=== PATIENT | female | born 1965 | race Caucasian/White ===

== ENCOUNTER 2023-09-26 10:46 | Inpatient (IN) | payer MEDICARE ==
[2023-09-26] MEDS ORDERED: DUONEB 0.5-3 MG/3 ml Neb IH ONE (11:37)
[2023-09-26] MEDS: DUONEB 0.5-3 MG/3 ml Neb IH ONE (11:40)
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
[2023-09-26 11:43] LABS: A-aADO2 70; ABG HEMOGLOBIN 10.5; ABG POTASSIUM 3.5 (3.5-5.1); ARTERIAL BLD GAS O2 SATURATION 97.4 % (95-100); ARTERIAL BLOOD GAS BASE EXCESS 9.1 (-2.0-2.0); ARTERIAL BLOOD GAS FIO2 32 %; ARTERIAL BLOOD GAS PCO2 59 mmHg (35-45); ARTERIAL BLOOD GAS PO2 84 mmHg (75-100); ARTERIAL BLOOD GAS pH 7.39 (7.35-7.45); CARBOXYHEMOGLOBIN 1.5 % THgb (0.0-6.9); HCO3- 35.7 (22-28); HGB O2 SAT 94.7 g/dF (94-100); Lactic Acid 0.9 (0.4-2.0); Methhemoglobin 1.3 % (1.4-1.5); paO2 pAO1 0.55
[2023-09-26 11:44] LABS: Absolute Neutrophil Ct (ANC) 11.72 x10^3/uL (1.4-6.9); BASOPHIL % 0.6 % (0.0-0.4); Basophil (Absolute #) 0.08 x10^3/uL (0-0.4); Eosinophil % 0.9 % (0.00-5.0); Eosinophil (Absolute #) 0.12 x10^3/uL (0-0.5); Hematocrit 35.2 % (35-47); Hemoglobin 10.2 g/dL (12.0-16.0); IMMATURE GRAN # 0.07 x10^3u/L (0.00-0.03); IMMATURE GRAN % 0.5 % (0.00-0.4); Lymphocyte (Absolute #) 0.72 x10^3/uL (1.0-4.6); Lymphocytes % 5.3 % (24.0-44.0); Mean Cell Volume 88.4 fL (78-100); Mean Corpuscular Hemoglobin 25.6 pg (26-32); Mean Platelet Volume 9.5 fL (7.5-11.0); Monocytes % 6.6 % (0.0-12.0); Neutrophil % 86.1 % (36.0-66.0); Platelet Count 237 x10^3/uL (150-450); Red Blood Count 3.98 x10^6/uL (4.1-5.4); Red Cell Distribution Width 17.1 % (11.5-14.0); White Blood Count 13.6 x10^3/uL (4.0-10.5)
[2023-09-26 11:44] LABS: ABG SITE rt rad; ALLEN TEST OK? y
--- NOTE | 2023-09-26 11:47 | XRAY ---
Indication: Short of breath. Comparison: January 16, 2017 Portable apical lordotic chest demonstrates new cardiomegaly obscuring left mid to lower lung. Remaining visualized lungs are inflated and clear. Bony thorax intact.
[2023-09-26] MEDS ORDERED: Sterile H2O 10 ml IJ ONE (11:48)
[2023-09-26] MEDS ORDERED: solu-MEDROL ONE (11:48)
[2023-09-26] MEDS: solu-MEDROL 125 MG, Sterile H2O 10 ml 2 ML IV ONE (11:51)
[2023-09-26 12:15] LABS: ALBUMIN 3.4 g/dL (3.5-5.0); ANION GAP 9.3 MEQ/L (5-15); BILIRUBIN,TOTAL 1.2 mg/dL (0.2-1.3); Calcium 8.3 mg/dL (8.4-10.2); Creatinine 1 0.97 mg/dL (0.52-1.04); EST GLOMERULAR FILTRATION RATE 67.7 ML/MIN; MAGNESIUM 1.8 mg/dL (1.6-2.3); PROCALCITONIN 0.853 ng/mL (0.030-0.080); Potassium 3.5 mmol/L (3.5-5.1); Total Protein 7.1 g/dL (6.3-8.2)
[2023-09-26 12:36] LABS: INFLUENZA A NEGATIVE (NEGATIVE); INFLUENZA B NEGATIVE (NEGATIVE); RESPIRATORY SYNCTIAL VIRUS NEGATIVE (NEGATIVE); SARS-CoV-2 Xpert Express NEGATIVE (NEGATIVE)
[2023-09-26] MEDS ORDERED: LEVOFLOXACIN 750MG/150ML D5W 750 MG/150 ML BAG IV ONE (12:45)
[2023-09-26] MEDS: LEVOFLOXACIN 750MG/150ML D5W 750 MG/150 ML BAG IV STA (12:47)
[2023-09-26 13:23] LABS: Appearance Cloudy (Clear); Bacteria None Seen /HPF (None Seen); Bilirubin Negative (Negative); Blood Large (Negative); Epithelial Cells Rare /HPF (None Seen); Glucose, Urine Negative (Negative); Ketones Negative (Negative); Leukocyte Esterase Negative (Negative); Nitrite Negative (Negative); Ph 5.5 (4.6-8.0); Protein,Urine Dip 30 (Negative); Urobilinogen 0.2 mg/dL (0.2); WBC 0-2 /HPF (0-5)
[2023-09-26 13:47] LABS: RBC 21-50 /HPF (0-5)
[2023-09-26 13:48] LABS: ADD URINE CULTURE? NO (NO); Hyaline Casts 0-2 /LPF (0-2)
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
[2023-09-26] MEDS ORDERED: HUMALOG SQ PRN (15:06)
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
[2023-09-26] MEDS: NYSTOP POWDER 15 GM TP SCH (16:39)
[2023-09-26] MEDS: NORCO 5/325 MG PO PRN (16:40)
[2023-09-26] MEDS: DELTASONE 20 MG PO SCH (16:41)
[2023-09-26] MEDS: PROTONIX 40 MG IV IV SCH (16:41)
--- NOTE | 2023-09-26 17:35 | XRAY ---
Indication: Diabetic foot ulcer/sores. Two-dimensional sonogram and color Doppler imaging major venous vessels left lower leg performed. Comparison: November 04, 2015 Study again limited due to patient body habitus. No gross thrombus seen in the examined deep venous vessels of the left and right leg including greater saphenous vein. Veins demonstrate normal compressibility. Venous waveforms are normal with and without augmentation. Impression: Again Limited exam due to body habitus. Left and right legs again grossly negative for DVT.
[2023-09-26] MEDS: DUONEB 0.5-3 MG/3 ml Neb IH SCH (18:34)
[2023-09-26 20:52] LABS: Appearance Clear (Clear); Bacteria None Seen /HPF (None Seen); Bilirubin Negative (Negative); Blood Trace (Negative); Epithelial Cells None Seen /HPF (None Seen); Glucose, Urine Negative (Negative); Hyaline Casts NONE SEEN /LPF (0-2); Ketones Negative (Negative); Leukocyte Esterase Negative (Negative); Nitrite Negative (Negative); Ph 5.5 (4.6-8.0); Protein,Urine Dip 30 (Negative); Specific Gravity 1.025 (1.005-1.030); Urobilinogen 0.2 mg/dL (0.2); WBC 0-2 /HPF (0-5)
[2023-09-26 20:59] LABS: ADD URINE CULTURE? NO (NO)
[2023-09-26] MEDS: Seroquel 25 MG PO SCH (22:47)
[2023-09-26] MEDS: REQUIP 2MG TAB PO SCH (22:47)
[2023-09-26] MEDS: Cymbalta 30 MG Capsule PO SCH (22:47)
[2023-09-26] MEDS: IMODIUM 2 MG PO PRN (23:05)
[2023-09-27 08:52] LABS: Hematocrit 28.6 % (35-47); Hemoglobin 8.1 g/dL (12.0-16.0); Mean Cell Volume 87.5 fL (78-100); Mean Corpuscular Hemoglobin 24.8 pg (26-32); Mean Corpuscular Hgb Concent. 28.3 g/dL (32-36); Mean Platelet Volume 9.5 fL (7.5-11.0); Platelet Count 160 x10^3/uL (150-450); Red Blood Count 3.27 x10^6/uL (4.1-5.4); Red Cell Distribution Width 16.7 % (11.5-14.0); White Blood Count 4.5 x10^3/uL (4.0-10.5)
[2023-09-27 09:18] LABS: ALBUMIN 2.8 g/dL (3.5-5.0); ANION GAP 4.8 MEQ/L (5-15); BILIRUBIN,TOTAL 0.4 mg/dL (0.2-1.3); Creatinine 1 1.09 mg/dL (0.52-1.04); EST GLOMERULAR FILTRATION RATE 58.9 ML/MIN; Total Protein 5.9 g/dL (6.3-8.2)
--- NOTE | 2023-09-27 09:37 | XRAY ---
Indication: Bilateral leg ulcers. Two-dimensional sonogram and color Doppler imaging major arteries left and right leg performed. Comparison: None Study limited due to patient body habitus. Examination right leg demonstrates minimal/mild scattered arteriosclerotic disease visualized common femoral, superficial femoral, popliteal, posterior tibial, and dorsal pedal arteries without critical stenosis/obstruction. Nonvisualization deep femoral artery. Arterial waveforms are monophasic in posterior tibial artery. Remaining right leg arterial waveforms are multiphasic. Examination left leg demonstrates also demonstrates minimal/mild scattered arteriosclerotic disease visualized common femoral, superficial femoral, popliteal, and dorsal pedal arteries. No critical stenosis/obstruction. Nonvisualization deep femoral and posterior tibial arteries. Arterial waveforms are monophasic in superficial femoral artery. Remaining left leg arterial waveforms are multiphasic. Impression: Limited exam due to patient body habitus. Nonvisualization left/right deep femoral and left posterior tibial arteries. Scattered arteriosclerotic disease bilaterally without critical stenosis/obstruction.
[2023-09-27] MEDS: Levofloxacin 500MG/100ML D5W 500 MG/100 ML BAG IV SCH (09:41)
[2023-09-27] MEDS: NORVASC 5 MG PO SCH (09:42)
[2023-09-27] MEDS: MELOXICAM PO SCH (09:42)
[2023-09-27 09:45] LABS: Slide Review YES
[2023-09-27] MEDS ORDERED: NON-FORMULARY ITEM (Liraglutide [Victoza 2-Pak] 0.6 MG/0.1 ML Box) SQ SCH (10:00)
[2023-09-27] MEDS: BIOTENE MM SCH (11:01)
[2023-09-27] MEDS: Sodium Chloride 0.9% 1000 ML 1,000 ML IV SCH (11:02)
--- NOTE | 2023-09-27 15:25 | PCM.NOTE ---
Date and Time: 09/27/23 1520 Subjective Assessment: 09/26/23 is a 58 year old female with PMHX of morbid obesity, oxygen use at home, type II DM, COPD, HTN, hyperlipidemia, CHF, migraines, PE, OA, and peripheral neuropathy. She was brought in the ER from primary care office with hypoxia and increasing shortness of breath. Patient reports she has been feeling short of breath since July which gets worse with exertion and better with resting with some nonproductive cough and chest soreness at times. Patient oxygen saturation was dropping in the 80s, placed on 3 L oxygen and O2 increased to 92% in ER. Patient denies fever or chills. Patient was originally at primary care office for right heel ulcer which is nonhealing. Denies any fall or trauma. She has multiple sores on her body including, BL legs, BL feet, and buttock. She appears to have a yeast infection under BL breast and abd folds. These areas are also excoriated. Pillow cases have been placed to aide with healing. Podiatry consulted and arterial duplex ordered. She is concerned if she has medicade or not ad this is her reason for not f/u with her care sooner. Case management to discuss with pt. She states she used to go to [facility] for her depression and has not been since February. She would like to go back if possible. She denies suicidal or homicidal thoughts at this time. She is currently on 5LNC. Levaquin, steroids, and duonebs started in the ER for COPD exacerbation, will continue same plan of care. She is c/o pain of right heal 03/22. Burstly has worked well for her in the past. She denies CP, abd pain, N/V/D. 09/27/23 Pt resting in bed. She explains she has been anxious all night about the foot procedure. She is concerned as she may not be able to have anesthesia. She is worried that if she is not asleep she may have a lot of pain and cannot handle this. Advised her to discuss her concerns with podiatry today. She explains her mouth is extremely dry and Biotene addeded to med list. Labs do show some LISETTE today and IVF started, She is on 4LNC, lungs sounds are clear. She denies CP, SOB, abd. pain, N/V/D. - Review of Systems Constitutional: No Fever, No Chills Eyes: No Symptoms Ears, Nose, & Throat: No Symptoms Respiratory: No Cough, No Short Of Breath Cardiac: No Chest Pain, No Edema, No Syncope Abdominal/Gastrointestinal: No Abdominal Pain, No Nausea, No Vomiting, No Livia rrhea Genitourinary Symptoms: No Dysuria Musculoskeletal: No Back Pain, No Neck Pain Skin: Rash ((under breast and skin folds),), Skin Lesions ((multiple, see pics in chart)) Neurological: No Dizziness, No Focal Weakness, No Sensory Changes Psychological: No Symptoms, Anxiety, Depression Endocrine: No Symptoms Hematologic/Lymphatic: No Symptoms Immunological/Allergic: No Symptoms Objective Exam General Appearance: no apparent distress, alert Neurologic Exam: alert, oriented x 3, cooperative, normal mood/affect, nml cerebellar function, sensation nml, No motor deficits Skin Exam: normal color, warm, dry, rash ((Skin folds and under BL breast)), other ((open wound multiple areas see pics in chart, Right heel open lesion, Left foot lateral aspect black.)) Wound Assessment: Skin/Wound Assessment Wound/Incision Assessment Start: 09/26/23 16:14 Text: Status: Active Freq: Q6H Protocol: Document 09/27/23 14:00 MAURIZIO (Rec: 09/27/23 14:12 MAURIZIO [id number]) Wound/Incision Assessment Left Foot Wound Assessment Shift Assessment Wound Type Pressure Ulcer Wound Stage Unstageable Dressing Status Dry & Intact Drainage Amount None Comment DRESSING PER DR. QUIROZ'S NURSE IN PLACE, [place], DRY AND INTACT. Right Foot Wound Assessment Shift Assessment Wound Type DIABETIC ULCER Dressing Status Dry & Intact Drainage Amount None Comment DRESSING PER DR. QUIROZ'S NURSE IN PLACE, [place], DRY AND INTACT. DR. QUIROZ IS CALLNG WOUND A PRESSURE ULCER Left Posterior Thigh Wound Assessment Shift Assessment Wound Type Pressure Ulcer Comment MULTIPLE STAGE II'S AND III'S NOTED. BARRIER CREAM APPLIED AND WEIGHT SHIFT WITH PILOWS, ROGERS IN PLACE TO PROMOTE HEALING Right Posterior Thigh Wound Assessment Shift Assessment Wound Type Stasis Ulcer Wound Stage Stage III Comment BARRIER CREAM APPLIED, WEIGHT SHIFT WITH PILLOWS, ROGERS IN PALCE TO PROMOTE HEALING Medial Other Wound Assessment Shift Assessment Wound Type REDNESS/EXCORIATION Wound Stage Non Pressure Wound Comment REDNESS/EXCORIATION NOTED TO BILATERAL ABDOMINAL/BREAST FOLDS AND GROIN AREA, WILL APPLY POWDER ORDERED Eye Exam: PERRL, EOMI, eyes nml inspection Ears, Nose, Throat Exam: normal ENT inspection, pharynx normal, moist mucous membranes Neck Exam: normal inspection, non-tender, supple, full range of motion Respiratory Exam: normal breath sounds, lungs clear, No respiratory distress Cardiovascular Exam: regular rate/rhythm, normal heart sounds Gastrointestinal/Abdomen Exam: soft, No tenderness, No mass Extremity Exam: normal inspection, normal range of motion Back Exam: normal inspection, normal range of motion, No CVA tenderness, No vertebral tenderness Pelvic Exam: deferred Rectal Exam: deferred OBJECTIVE DATA Vital Signs: Vital Signs - 24 hr Temp Pulse Resp BP Pulse Ox 09/27/23 11:40 97.6 F 56 L 16 103/45 94 L 09/27/23 07:57 97.8 F 60 20 135/62 97 09/27/23 06:56 71 18 97 09/27/23 04:00 97.1 F 58 L 20 113/56 98 09/26/23 23:49 96.9 F 66 22 97/53 98 09/26/23 20:00 98.2 F 72 22 124/57 100 09/26/23 19:52 80 18 98 09/26/23 18:34 70 16 98 09/26/23 16:09 73 20 97 Pain Assessment - Last Documented Pain Intensity 3 Pain Scale Used 0-10 Pain Scale Intake and Output: Intake & Output 09/25/23 09/26/23 09/27/23 09/28/23 11:59 11:59 11:59 11:59 Intake Total 1826 0 Output Total 750 Balance 1076 0 Weight 215.4 kg 214.8 kg Lab Results: Lab Results-Last 24 Hours 09/26/23 09/26/23 09/26/23 Range/Units 11:51 15:32 16:39 WBC (4.0-10.5) x10^3/uL RBC (4.1-5.4) x10^6/uL Hgb (12.0-16.0) g/dL Hct (35-47) % MCV (78-100) fL MCH (26-32) pg MCHC (32-36) g/dL RDW (11.5-14.0) % Plt Count (150-450) x10^3/uL MPV (7.5-11.0) fL Sodium (137-145) mmol/L Potassium (3.5-5.1) mmol/L Chloride (98-107) mmol/L Carbon Dioxide (22-30) mmol/L Anion Gap (5-15) MEQ/L BUN (7-17) mg/dL Creatinine (0.52-1.04) mg/dL Estimated GFR ML/MIN Glucose (74-106) mg/dL POC Glucometer 130 H (74 to 106) mg/dL Hemoglobin A1c 5.23 (4.5-6.0) % Calcium (8.4-10.2) mg/dL Total Bilirubin (0.2-1.3) mg/dL AST (14-36) U/L ALT (0-35) U/L Alkaline Phosphatase (38-126) U/L Troponin I 0.016 (0.000-0.034) ng/mL Serum Total Protein (6.3-8.2) g/dL Albumin (3.5-5.0) g/dL Urine Color (Yellow) Urine Appearance (Clear) Urine pH (4.6-8.0) Ur Specific [place] (1.005-1.030) Urine Protein (Negative) Urine Glucose (UA) (Negative) mg/dL Urine Ketones (Negative) Urine Blood (Negative) Urine Nitrite (Negative) Urine Bilirubin (Negative) Urine Urobilinogen (0.2) mg/dL Ur Leukocyte Esterase (Negative) U Hyaline Cast (Auto) (0-2) /LPF Urine Microscopic RBC (0-5) /HPF Urine Microscopic WBC (0-5) /HPF Ur Epithelial Cells (None Seen) /HPF Urine Bacteria (None Seen) /HPF Urine Culture Reflexed (NO) Slides for Path Review 09/26/23 09/26/23 09/26/23 Range/Units 19:20 19:25 22:00 WBC (4.0-10.5) x10^3/uL RBC (4.1-5.4) x10^6/uL Hgb (12.0-16.0) g/dL Hct (35-47) % MCV (78-100) fL MCH (26-32) pg MCHC (32-36) g/dL RDW (11.5-14.0) % Plt Count (150-450) x10^3/uL MPV (7.5-11.0) fL Sodium (137-145) mmol/L Potassium (3.5-5.1) mmol/L Chloride (98-107) mmol/L Carbon Dioxide (22-30) mmol/L Anion Gap (5-15) MEQ/L BUN (7-17) mg/dL Creatinine (0.52-1.04) mg/dL Estimated GFR ML/MIN Glucose (74-106) mg/dL POC Glucometer 173 H (74 to 106) mg/dL Hemoglobin A1c (4.5-6.0) % Calcium (8.4-10.2) mg/dL Total Bilirubin (0.2-1.3) mg/dL AST (14-36) U/L ALT (0-35) U/L Alkaline Phosphatase (38-126) U/L Troponin I 0.015 (0.000-0.034) ng/mL Serum Total Protein (6.3-8.2) g/dL Albumin (3.5-5.0) g/dL Urine Color Yellow (Yellow) Urine Appearance Clear (Clear) Urine pH 5.5 (4.6-8.0) Ur Specific [place] 1.025 (1.005-1.030) Urine Protein 30 (Negative) Urine Glucose (UA) Negative (Negative) mg/dL Urine Ketones Negative (Negative) Urine Blood Trace (Negative) Urine Nitrite Negative (Negative) Urine Bilirubin Negative (Negative) Urine Urobilinogen 0.2 (0.2) mg/dL Ur Leukocyte Esterase Negative (Negative) U Hyaline Cast (Auto) NONE SEEN (0-2) /LPF Urine Microscopic RBC 3-5 (0-5) /HPF Urine Microscopic WBC 0-2 (0-5) /HPF Ur Epithelial Cells None Seen (None Seen) /HPF Urine Bacteria None Seen (None Seen) /HPF Urine Culture Reflexed NO (NO) Slides for Path Review 09/27/23 09/27/23 09/27/23 Range/Units 07:24 08:47 08:47 WBC 4.5 (4.0-10.5) x10^3/uL RBC 3.27 L (4.1-5.4) x10^6/uL Hgb 8.1 L D (12.0-16.0) g/dL Hct 28.6 L (35-47) % MCV 87.5 (78-100) fL MCH 24.8 L (26-32) pg MCHC 28.3 L (32-36) g/dL RDW 16.7 H (11.5-14.0) % Plt Count 160 (150-450) x10^3/uL MPV 9.5 (7.5-11.0) fL Sodium 135 L (137-145) mmol/L Potassium 4.0 (3.5-5.1) mmol/L Chloride 99 (98-107) mmol/L Carbon Dioxide 35 H (22-30) mmol/L Anion Gap 4.8 L (5-15) MEQ/L BUN 21 H (7-17) mg/dL Creatinine 1.09 H (0.52-1.04) mg/dL Estimated GFR 58.9 ML/MIN Glucose 146 H (74-106) mg/dL POC Glucometer 144 H (74 to 106) mg/dL Hemoglobin A1c (4.5-6.0) % Calcium 8.0 L (8.4-10.2) mg/dL Total Bilirubin 0.40 (0.2-1.3) mg/dL AST 17 (14-36) U/L ALT 9 (0-35) U/L Alkaline Phosphatase 61 (38-126) U/L Troponin I (0.000-0.034) ng/mL Serum Total Protein 5.9 L (6.3-8.2) g/dL Albumin 2.8 L (3.5-5.0) g/dL Urine Color (Yellow) Urine Appearance (Clear) Urine pH (4.6-8.0) Ur Specific [place] (1.005-1.030) Urine Protein (Negative) Urine Glucose (UA) (Negative) mg/dL Urine Ketones (Negative) Urine Blood (Negative) Urine Nitrite (Negative) Urine Bilirubin (Negative) Urine Urobilinogen (0.2) mg/dL Ur Leukocyte Esterase (Negative) U Hyaline Cast (Auto) (0-2) /LPF Urine Microscopic RBC (0-5) /HPF Urine Microscopic WBC (0-5) /HPF Ur Epithelial Cells (None Seen) /HPF Urine Bacteria (None Seen) /HPF Urine Culture Reflexed (NO) Slides for Path Review YES 09/27/23 Range/Units 11:15 WBC (4.0-10.5) x10^3/uL RBC (4.1-5.4) x10^6/uL Hgb (12.0-16.0) g/dL Hct (35-47) % MCV (78-100) fL MCH (26-32) pg MCHC (32-36) g/dL RDW (11.5-14.0) % Plt Count (150-450) x10^3/uL MPV (7.5-11.0) fL Sodium (137-145) mmol/L Potassium (3.5-5.1) mmol/L Chloride (98-107) mmol/L Carbon Dioxide (22-30) mmol/L Anion Gap (5-15) MEQ/L BUN (7-17) mg/dL Creatinine (0.52-1.04) mg/dL Estimated GFR ML/MIN Glucose (74-106) mg/dL POC Glucometer 146 H (74 to 106) mg/dL Hemoglobin A1c (4.5-6.0) % Calcium (8.4-10.2) mg/dL Total Bilirubin (0.2-1.3) mg/dL AST (14-36) U/L ALT (0-35) U/L Alkaline Phosphatase (38-126) U/L Troponin I (0.000-0.034) ng/mL Serum Total Protein (6.3-8.2) g/dL Albumin (3.5-5.0) g/dL Urine Color (Yellow) Urine Appearance (Clear) Urine pH (4.6-8.0) Ur Specific [place] (1.005-1.030) Urine Protein (Negative) Urine Glucose (UA) (Negative) mg/dL Urine Ketones (Negative) Urine Blood (Negative) Urine Nitrite (Negative) Urine Bilirubin (Negative) Urine Urobilinogen (0.2) mg/dL Ur Leukocyte Esterase (Negative) U Hyaline Cast (Auto) (0-2) /LPF Urine Microscopic RBC (0-5) /HPF Urine Microscopic WBC (0-5) /HPF Ur Epithelial Cells (None Seen) /HPF Urine Bacteria (None Seen) /HPF Urine Culture Reflexed (NO) Slides for Path Review Radiology Exams: Radiology Procedures Category Date Time Status ARTERIAL BILAT LOWER EXTREMITY [US] Routine Exams 09/27/23 15:06 Completed CHEST 1 VIEW (PORTABLE) Stat Exams 09/26/23 11:12 Completed ECHO W/2D AND DOPPLER [US] Routine Exams 09/27/23 08:00 Taken VENOUS BILATERAL EXTREMITY [US] Urgent Exams 09/26/23 15:45 Completed Multi-Disciplinary Progress Notes: Multi-Disciplinary Progress Notes 09/27/23 09:13 Pharmacy Note by Jigar Jarquin Please be aware of possible drug interaction with Levaquin and Celexa and Seroquel. May prolong QT interval. Addendum entered and electronically signed by Jigar Jarquin 09/27/23 09:16: Atarax and Seroquel Initialized on 09/27/23 09:13 - END OF NOTE Assessment/Plan (1) COPD exacerbation Current Visit: Yes Status: Acute Code(s): J44.1 - CHRONIC OBSTRUCTIVE PULMONARY DISEASE W (ACUTE) EXACERBATION (2) Acute hypoxic respiratory failure Current Visit: Yes Status: Acute Code(s): J96.01 - ACUTE RESPIRATORY FAILURE WITH HYPOXIA (3) Candidiasis Current Visit: Yes Status: Acute Code(s): B37.9 - CANDIDIASIS, UNSPECIFIED (4) Wounds, multiple Current Visit: Yes Status: Acute Code(s): T07.XXXA - UNSPECIFIED MULTIPLE INJURIES, INITIAL ENCOUNTER (5) Restless legs Current Visit: Yes Status: Chronic (6) DM type 2 (diabetes mellitus, type 2) Current Visit: Yes Status: Chronic (7) Morbid obesity Current Visit: No Status: Chronic Code(s): E66.01 - MORBID (SEVERE) OBESITY DUE TO EXCESS CALORIES (8) Cardiomegaly Current Visit: Yes Status: Acute Assessment & Plan: 1) COPD exacerbation Current Visit: Yes Status: Acute Assessment & Plan: - krys Alvarado steriods - 5lNC 97% - BL RA, reports she has had home O2 in the past at home 09/27 - 4LNC Code(s): J44.1 - CHRONIC OBSTRUCTIVE PULMONARY DISEASE W (ACUTE) EXACERBATION (2) Acute hypoxic respiratory failure Current Visit: Yes Status: Acute Assessment & Plan: - on 5LNC - chest XR 09/26 Portable apical lordotic chest demonstrates new cardiomegaly obscuring left mid to lower lung. Remaining visualized lungs are inflated and clear. Bony thorax intact 09/27 - 4lNC Code(s): J96.01 - ACUTE RESPIRATORY FAILURE WITH HYPOXIA (3) Candidiasis Current Visit: Yes Status: Acute Assessment & Plan: - under BL breast and abd skin folds - nystatin powder - pillow cases under affected areas Code(s): B37.9 - CANDIDIASIS, UNSPECIFIED (4) Wounds, multiple Current Visit: Yes Status: Acute Assessment & Plan: - multiple wounds in various stages of healing on body- see pics in chart - perineal and sacral wounds- rogers placed, pt incontinent - Podiatry consulted for right foot wound - plan is for I& D tomorrow of right heal wound in OR - NPO at midnight - Narcotic pain control 09/27 - I& D scheduled for today with podiatry - arterial US 09/27 Impression: Limited exam due to patient body habitus. Nonvisualization left/right deep femoral and left posterior tibial arteries. Scattered arteriosclerotic disease bilaterally without critical stenosis/obstruction. - VD BLLE 09/27 Impression: Again Limited exam due to body habitus. Left and right legs again grossly negative for DVT. Code(s): T07.XXXA - UNSPECIFIED MULTIPLE INJURIES, INITIAL ENCOUNTER (5) Restless legs Current Visit: Yes Status: Chronic Assessment & Plan: - continue ropinirole (6) DM type 2 (diabetes mellitus, type 2) Current Visit: Yes Status: Chronic Assessment & Plan: - A1C pending - accuchecks ac/hs - does not take any medication at home - Const carb diet - Humalog s/s 09/27 - A1C 5.23- controlled (7) Morbid obesity Current Visit: No Status: Chronic Assessment & Plan: - advised diet and exercise control Code(s): E66.01 - MORBID (SEVERE) OBESITY DUE TO EXCESS CALORIES (8) Cardiomegaly Current Visit: Yes Status: Acute Assessment & Plan: - seen on CXR and new - Echo- EJ per nail technician 51% - Will need Op cardiology f/u VTE: SCD's PPI: protonix Next of Kin: Ellis Shaw [phone] Code status: Full D/c plan: 2-3 days Code(s): I51.7 - CARDIOMEGALY Code(s): I51.7 - CARDIOMEGALY (9) LISETTE (acute kidney injury) Current Visit: Yes Status: Acute Assessment & Plan: - trend labs - IVF started Code(s): N17.9 - ACUTE KIDNEY FAILURE, UNSPECIFIED
[2023-09-27] MEDS: REQUIP 2MG TAB PO SCH (21:27)
[2023-09-28 08:28] LABS: Hemoglobin 8.7 g/dL (12.0-16.0); Mean Cell Volume 89.6 fL (78-100); Mean Corpuscular Hemoglobin 25.1 pg (26-32); Mean Corpuscular Hgb Concent. 28.1 g/dL (32-36); Mean Platelet Volume 9.4 fL (7.5-11.0); Platelet Count 191 x10^3/uL (150-450); Red Blood Count 3.46 x10^6/uL (4.1-5.4); Red Cell Distribution Width 16.5 % (11.5-14.0); White Blood Count 4.3 x10^3/uL (4.0-10.5)
[2023-09-28 09:05] LABS: ALBUMIN 2.7 g/dL (3.5-5.0); ANION GAP 6.2 MEQ/L (5-15); BILIRUBIN,TOTAL 0.3 mg/dL (0.2-1.3); Creatinine 1 1.14 mg/dL (0.52-1.04); EST GLOMERULAR FILTRATION RATE 55.8 ML/MIN; Potassium 4.2 mmol/L (3.5-5.1); Total Protein 5.8 g/dL (6.3-8.2)
[2023-09-28 09:09] LABS: Slide Review YES
[2023-09-28] MEDS: CLARITIN 10 MG PO PRN (09:38)
--- NOTE | 2023-09-28 11:45 | PCM.DS ---
Discharge Summary Date of Admission: 09/26/23 13:56 Date of Discharge: 09/28/23 Admitting Physician: NICK CALL MD Consults: Consults on Case 09/26/23 15:01 Consult Podiatry ROUTINE 09/26/23 16:14 Case Management SDOH DC Needs Assessment ROUTINE 09/27/23 10:40 Nutritional Consult ROUTINE Primary Care Provider: JOLEEN BECKER Allergies Allergies albuterol Allergy (Intermediate, Verified 11/04/15 09:13) Difficulty Breathing adhesive Allergy (Verified 04/28/15 22:26) codeine [Codeine] Allergy (Verified 04/28/15 22:26) Headache INCREASE HTN latex Allergy (Verified 04/28/15 22:26) Penicillins Allergy (Verified 04/28/15 22:26) Nausea and Vomiting SWELLING pineapple [Pineapple] Allergy (Verified 04/28/15 22:26) vancomycin Adverse Reaction (Mild, Verified 11/07/15 17:40) Itching Hospital Summary - Hospital Course Hospital Course: 09/26/23 is a 58 year old female with PMHX of morbid obesity, oxygen use at home, type II DM, COPD, HTN, hyperlipidemia, CHF, migraines, PE, OA, and peripheral neuropathy. She was brought in the ER from primary care office with hypoxia and increasing shortness of breath. Patient reports she has been feeling short of breath since July which gets worse with exertion and better with resting with some nonproductive cough and chest soreness at times. Patient oxygen saturation was dropping in the 80s, placed on 3 L oxygen and O2 increased to 92% in ER. Patient denies fever or chills. Patient was originally at primary care office for right heel ulcer which is nonhealing. Denies any fall or trauma. She has multiple sores on her body including, BL legs, BL feet, and buttock. She appears to have a yeast infection under BL breast and abd folds. These areas are also excoriated. Pillow cases have been placed to aide with healing. Podiatry consulted and arterial duplex ordered. She is concerned if she has medicade or not ad this is her reason for not f/u with her care sooner. Case management to discuss with pt. She states she used to go to [facility] for her depression and has not been since February. She would like to go back if possible. She denies suicidal or homicidal thoughts at this time. She is currently on 5LNC. Levaquin, steroids, and duonebs started in the ER for COPD exacerbation, will continue same plan of care. She is c/o pain of right heal 03/22. Semadic has worked well for her in the past. She denies CP, abd pain, N/V/D. 09/27/23 Pt resting in bed. She explains she has been anxious all night about the foot procedure. She is concerned as she may not be able to have anesthesia. She is worried that if she is not asleep she may have a lot of pain and cannot handle this. Advised her to discuss her concerns with podiatry today. She explains her mouth is extremely dry and Biotene addeded to med list. Labs do show some LISETTE today and IVF started, She is on 4LNC, lungs sounds are clear. She denies CP, SOB, abd. pain, N/V/D. 09/28/23 Pt resting in bed. Podiatry is ok with d/c and f/u OP. She did have an I&D procedure yesterday. BL legs and feet wrapped. She is to be weight bearing as tolerated. Keflex has been sent in by podiatry. No need for antibiotics or steroids for COPD. She is doing well and on room air. She denies CP, SOB, Abd. pain, N/V/D. - Vitals & Intake/Output Vital Signs: Vital Signs Temperature 97.2 F 09/28/23 08:00 Pulse Rate 75 09/28/23 08:00 Respiratory Rate 20 09/28/23 08:00 Blood Pressure 123/59 09/28/23 08:00 O2 Sat by Pulse Oximetry 95 09/28/23 08:00 Intake & Output: Intake & Output 09/25/23 09/26/23 09/27/23 09/28/23 11:59 11:59 11:59 11:59 Intake Total 1826 680 Output Total 750 275 Balance 1076 405 Weight 215.4 kg 214.8 kg - Lab Result Diagrams: 09/28/23 08:20 09/28/23 08:20 Lab Results-Last 24 Hrs: Lab Results-Last 24 Hours 09/27/23 09/27/23 09/28/23 Range/Units 16:19 22:19 08:09 WBC (4.0-10.5) x10^3/uL RBC (4.1-5.4) x10^6/uL Hgb (12.0-16.0) g/dL Hct (35-47) % MCV (78-100) fL MCH (26-32) pg MCHC (32-36) g/dL RDW (11.5-14.0) % Plt Count (150-450) x10^3/uL MPV (7.5-11.0) fL Sodium (137-145) mmol/L Potassium (3.5-5.1) mmol/L Chloride (98-107) mmol/L Carbon Dioxide (22-30) mmol/L Anion Gap (5-15) MEQ/L BUN (7-17) mg/dL Creatinine (0.52-1.04) mg/dL Estimated GFR ML/MIN Glucose (74-106) mg/dL POC Glucometer 119 H 173 H 126 H (74 to 106) mg/dL Calcium (8.4-10.2) mg/dL Total Bilirubin (0.2-1.3) mg/dL AST (14-36) U/L ALT (0-35) U/L Alkaline Phosphatase (38-126) U/L Serum Total Protein (6.3-8.2) g/dL Albumin (3.5-5.0) g/dL Slides for Path Review 09/28/23 09/28/23 Range/Units 08:20 08:20 WBC 4.3 (4.0-10.5) x10^3/uL RBC 3.46 L (4.1-5.4) x10^6/uL Hgb 8.7 L (12.0-16.0) g/dL Hct 31.0 L (35-47) % MCV 89.6 (78-100) fL MCH 25.1 L (26-32) pg MCHC 28.1 L (32-36) g/dL RDW 16.5 H (11.5-14.0) % Plt Count 191 (150-450) x10^3/uL MPV 9.4 (7.5-11.0) fL Sodium 136 L (137-145) mmol/L Potassium 4.2 (3.5-5.1) mmol/L Chloride 100 (98-107) mmol/L Carbon Dioxide 34 H (22-30) mmol/L Anion Gap 6.2 (5-15) MEQ/L BUN 27 H (7-17) mg/dL Creatinine 1.14 H (0.52-1.04) mg/dL Estimated GFR 55.8 ML/MIN Glucose 134 H (74-106) mg/dL POC Glucometer (74 to 106) mg/dL Calcium 8.0 L (8.4-10.2) mg/dL Total Bilirubin 0.30 (0.2-1.3) mg/dL AST 16 (14-36) U/L ALT 9 (0-35) U/L Alkaline Phosphatase 60 (38-126) U/L Serum Total Protein 5.8 L (6.3-8.2) g/dL Albumin 2.7 L (3.5-5.0) g/dL Slides for Path Review YES Micro Results-Entire Visit: Microbiology 09/26/23 19:20 Urine Culture - Final Catherized NO GROWTH 09/26/23 16:43 Wound Culture - Preliminary Heel - Right GRAM POSITIVE ID AND SENSITIVITY PENDING 09/26/23 11:38 Blood Culture - Preliminary Blood Accuchecks Date 09/28/23 Time 08:25 - Radiology Exams Ordered Rad Exams-Entire Visit: Radiology Procedures Category Date Time Status ARTERIAL BILAT LOWER EXTREMITY [US] Routine Exams 09/27/23 15:06 Completed CHEST 1 VIEW (PORTABLE) Stat Exams 09/26/23 11:12 Completed ECHO W/2D AND DOPPLER [US] Routine Exams 09/27/23 08:00 Taken VENOUS BILATERAL EXTREMITY [US] Urgent Exams 09/26/23 15:45 Completed - Procedures and Test Procedures and Tests throughout Hospitalization: Therapy Orders & Screens 09/26/23 11:58 Respiratory Therapy Assessment DAILY Comment: 09/26/23 14:14 Oxygen Nasal Cannula 3 lpm Comment: Respiratory Therapy Consult ONCE Comment: Reason For Exam: 09/26/23 16:02 Respiratory Therapy Assessment DAILY Comment: Diagnosis: copd exacerbation 09/26/23 16:14 OT Screen per Nursing Assess ONCE Comment: Protocol Order Physician Instructions: Greater than 3 points order OT Admission Screening Reason For Exam: Triggered on Admission Diagnosis: copd exacerbation Open Wound/Cellutlitis/Pressure Ulcers: Yes Acute Fx/ORIF/Change in wt bearing status: Yes Severe MUSCULOSKELETAL pain: No ADL Dysfunction: Yes Acute CVA w/Hemiparesis/Hemiplegia: No Decreased Functional Mobility/Strength: Yes Sprain/Strain: No Acute Post-op Mobility Dysfunction: No Total Points: 14 PT Screen per Nursing Assess ONCE Comment: Protocol Order Physician Instructions: Greater than 3 points order PT Admission Screenin Reason For Exam: Triggered on Admission Diagnosis: copd exacerbation Open Wound/Cellutlitis/Pressure Ulcers: Yes Acute Fx/ORIF/Change in wt bearing status: Yes Severe MUSCULOSKELETAL pain: No ADL Dysfunction: Yes Acute CVA w/Hemiparesis/Hemiplegia: No Decreased Functional Mobility/Strength: Yes Sprain/Strain: No Acute Post-op Mobility Dysfunction: No Total Points: 14 RT Screen per Nursing Assess ONCE Comment: Protocol Order Physician Instructions: Greater than 3 points order RT Admission Screen Reason For Exam: Triggered on Admission Diagnosis: copd exacerbation Diagnosis: copd exacerbation Pneumonia: No Home O2: No Asthma: No CHF: Yes Home CPAP/BIPAP: Yes Home Nebs/MDI: No Total Points: 8 09/26/23 17:04 RT Miscellaneous Order ROUTINE Comment: Physician Instructions: Reason For Exam: CPAP at [facility] Diagnosis: copd exacerbation 09/26/23 21:00 BiPap/CPAP ROUTINE Comment: CPAP 16 Diagnosis: copd exacerbation 09/28/23 10:38 Qualify for Home Oxygen TODAY Comment: Diagnosis: copd exacerbation Discharge Exam General Appearance: no apparent distress, alert, obese Neurologic Exam: alert, oriented x 3, cooperative, normal mood/affect, nml cerebellar function, sensation nml, No motor deficits Eye Exam: PERRL, EOMI, eyes nml inspection Ears, Nose, Throat Exam: normal ENT inspection, pharynx normal, moist mucous membranes Neck Exam: normal inspection, non-tender, supple, full range of motion Respiratory Exam: normal breath sounds, lungs clear, No respiratory distress Cardiovascular Exam: regular rate/rhythm, normal heart sounds Gastrointestinal/Abdomen Exam: soft, No tenderness, No mass Pelvic Exam: deferred Rectal Exam: deferred Back Exam: normal inspection, normal range of motion, No CVA tenderness, No vertebral tenderness Extremity Exam: normal inspection, normal range of motion, tenderness (BLLE), other (BLLE wrapped) Skin Exam: normal color, warm, dry Wound Assessment: Skin/Wound Assessment Wound/Incision Assessment Start: 09/26/23 16:14 Text: Status: Active Freq: Q6H Protocol: Document 09/28/23 08:00 [facility] (Rec: 09/28/23 08:42 [facility] [id number]) Wound/Incision Assessment Left Foot Wound Assessment Shift Assessment Wound Type Pressure Ulcer Dressing Status Dry & Intact Drainage Amount None Comment Dressing change done by PETR Cuevas Dr. nurse this AM, Zhane boots placed. Right Foot Wound Assessment Shift Assessment Wound Type DIABETIC ULCER Dressing Status Dry & Intact Drainage Amount None Comment Dressing change done by PETR Cuevas Dr. nurse this AM, Zhane boots placed. Left Posterior Thigh Wound Assessment Shift Assessment Wound Type SEE COMMENT BELOW Comment HEALING MULTIPLE STAGE II'S AND III'S WITH SHEARING NOTED. CONTINUE TO USE BARRIER CREAM PRN AND WEIGHT SHIFT WITH PILOWS, ROGERS IN PLACE TO PROMOTE HEALING. Right Posterior Thigh Wound Assessment Shift Assessment Wound Type SEE COMMENT BELOW Wound Stage Stage III Comment HEALING STAGE III WITH SHEARING NOTED. CONTINUE TO USE BARRIER CREAM PRN AND WEIGHT SHIFT WITH PILOWS, ROGERS IN PLACE TO PROMOTE HEALING. Medial Other Wound Assessment Shift Assessment Wound Type REDNESS/EXCORIATION Wound Stage Non Pressure Wound Comment REDNESS/EXCORIATION NOTED TO BILATERAL ABDOMINAL/BREAST FOLDS AND GROIN AREA, POWDER APPLIED ORDERED. REMAINS TRUE. Wound Photo Photo Taken No Comment: SEE CHART. Final Diagnosis/Problem List - Final Discharge Diagnosis/Problem (1) COPD exacerbation Current Visit: Yes Status: Acute Code(s): J44.1 - CHRONIC OBSTRUCTIVE PUL MONARY DISEASE W (ACUTE) EXACERBATION (2) Acute hypoxic respiratory failure Current Visit: Yes Status: Acute Code(s): J96.01 - ACUTE RESPIRATORY FAILURE WITH HYPOXIA (3) Candidiasis Current Visit: Yes Status: Acute Code(s): B37.9 - CANDIDIASIS, UNSPECIFIED (4) Wounds, multiple Current Visit: Yes Status: Acute Code(s): T07.XXXA - UNSPECIFIED MULTIPLE INJURIES, INITIAL ENCOUNTER (5) Restless legs Current Visit: Yes Status: Chronic (6) DM type 2 (diabetes mellitus, type 2) Current Visit: Yes Status: Chronic (7) Morbid obesity Current Visit: No Status: Chronic Code(s): E66.01 - MORBID (SEVERE) OBESITY DUE TO EXCESS CALORIES (8) Cardiomegaly Current Visit: Yes Status: Acute Code(s): I51.7 - CARDIOMEGALY (9) LISETTE (acute kidney injury) Current Visit: Yes Status: Acute Assessment & Plan: 1) COPD exacerbation Current Visit: Yes Status: Acute Assessment & Plan: - Levaquin, duonebs, steriods - 5lNC 97% - BL RA, reports she has had home O2 in the past at home 09/27 - 4LNC 09/28 - RT eval for home O2 needs - Stop antibiotics, steroids and duonebs Code(s): J44.1 - CHRONIC OBSTRUCTIVE PULMONARY DISEASE W (ACUTE) EXACERBATION (2) Acute hypoxic respiratory failure Current Visit: Yes Status: Acute Assessment & Plan: - on 5LNC - chest XR 09/26 Portable apical lordotic chest demonstrates new cardiomegaly obscuring left mid to lower lung. Remaining visualized lungs are inflated and clear. Bony thorax intact 09/27 - 4lNC 09/28 - RA at rest Code(s): J96.01 - ACUTE RESPIRATORY FAILURE WITH HYPOXIA (3) Candidiasis Current Visit: Yes Status: Acute Assessment & Plan: - under BL breast and abd skin folds - nystatin powder - pillow cases under affected areas Code(s): B37.9 - CANDIDIASIS, UNSPECIFIED (4) Wounds, multiple Current Visit: Yes Status: Acute Assessment & Plan: - multiple wounds in various stages of healing on body- see pics in chart - perineal and sacral wounds- rogers placed, pt incontinent - Podiatry consulted for right foot wound - plan is for I& D tomorrow of right heal wound in OR - NPO at midnight - Narcotic pain control 09/27 - I& D scheduled for today with podiatry - arterial US 09/27 Impression: Limited exam due to patient body habitus. Nonvisualization left/right deep femoral and left posterior tibial arteries. Scattered arteriosclerotic disease bilaterally without critical stenosis/obstruction. - VD BLLE 09/27 Impression: Again Limited exam due to body habitus. Left and right legs again grossly negative for DVT. 09/28 - BL legs and feet wrapped by podiatry - POD #1 I&D right foot wound - F/u with podiatry OP - weight bearing as tolerated - Keflex sent to pharmacy Code(s): T07.XXXA - UNSPECIFIED MULTIPLE INJURIES, INITIAL ENCOUNTER (5) Restless legs Current Visit: Yes Status: Chronic Assessment & Plan: - continue ropinirole (6) DM type 2 (diabetes mellitus, type 2) Current Visit: Yes Status: Chronic Assessment & Plan: - A1C pending - accuchecks ac/hs - does not take any medication at home - Const carb diet - Humalog s/s 09/27 - A1C 5.23- controlled (7) Morbid obesity Current Visit: No Status: Chronic Assessment & Plan: - advised diet and exercise control Code(s): E66.01 - MORBID (SEVERE) OBESITY DUE TO EXCESS CALORIES (8) Cardiomegaly Current Visit: Yes Status: Acute Assessment & Plan: - seen on CXR and new - Echo- EJ per technical supervisor 51% - Will need Op cardiology f/u Code(s): N17.9 - ACUTE KIDNEY FAILURE, UNSPECIFIED - Discharge Discharge Date: 09/28/23 Disposition: Home, Self-Care Condition: Fair Prescriptions: New Cephalexin Mh 500 mg [Keflex 500 mg] 500 mg PO Q6H 7 Days #42 cap Nystatin Powder 15 gm [Nystop Powder 15 gm] 1 gm TP BID 10 Days #1 applic Continue Ropinirole 2Mg [Requip 2Mg Tab] 4 mg PO HS Cetirizine HCl [Zyrtec] 10 mg PO DAILY Albuterol Sulfate Mdi [ALBUTEROL/Proair Hfa MDI] 2 puff IH Q4HPRN PRN PRN Reason: Shortness Of Breath/Wheezing Duloxetine HCl 30 mg [Cymbalta 30 MG Capsule] 30 mg PO BID hydrOXYzine pamoate [Hydroxyzine Pamoate] 25 mg PO TID PRN PRN Reason: Anxiety Liraglutide [Victoza 2-Raghav] 1.2 mg SQ DAILY Quetiapine Fumarate 50 mg PO HS ondansetron HCL [Ondansetron HCl] 4 mg PO Q8H PRN PRN Reason: Nausea Meloxicam 15 mg [Meloxicam 15 MG] 15 mg PO DAILY Amlodipine Besylate 5 mg [Norvasc 5 mg] 5 mg PO DAILY Follow up with: RICHIE PETERSON DPM [ACTIVE STAFF] - 10/04/23 9:30 am JOLEEN BECKER NP [Primary Care Provider] - 10/05/23 2:45 pm
[2023-09-28] MEDS: Flagyl 500 MG PO SCH (14:07)
--- NOTE | 2023-09-28 14:24 | PCM.NOTE ---
Date and Time: 09/28/23 141 Subjective Assessment: 09/26/23 is a 58 year old female with PMHX of morbid obesity, oxygen use at home, type II DM, COPD, HTN, hyperlipidemia, CHF, migraines, PE, OA, and peripheral neuropathy. She was brought in the ER from primary care office with hypoxia and increasing shortness of breath. Patient reports she has been feeling short of breath since July which gets worse with exertion and better with resting with some nonproductive cough and chest soreness at times. Patient oxygen saturation was dropping in the 80s, placed on 3 L oxygen and O2 increased to 92% in ER. Patient denies fever or chills. Patient was originally at primary care office for right heel ulcer which is nonhealing. Denies any fall or trauma. She has multiple sores on her body including, BL legs, BL feet, and buttock. She appears to have a yeast infection under BL breast and abd folds. These areas are also excoriated. Pillow cases have been placed to aide with healing. Podiatry consulted and arterial duplex ordered. She is concerned if she has medicade or not ad this is her reason for not f/u with her care sooner. Case management to discuss with pt. She states she used to go to [facility] for her depression and has not been since February. She would like to go back if possible. She denies suicidal or homicidal thoughts at this time. She is currently on 5LNC. Levaquin, steroids, and duonebs started in the ER for COPD exacerbation, will continue same plan of care. She is c/o pain of right heal 03/22. Creactives has worked well for her in the past. She denies CP, abd pain, N/V/D. 09/27/23 Pt resting in bed. She explains she has been anxious all night about the foot procedure. She is concerned as she may not be able to have anesthesia. She is worried that if she is not asleep she may have a lot of pain and cannot handle this. Advised her to discuss her concerns with podiatry today. She explains her mouth is extremely dry and Biotene addeded to med list. Labs do show some LISETTE today and IVF started, She is on 4LNC, lungs sounds are clear. She denies CP, SOB, abd. pain, N/V/D. 09/28/23 Pt resting in bed. Podiatry is ok with d/c and f/u OP. She did have an I&D procedure yesterday. BL legs and feet wrapped. She is to be weight bearing as tolerated. Per podiatry will need to d/c on Keflex. Rogers Urine appears dark, UC with C&S sent. Per nurse urine is foul smelling. Rogers removed and pt got up to bed side commode and was unable to get up. It took several people to get her back in bed. Case management discussed with pt and she is willing to go to rehab. She is psychologically stable but frustrated with deconditioning. She is c/o vaginal fishy odor, metronidazole started for vaginosis. Will continue IVF for LISETTE. Continue steroids and antibiotics for COPD exacerbation. She denies CP, SOB, Abd. pain, N/V/D. - Review of Systems Constitutional: Weakness, No Fever, No Chills Eyes: No Symptoms Ears, Nose, & Throat: No Symptoms Respiratory: Short Of Breath, No Cough Cardiac: No Chest Pain, No Edema, No Syncope Abdominal/Gastrointestinal: No Abdominal Pain, No Nausea, No Vomiting, No Diarrhea Genitourinary Symptoms: Vaginal Itching (with fishy odor), Other (dark urine), No Dysuria Musculoskeletal: No Back Pain, No Neck Pain Skin: No Rash Neurological: No Dizziness, No Focal Weakness, No Sensory Changes Psychological: No Symptoms Endocrine: No Symptoms Hematologic/Lymphatic: No Symptoms Immunological/Allergic: No Symptoms Objective Exam General Appearance: no apparent distress, alert, obese Neurologic Exam: alert, oriented x 3, cooperative, normal mood/affect, nml cerebellar function, sensation nml, No motor deficits Skin Exam: normal color, warm, dry Wound Assessment: Skin/Wound Assessment Wound/Incision Assessment Start: 09/26/23 16:14 Text: Status: Active Freq: Q6H Protocol: Document 09/28/23 08:00 [facility] (Rec: 09/28/23 08:42 [facility] [id number]) Wound/Incision Assessment Left Foot Wound Assessment Shift Assessment Wound Type Pressure Ulcer Dressing Status Dry & Intact Drainage Amount None Comment Dressing change done by PETR Cuevas Dr. nurse this AM, Zhane boots placed. Right Foot Wound Assessment Shift Assessment Wound Type DIABETIC ULCER Dressing Status Dry & Intact Drainage Amount None Comment Dressing change done by PETR Cuevas Dr. nurse this AM, Zhane boots placed. Left Posterior Thigh Wound Assessment Shift Assessment Wound Type SEE COMMENT BELOW Comment HEALING MULTIPLE STAGE II'S AND III'S WITH SHEARING NOTED. CONTINUE TO USE BARRIER CREAM PRN AND WEIGHT SHIFT WITH PILOWS, ROGERS IN PLACE TO PROMOTE HEALING. Right Posterior Thigh Wound Assessment Shift Assessment Wound Type SEE COMMENT BELOW Wound Stage Stage III Comment HEALING STAGE III WITH SHEARING NOTED. CONTINUE TO USE BARRIER CREAM PRN AND WEIGHT SHIFT WITH PILOWS, ROGERS IN PLACE TO PROMOTE HEALING. Medial Other Wound Assessment Shift Assessment Wound Type REDNESS/EXCORIATION Wound Stage Non Pressure Wound Comment REDNESS/EXCORIATION NOTED TO BILATERAL ABDOMINAL/BREAST FOLDS AND GROIN AREA, POWDER APPLIED ORDERED. REMAINS TRUE. Wound Photo Photo Taken No Comment: SEE CHART. Eye Exam: PERRL, EOMI, eyes nml inspection Ears, Nose, Throat Exam: normal ENT inspection, pharynx normal, moist mucous membranes Neck Exam: normal inspection, non-tender, supple, full range of motion Respiratory Exam: normal breath sounds, lungs clear, No respiratory distress Cardiovascular Exam: regular rate/rhythm, normal heart sounds Gastrointestinal/Abdomen Exam: soft, No tenderness, No mass Extremity Exam: normal inspection, normal range of motion Back Exam: normal inspection, normal range of motion, No CVA tenderness, No vertebral tenderness Pelvic Exam: deferred Rectal Exam: deferred OBJECTIVE DATA Vital Signs: Vital Signs - 24 hr Temp Pulse Resp BP Pulse Ox 09/28/23 12:20 93 L 09/28/23 12:00 96.3 F 56 L 18 133/67 98 09/28/23 08:00 97.2 F 75 20 123/59 95 09/28/23 05:12 55 L 16 94 L 09/28/23 04:00 96.9 F 54 L 20 117/53 98 09/27/23 23:52 97.8 F 52 L 18 119/63 98 09/27/23 20:00 98.0 F 60 20 112/62 98 09/27/23 17:00 50 L 16 99 09/27/23 16:00 98.4 F 45 L 14 99 Pain Assessment - Last Documented Pain Intensity 6 Pain Scale Used 0-10 Pain Scale Intake and Output: Intake & Output 02/14/09/27/23 09/28/23 09/29/23 11:59 11:59 11:59 11:59 Intake Total 1826 680 Output Total 750 275 300 Balance 1076 405 -300 Weight 215.4 kg 214.8 kg Lab Results: Lab Results-Last 24 Hours 09/27/23 09/27/23 09/28/23 Range/Units 16:19 22:19 08:09 WBC (4.0-10.5) x10^3/uL RBC (4.1-5.4) x10^6/uL Hgb (12.0-16.0) g/dL Hct (35-47) % MCV (78-100) fL MCH (26-32) pg MCHC (32-36) g/dL RDW (11.5-14.0) % Plt Count (150-450) x10^3/uL MPV (7.5-11.0) fL Sodium (137-145) mmol/L Potassium (3.5-5.1) mmol/L Chloride (98-107) mmol/L Carbon Dioxide (22-30) mmol/L Anion Gap (5-15) MEQ/L BUN (7-17) mg/dL Creatinine (0.52-1.04) mg/dL Estimated GFR ML/MIN Glucose (74-106) mg/dL POC Glucometer 119 H 173 H 126 H (74 to 106) mg/dL Calcium (8.4-10.2) mg/dL Total Bilirubin (0.2-1.3) mg/dL AST (14-36) U/L ALT (0-35) U/L Alkaline Phosphatase (38-126) U/L Serum Total Protein (6.3-8.2) g/dL Albumin (3.5-5.0) g/dL Slides for Path Review 09/28/23 09/28/23 09/28/23 Range/Units 08:20 08:20 11:57 WBC 4.3 (4.0-10.5) x10^3/uL RBC 3.46 L (4.1-5.4) x10^6/uL Hgb 8.7 L (12.0-16.0) g/dL Hct 31.0 L (35-47) % MCV 89.6 (78-100) fL MCH 25.1 L (26-32) pg MCHC 28.1 L (32-36) g/dL RDW 16.5 H (11.5-14.0) % Plt Count 191 (150-450) x10^3/uL MPV 9.4 (7.5-11.0) fL Sodium 136 L (137-145) mmol/L Potassium 4.2 (3.5-5.1) mmol/L Chloride 100 (98-107) mmol/L Carbon Dioxide 34 H (22-30) mmol/L Anion Gap 6.2 (5-15) MEQ/L BUN 27 H (7-17) mg/dL Creatinine 1.14 H (0.52-1.04) mg/dL Estimated GFR 55.8 ML/MIN Glucose 134 H (74-106) mg/dL POC Glucometer 127 H (74 to 106) mg/dL Calcium 8.0 L (8.4-10.2) mg/dL Total Bilirubin 0.30 (0.2-1.3) mg/dL AST 16 (14-36) U/L ALT 9 (0-35) U/L Alkaline Phosphatase 60 (38-126) U/L Serum Total Protein 5.8 L (6.3-8.2) g/dL Albumin 2.7 L (3.5-5.0) g/dL Slides for Path Review YES Radiology Exams: Radiology Procedures Category Date Time Status ARTERIAL BILAT LOWER EXTREMITY [US] Routine Exams 09/27/23 15:06 Completed ECHO W/2D AND DOPPLER [US] Routine Exams 09/27/23 08:00 Taken VENOUS BILATERAL EXTREMITY [US] Urgent Exams 09/26/23 15:45 Completed Multi-Disciplinary Progress Notes: Multi-Disciplinary Progress Notes 09/28/23 13:05 Respiratory Note by Kaylyn Ventura PT'S O2 SAT ON ROOM AIR WHILE AT REST WAS 93%. PT'S O2 SAT ON ROOM AIR WHILE WALKING WAS 82%. PT PLACED BACK ON 2LPM VIA NASAL CANNULA AND O2 SAT QUICKLY INCREASED TO 92%. Addendum entered by Kaylyn Ventura 09/28/23 13:51: CLARIFICATION: PT ONLY PIVOTED TO THE COMMODE. Initialized on 09/28/23 13:05 - END OF NOTE Assessment/Plan (1) COPD exacerbation Current Visit: Yes Status: Acute Assessment & Plan: - krys Alvarado, steriods - 5lNC 97% - BL RA, reports she has had home O2 in the past at home 09/27 - 4LNC 09/28 - RT eval for home O2 needs- she did qualify for home O2 - rehab placement- case management - azithromycin, steroids - 3LNC- 93% Code(s): J44.1 - CHRONIC OBSTRUCTIVE PULMONARY DISEASE W (ACUTE) EXACERBATION (2) Acute hypoxic respiratory failure Current Visit: Yes Status: Acute Assessment & Plan: - on 5LNC - chest XR 09/26 Portable apical lordotic chest demonstrates new cardiomegaly obscuring left mid to lower lung. Remaining visualized lungs are inflated and clear. Bony thorax intact 09/27 - 4lNC 09/28 - 3lNC - CPAP at night Code(s): J96.01 - ACUTE RESPIRATORY FAILURE WITH HYPOXIA (3) Candidiasis Current Visit: Yes Status: Acute Assessment & Plan: - under BL breast and abd skin folds - nystatin powder - pillow cases under affected areas Code(s): B37.9 - CANDIDIASIS, UNSPECIFIED (4) Wounds, multiple Current Visit: Yes Status: Acute Assessment & Plan: - multiple wounds in various stages of healing on body- see pics in chart - perineal and sacral wounds- rogers placed, pt incontinent - Podiatry consulted for right foot wound - plan is for I& D tomorrow of right heal wound in OR - NPO at midnight - Narcotic pain control 09/27 - I& D scheduled for today with podiatry - arterial US 09/27 Impression: Limited exam due to patient body habitus. Nonvisualization left/right deep femoral and left posterior tibial arteries. Scattered arteriosclerotic disease bilaterally without critical stenosis/obstruction. - VD BLLE 09/27 Impression: Again Limited exam due to body habitus. Left and right legs again grossly negative for DVT. 09/28 - BL legs and feet wrapped by podiatry - POD #1 I&D right foot wound - F/u with podiatry OP - weight bearing as tolerated - Keflex sent to pharmacy - wounds improving - rogers removed Code(s): T07.XXXA - UNSPECIFIED MULTIPLE INJURIES, INITIAL ENCOUNTER (5) Restless legs Current Visit: Yes Status: Chronic Assessment & Plan: - continue ropinirole (6) DM type 2 (diabetes mellitus, type 2) Current Visit: Yes Status: Chronic Assessment & Plan: - A1C pending - accuchecks ac/hs - does not take any medication at home - Const carb diet - Humalog s/s 09/27 - A1C 5.23- controlled (7) Morbid obesity Current Visit: No Status: Chronic Assessment & Plan: - advised diet and exercise control Code(s): E66.01 - MORBID (SEVERE) OBESITY DUE TO EXCESS CALORIES (8) Cardiomegaly Current Visit: Yes Status: Acute Assessment & Plan: - seen on CXR and new - Echo- EJ per microbiology technologist 51% - Will need Op cardiology f/u Code(s): I51.7 - CARDIOMEGALY (9) LISETTE (acute kidney injury) Current Visit: Yes Status: Acute Assessment & Plan: - Creat 1.14, baseline 0.97 - IVF - Levaquin stopped Code(s): N17.9 - ACUTE KIDNEY FAILURE, UNSPECIFIED (10) Foul smelling urine Current Visit: Yes Status: Acute Assessment & Plan: - UA with C&S - D/C rogers Code(s): R82.90 - UNSPECIFIED ABNORMAL FINDINGS IN URINE (11) Bacterial vaginosis Current Visit: Yes Status: Acute Assessment & Plan: - metronidazole started Code(s): N76.0 - ACUTE VAGINITIS; B96.89 - OTH BACTERIAL AGENTS THE CAUSE OF DISEASES CLASSD [id number] (12) Physical deconditioning Current Visit: Yes Status: Acute Assessment & Plan: - pt was sitting on the bedside commode and unable to get up, several people had to assist to get her back in bed. - PT/OT - Rehab placement VTE: SCD's PPI: protonix Next of Kin: Ellis Shaw [phone] Code status: Full D/c plan: tomorrow Code(s): R53.81 - OTHER MALAISE
[2023-09-28] MEDS: VENTOLIN COMMON CANISTER IH PRN (19:25)
[2023-09-28] MEDS: DELTASONE 20 MG PO SCH (22:10)
[2023-09-29 08:07] LABS: Hematocrit 32.2 % (35-47); Mean Corpuscular Hemoglobin 25.4 pg (26-32); Mean Platelet Volume 9.7 fL (7.5-11.0); Platelet Count 193 x10^3/uL (150-450); Red Blood Count 3.54 x10^6/uL (4.1-5.4); Red Cell Distribution Width 16.3 % (11.5-14.0); White Blood Count 4.5 x10^3/uL (4.0-10.5)
[2023-09-29] MEDS: ATARAX 25 MG PO PRN (08:08)
[2023-09-29 08:26] LABS: ANION GAP 8.4 MEQ/L (5-15); BILIRUBIN,TOTAL 0.3 mg/dL (0.2-1.3); Calcium 7.9 mg/dL (8.4-10.2); Creatinine 1 1.3 mg/dL (0.52-1.04); EST GLOMERULAR FILTRATION RATE 47.7 ML/MIN; Potassium 4.1 mmol/L (3.5-5.1); Total Protein 6.1 g/dL (6.3-8.2)
[2023-09-29] MEDS: Zithromax 250 MG TABLET PO SCH (09:25)
--- NOTE | 2023-09-29 13:41 | PCM.NOTE ---
Date and Time: 09/29/23 1335 Subjective Assessment: 09/26/23 is a 58 year old female with PMHX of morbid obesity, oxygen use at home, type II DM, COPD, HTN, hyperlipidemia, CHF, migraines, PE, OA, and peripheral neuropathy. She was brought in the ER from primary care office with hypoxia and increasing shortness of breath. Patient reports she has been feeling short of breath since July which gets worse with exertion and better with resting with some nonproductive cough and chest soreness at times. Patient oxygen saturation was dropping in the 80s, placed on 3 L oxygen and O2 increased to 92% in ER. Patient denies fever or chills. Patient was originally at primary care office for right heel ulcer which is nonhealing. Denies any fall or trauma. She has multiple sores on her body including, BL legs, BL feet, and buttock. She appears to have a yeast infection under BL breast and abd folds. These areas are also excoriated. Pillow cases have been placed to aide with healing. Podiatry consulted and arterial duplex ordered. She is concerned if she has medicade or not ad this is her reason for not f/u with her care sooner. Case management to discuss with pt. She states she used to go to [facility] for her depression and has not been since February. She would like to go back if possible. She denies suicidal or homicidal thoughts at this time. She is currently on 5LNC. Levaquin, steroids, and duonebs started in the ER for COPD exacerbation, will continue same plan of care. She is c/o pain of right heal 03/22. Patterns has worked well for her in the past. She denies CP, abd pain, N/V/D. 09/27/23 Pt resting in bed. She explains she has been anxious all night about the foot procedure. She is concerned as she may not be able to have anesthesia. She is worried that if she is not asleep she may have a lot of pain and cannot handle this. Advised her to discuss her concerns with podiatry today. She explains her mouth is extremely dry and Biotene addeded to med list. Labs do show some LISETTE today and IVF started, She is on 4LNC, lungs sounds are clear. She denies CP, SOB, abd. pain, N/V/D. 09/28/23 Pt resting in bed. Podiatry is ok with d/c and f/u OP. She did have an I&D procedure yesterday. BL legs and feet wrapped. She is to be weight bearing as tolerated. Per podiatry will need to d/c on Keflex. Ramachandran Urine appears dark, UC with C&S sent. Per nurse urine is foul smelling. Ramachandran removed and pt got up to bed side commode and was unable to get up. It took several people to get her back in bed. Case management discussed with pt and she is willing to go to rehab. She is psychologically stable but frustrated with deconditioning. She is c/o vaginal fishy odor, metronidazole started for vaginosis. Will continue IVF for LISETTE. Continue steroids and antibiotics for COPD exacerbation. She denies CP, SOB, Abd. pain, N/V/D. 09/29/23 Pt resting in bed. She is awaiting rehab placement. She is feeling and breathing has improved. UC pending. Wound culture came back gram positive, sensitivity pending. She denies any further concerns at this time. - Review of Systems Constitutional: No Fever, No Chills Eyes: No Symptoms Ears, Nose, & Throat: No Symptoms Respiratory: No Cough, No Short Of Breath Cardiac: No Chest Pain, No Edema, No Syncope Abdominal/Gastrointestinal: No Abdominal Pain, No Nausea, No Vomiting, No Diarrhea Genitourinary Symptoms: No Dysuria Musculoskeletal: No Back Pain, No Neck Pain Skin: No Rash Neurological: No Dizziness, No Focal Weakness, No Sensory Changes Psychological: No Symptoms Endocrine: No Symptoms Hematologic/Lymphatic: No Symptoms Immunological/Allergic: No Symptoms Objective Exam General Appearance: no apparent distress, alert, obese Neurologic Exam: alert, oriented x 3, cooperative, normal mood/affect, nml cerebellar function, sensation nml, No motor deficits Skin Exam: normal color, warm, dry Wound Assessment: Skin/Wound Assessment Wound/Incision Assessment Start: 09/26/23 16:14 Text: Status: Active Freq: Q6H Protocol: Document 09/29/23 08:00 TC (Rec: 09/29/23 10:16 TC [id number]) Wound/Incision Assessment Right Coccyx Wound Assessment Shift Assessment Wound Type Pressure Ulcer Wound Stage Stage II Drainage Amount None Drainage Odor None/Absent Comment apply barrier cream, pillows for repositioning Left Coccyx Wound Assessment Shift Assessment Wound Type Pressure Ulcer Wound Stage Stage II Drainage Amount None Drainage Odor None/Absent General Appearance Open to air Comment apply barrier cream, pillows for repositioning Left Foot Wound Assessment Shift Assessment Wound Type Pressure Ulcer Dressing Status Dry & Intact Comment dressing cdi Right Foot Wound Assessment Shift Assessment Wound Type DIABETIC ULCER Dressing Status Dry & Intact Comment dressing cdi Left Posterior Thigh Wound Assessment Shift Assessment Wound Type SEE COMMENT BELOW Comment apply barrier cream, pillows for repositioning Right Posterior Thigh Wound Assessment Shift Assessment Wound Type Pressure Ulcer Wound Stage Stage III Comment apply barrier cream, pillows for repositioning Medial Other Wound Assessment Shift Assessment Wound Type REDNESS/EXCORIATION Wound Stage Non Pressure Wound Comment redness and excoriation to folds Wound Photo Photo Taken No Comment: Photos taken on admission, and on previous shift. Eye Exam: PERRL, EOMI, eyes nml inspection Ears, Nose, Throat Exam: normal ENT inspection, pharynx normal, moist mucous membranes Neck Exam: normal inspection, non-tender, supple, full range of motion Respiratory Exam: normal breath sounds, lungs clear, No respiratory distress Cardiovascular Exam: regular rate/rhythm, normal heart sounds Gastrointestinal/Abdomen Exam: soft, No tenderness, No mass Extremity Exam: normal inspection, normal range of motion Back Exam: normal inspection, normal range of motion, No CVA tenderness, No vertebral tenderness Pelvic Exam: deferred Rectal Exam: deferred OBJECTIVE DATA Vital Signs: Vital Signs - 24 hr Temp Pulse Resp BP Pulse Ox 09/29/23 09:23 113/61 09/29/23 07:49 98.0 F 53 L 16 102/50 99 09/29/23 04:00 97.6 F 57 L 20 128/60 96 09/28/23 23:54 97.8 F 62 20 121/59 99 09/28/23 19:43 97.0 F 60 19 113/56 99 09/28/23 19:28 69 20 99 09/28/23 16:00 97.1 F 60 18 102/51 99 Pain Assessment - Last Documented Pain Intensity 0 Pain Scale Used 0-10 Pain Scale Intake and Output: Intake & Output 09/27/23 09/28/23 09/29/23 09/30/23 11:59 11:59 11:59 11:59 Intake Total 5990 041 6947 Output Total 750 275 500 Balance 4276 341 0084 Weight 214.8 kg Lab Results: Lab Results-Last 24 Hours 09/28/23 09/28/23 09/29/23 Range/Units 16:26 20:41 07:10 WBC 4.5 (4.0-10.5) x10^3/uL RBC 3.54 L (4.1-5.4) x10^6/uL Hgb 9.0 L (12.0-16.0) g/dL Hct 32.2 L (35-47) % MCV 91.0 (78-100) fL MCH 25.4 L (26-32) pg MCHC 28.0 L (32-36) g/dL RDW 16.3 H (11.5-14.0) % Plt Count 193 (150-450) x10^3/uL MPV 9.7 (7.5-11.0) fL Sodium (137-145) mmol/L Potassium (3.5-5.1) mmol/L Chloride (98-107) mmol/L Carbon Dioxide (22-30) mmol/L Anion Gap (5-15) MEQ/L BUN (7-17) mg/dL Creatinine (0.52-1.04) mg/dL Estimated GFR ML/MIN Glucose (74-106) mg/dL POC Glucometer 133 H 129 H (74 to 106) mg/dL Calcium (8.4-10.2) mg/dL Total Bilirubin (0.2-1.3) mg/dL AST (14-36) U/L ALT (0-35) U/L Alkaline Phosphatase (38-126) U/L Serum Total Protein (6.3-8.2) g/dL Albumin (3.5-5.0) g/dL 09/29/23 09/29/23 09/29/23 Range/Units 07:10 07:25 11:54 WBC (4.0-10.5) x10^3/uL RBC (4.1-5.4) x10^6/uL Hgb (12.0-16.0) g/dL Hct (35-47) % MCV (78-100) fL MCH (26-32) pg MCHC (32-36) g/dL RDW (11.5-14.0) % Plt Count (150-450) x10^3/uL MPV (7.5-11.0) fL Sodium 137 (137-145) mmol/L Potassium 4.1 (3.5-5.1) mmol/L Chloride 102 (98-107) mmol/L Carbon Dioxide 31 H (22-30) mmol/L Anion Gap 8.4 (5-15) MEQ/L BUN 32 H (7-17) mg/dL Creatinine 1.30 H (0.52-1.04) mg/dL Estimated GFR 47.7 ML/MIN Glucose 122 H (74-106) mg/dL POC Glucometer 95 168 H (74 to 106) mg/dL Calcium 7.9 L (8.4-10.2) mg/dL Total Bilirubin 0.30 (0.2-1.3) mg/dL AST 17 (14-36) U/L ALT 10 (0-35) U/L Alkaline Phosphatase 58 (38-126) U/L Serum Total Protein 6.1 L (6.3-8.2) g/dL Albumin 3.0 L (3.5-5.0) g/dL Radiology Exams: Radiology Procedures Category Date Time Status ARTERIAL BILAT LOWER EXTREMITY [US] Routine Exams 09/27/23 15:06 Completed Multi-Disciplinary Progress Notes: Multi-Disciplinary Progress Notes 09/28/23 15:00 (created 09/28/23 21:08) Case Management Note by Jewels Pate PATIENT UNABLE TO CARE FOR HERSELF AT HOME AT THIS TIME. REQUIRED SEVERAL STAFF MEMBERS AND HARVINDER LIFT [place] [facility] [place]. PATIENT AGREEABLE FOR REHAB STAY FOR STRENGTHENING PRIOR TO RETURNING HOME. CALLED SEVERAL FACILITIES. [facility] AND [facility]ONE[facility] UNABLE TO ACCOMMODATE PATIENT'S WEIGHT. REFERRAL FAXED TO [facility]. PATIENT AGREEABLE TO THIS FACILITY AND THEY CAN ACCOMMODATE HER WEIGHT. THEY WILL HAVE TO ORDER A BARIATRIC BED AND IT MAY BE SUNDAY BEFORE THEY GET EQUIPMENT. PATIENT NOTIFIED AND AGREEABLE TO PLAN. Initialized on 09/28/23 21:08 - END OF NOTE 09/28/23 14:48 Case Management Note by Jewels Pate PAPERWORK INITIATED- QUEUED FOR REVIEW Initialized on 09/28/23 14:48 - END OF NOTE Assessment/Plan (1) COPD exacerbation Current Visit: Yes Status: Acute Code(s): J44.1 - CHRONIC OBSTRUCTIVE PULMONARY DISEASE W (ACUTE) EXACERBATION (2) Acute hypoxic respiratory failure Current Visit: Yes Status: Acute Code(s): J96.01 - ACUTE RESPIRATORY FAILURE WITH HYPOXIA (3) Candidiasis Current Visit: Yes Status: Acute Code(s): B37.9 - CANDIDIASIS, UNSPECIFIED (4) Wounds, multiple Current Visit: Yes Status: Acute Code(s): T07.XXXA - UNSPECIFIED MULTIPLE INJURIES, INITIAL ENCOUNTER (5) Restless legs Current Visit: Yes Status: Chronic (6) DM type 2 (diabetes mellitus, type 2) Current Visit: Yes Status: Chronic (7) Morbid obesity Current Visit: No Status: Chronic Code(s): E66.01 - MORBID (SEVERE) OBESITY DUE TO EXCESS CALORIES (8) Cardiomegaly Current Visit: Yes Status: Acute Code(s): I51.7 - CARDIOMEGALY (9) LISETTE (acute kidney injury) Current Visit: Yes Status: Acute Code(s): N17.9 - ACUTE KIDNEY FAILURE, UNSPECIFIED (10) Foul smelling urine Current Visit: Yes Status: Acute Code(s): R82.90 - UNSPECIFIED ABNORMAL FINDINGS IN URINE (11) Bacterial vaginosis Current Visit: Yes Status: Acute Code(s): N76.0 - ACUTE VAGINITIS; B96.89 - OTH BACTERIAL AGENTS THE CAUSE OF DISEASES CLASSD ELSWHR (12) Physical deconditioning Current Visit: Yes Status: Acute Assessment & Plan: (1) COPD exacerbation Current Visit: Yes Status: Acute Assessment & Plan: - krys Alvarado, melva - 5lNC 97% - BL RA, reports she has had home O2 in the past at home 09/27 - 4LNC 09/28 - RT eval for home O2 needs- she did qualify for home O2 - rehab placement- case management - azithromycin, steroids - 3LNC- 93% 09/29 - 2lNC 99% - awaiting rehab Code(s): J44.1 - CHRONIC OBSTRUCTIVE PULMONARY DISEASE W (ACUTE) EXACERBATION (2) Acute hypoxic respiratory failure Current Visit: Yes Status: Acute Assessment & Plan: - on 5LNC - chest XR 09/26 Portable apical lordotic chest demonstrates new cardiomegaly obscuring left mid to lower lung. Remaining visualized lungs are inflated and clear. Bony thorax intact 09/27 - 4lNC 09/28 - 3lNC - CPAP at night Code(s): J96.01 - ACUTE RESPIRATORY FAILURE WITH HYPOXIA (3) Candidiasis Current Visit: Yes Status: Acute Assessment & Plan: - under BL breast and abd skin folds - nystatin powder - pillow cases under affected areas Code(s): B37.9 - CANDIDIASIS, UNSPECIFIED (4) Wounds, multiple Current Visit: Yes Status: Acute Assessment & Plan: - multiple wounds in various stages of healing on body- see pics in chart - perineal and sacral wounds- ramachandran placed, pt incontinent - Podiatry consulted for right foot wound - plan is for I& D tomorrow of right heal wound in OR - NPO at midnight - Narcotic pain control 09/27 - I& D scheduled for today with podiatry - arterial US 09/27 Impression: Limited exam due to patient body habitus. Nonvisualization left/right deep femoral and left posterior tibial arteries. Scattered arteriosclerotic disease bilaterally without critical stenosis/obstruction. - VD BLLE 09/27 Impression: Again Limited exam due to body habitus. Left and right legs again grossly negative for DVT. 09/28 - BL legs and feet wrapped by podiatry - POD #1 I&D right foot wound - F/u with podiatry OP - weight bearing as tolerated - Keflex sent to pharmacy - wounds improving - ramachandran removed 09/29 - Wound culture right foot gram +, continue keflex Code(s): T07.XXXA - UNSPECIFIED MULTIPLE INJURIES, INITIAL ENCOUNTER (5) Restless legs Current Visit: Yes Status: Chronic Assessment & Plan: - continue ropinirole (6) DM type 2 (diabetes mellitus, type 2) Current Visit: Yes Status: Chronic Assessment & Plan: - A1C pending - accuchecks ac/hs - does not take any medication at home - Const carb diet - Humalog s/s 09/27 - A1C 5.23- controlled (7) Morbid obesity Current Visit: No Status: Chronic Assessment & Plan: - advised diet and exercise control Code(s): E66.01 - MORBID (SEVERE) OBESITY DUE TO EXCESS CALORIES (8) Cardiomegaly Current Visit: Yes Status: Acute Assessment & Plan: - seen on CXR and new - Echo- EJ per lawn technician 51% - Will need Op cardiology f/u Code(s): I51.7 - CARDIOMEGALY (9) LISETTE (acute kidney injury) Current Visit: Yes Status: Acute Assessment & Plan: - Creat 1.14, baseline 0.97 - IVF - Levaquin stopped Code(s): N17.9 - ACUTE KIDNEY FAILURE, UNSPECIFIED (10) Foul smelling urine Current Visit: Yes Status: Acute Assessment & Plan: - UA with C&S - pending repeat UA - D/C ramachandran Code(s): R82.90 - UNSPECIFIED ABNORMAL FINDINGS IN URINE (11) Bacterial vaginosis Current Visit: Yes Status: Acute Assessment & Plan: - metronidazole started Code(s): N76.0 - ACUTE VAGINITIS; B96.89 - OTH BACTERIAL AGENTS THE CAUSE OF DISEASES CLASSD ELSWHR (12) Physical deconditioning Current Visit: Yes Status: Acute Assessment & Plan: - pt was sitting on the bedside commode and unable to get up, several people had to assist to get her back in bed. - PT/OT - Rehab placement VTE: SCD's PPI: protonix Next of Kin: Ellis Shaw [phone] Code status: Full D/c plan: tomorrow Code(s): R53.81 - OTHER MALAISE
[2023-09-30 06:27] LABS: Hematocrit 32.1 % (35-47); Mean Cell Volume 90.2 fL (78-100); Mean Corpuscular Hemoglobin 25.3 pg (26-32); Mean Platelet Volume 10.3 fL (7.5-11.0); Platelet Count 199 x10^3/uL (150-450); Red Blood Count 3.56 x10^6/uL (4.1-5.4); Red Cell Distribution Width 16.2 % (11.5-14.0); White Blood Count 4.7 x10^3/uL (4.0-10.5)
[2023-09-30 06:48] LABS: ALBUMIN 3.2 g/dL (3.5-5.0); ANION GAP 8.7 MEQ/L (5-15); BILIRUBIN,TOTAL 0.4 mg/dL (0.2-1.3); Calcium 8.1 mg/dL (8.4-10.2); Creatinine 1 1.34 mg/dL (0.52-1.04); Potassium 4.5 mmol/L (3.5-5.1); Total Protein 6.4 g/dL (6.3-8.2)
[2023-09-30 08:08] LABS: Slide Review YES
--- NOTE | 2023-09-30 10:50 | PCM.NOTE ---
Date and Time: 09/30/23 1039 Subjective Assessment: 09/26/23 is a 58 year old female with PMHX of morbid obesity, oxygen use at home, type II DM, COPD, HTN, hyperlipidemia, CHF, migraines, PE, OA, and peripheral neuropathy. She was brought in the ER from primary care office with hypoxia and increasing shortness of breath. Patient reports she has been feeling short of breath since July which gets worse with exertion and better with resting with some nonproductive cough and chest soreness at times. Patient oxygen saturation was dropping in the 80s, placed on 3 L oxygen and O2 increased to 92% in ER. Patient denies fever or chills. Patient was originally at primary care office for right heel ulcer which is nonhealing. Denies any fall or trauma. She has multiple sores on her body including, BL legs, BL feet, and buttock. She appears to have a yeast infection under BL breast and abd folds. These areas are also excoriated. Pillow cases have been placed to aide with healing. Podiatry consulted and arterial duplex ordered. She is concerned if she has medicade or not ad this is her reason for not f/u with her care sooner. Case management to discuss with pt. She states she used to go to [facility] for her depression and has not been since February. She would like to go back if possible. She denies suicidal or homicidal thoughts at this time. She is currently on 5LNC. Levaquin, steroids, and duonebs started in the ER for COPD exacerbation, will continue same plan of care. She is c/o pain of right heal 03/22. AppGrat[employer] has worked well for her in the past. She denies CP, abd pain, N/V/D. 09/27/23 Pt resting in bed. She explains she has been anxious all night about the foot procedure. She is concerned as she may not be able to have anesthesia. She is worried that if she is not asleep she may have a lot of pain and cannot handle this. Advised her to discuss her concerns with podiatry today. She explains her mouth is extremely dry and Biotene addeded to med list. Labs do show some LISETTE today and IVF started, She is on 4LNC, lungs sounds are clear. She denies CP, SOB, abd. pain, N/V/D. 09/28/23 Pt resting in bed. Podiatry is ok with d/c and f/u OP. She did have an I&D procedure yesterday. BL legs and feet wrapped. She is to be weight bearing as tolerated. Per podiatry will need to d/c on Keflex. Ramachandran Urine appears dark, UC with C&S sent. Per nurse urine is foul smelling. Ramachandran removed and pt got up to bed side commode and was unable to get up. It took several people to get her back in bed. Case management discussed with pt and she is willing to go to rehab. She is psychologically stable but frustrated with deconditioning. She is c/o vaginal fishy odor, metronidazole started for vaginosis. Will continue IVF for LISETTE. Continue steroids and antibiotics for COPD exacerbation. She denies CP, SOB, Abd. pain, N/V/D. 09/29/23 Pt resting in bed. She is awaiting rehab placement. She is feeling and breathing has improved. UC pending. Wound culture came back gram positive, sensitivity pending. She denies any further concerns at this time. 09/30/23 Pt resting in bed on continued 4lNC. SOB has improved. LISETTE is a bit worse today. Stopped Meloxicam. Unable to check a post void bladder scan due to body habitus. Antibiotics changed to Zyvox per wound culture results. Can be on Bactrim at d/c per sensitivity. Will discuss with podiatry tomorrow. Pt awaiting rehab placement and most likely to d/c tomorrow. . She continue to have some right foot pain but pain medication helps to keep pain controlled. She denies any further concerns at this time. - Review of Systems Constitutional: Weakness, No Fever, No Chills Eyes: No Symptoms Ears, Nose, & Throat: No Symptoms Respiratory: No Cough, No Short Of Breath Cardiac: No Chest Pain, No Edema, No Syncope Abdominal/Gastrointestinal: No Abdominal Pain, No Nausea, No Vomiting, No Diarrhea Genitourinary Symptoms: No Dysuria Musculoskeletal: No Back Pain, No Neck Pain Skin: Other (right foot ulcer, bl legs wrapped), No Rash Neurological: No Dizziness, No Focal Weakness, No Sensory Changes Psychological: No Symptoms Endocrine: No Symptoms Hematologic/Lymphatic: No Symptoms Immunological/Allergic: No Symptoms Objective Exam General Appearance: no apparent distress, alert, obese Neurologic Exam: alert, oriented x 3, cooperative, normal mood/affect, nml cerebellar function, sensation nml, No motor deficits Skin Exam: normal color, warm, dry Wound Assessment: Skin/Wound Assessment Wound/Incision Assessment Start: 09/26/23 16:14 Text: Status: Active Freq: Q6H Protocol: Document 09/30/23 02:00 MP (Rec: 09/30/23 02:12 MP [id number]) Wound/Incision Assessment Right Coccyx Wound Assessment Shift Assessment Wound Type Pressure Ulcer Wound Stage Stage II Drainage Amount None Drainage Odor None/Absent Comment apply barrier cream, pillows for repositioning Left Coccyx Wound Assessment Shift Assessment Wound Type Pressure Ulcer Wound Stage Stage II Drainage Amount None Drainage Odor None/Absent General Appearance Open to air Comment apply barrier cream, pillows for repositioning Left Foot Wound Assessment Shift Assessment Wound Type Pressure Ulcer Dressing Status Dry & Intact Comment dressing cdi Right Foot Wound Assessment Shift Assessment Wound Type DIABETIC ULCER Dressing Status Dry & Intact Comment dressing cdi Left Posterior Thigh Wound Assessment Shift Assessment Wound Type SEE COMMENT BELOW Comment apply barrier cream, pillows for repositioning Right Posterior Thigh Wound Assessment Shift Assessment Wound Type Pressure Ulcer Wound Stage Stage III Comment apply barrier cream, pillows for repositioning Medial Other Wound Assessment Shift Assessment Wound Type REDNESS/EXCORIATION Wound Stage Non Pressure Wound Comment redness and excoriation to folds, apply nystatin powder as orderered Wound Photo Photo Taken No Eye Exam: PERRL, EOMI, eyes nml inspection Ears, Nose, Throat Exam: normal ENT inspection, pharynx normal, moist mucous membranes Neck Exam: normal inspection, non-tender, supple, full range of motion Respiratory Exam: normal breath sounds, lungs clear, No respiratory distress Cardiovascular Exam: regular rate/rhythm, normal heart sounds Gastrointestinal/Abdomen Exam: soft, No tenderness, No mass Extremity Exam: normal inspection, normal range of motion, tenderness (right foot ulcer, bl legs wrapped) Back Exam: normal inspection, normal range of motion, No CVA tenderness, No vertebral tenderness Pelvic Exam: deferred Rectal Exam: deferred OBJECTIVE DATA Vital Signs: Vital Signs - 24 hr Temp Pulse Resp BP Pulse Ox 09/30/23 07:34 60 16 93 L 09/30/23 07:30 97.8 F 60 16 142/72 97 09/30/23 04:29 97.4 F 60 20 105/73 93 L 09/29/23 23:00 98.1 F 80 16 116/60 99 09/29/23 19:46 97.1 F 59 L 20 122/74 99 09/29/23 19:36 62 16 100 09/29/23 16:44 97.9 F 61 16 129/71 96 09/29/23 13:00 98.1 F 67 16 123/57 99 Pain Assessment - Last Documented Pain Intensity 4 Pain Scale Used 0-10 Pain Scale Intake and Output: Intake & Output 09/27/23 09/28/23 09/29/23 09/30/23 11:59 11:59 11:59 11:59 Intake Total 5601 626 4301 1580 Output Total 750 275 500 Balance 5657 577 8412 1580 Weight 214.8 kg Lab Results: Lab Results-Last 24 Hours 09/29/23 09/29/23 09/29/23 Range/Units 11:54 16:16 20:36 WBC (4.0-10.5) x10^3/uL RBC (4.1-5.4) x10^6/uL Hgb (12.0-16.0) g/dL Hct (35-47) % MCV (78-100) fL MCH (26-32) pg MCHC (32-36) g/dL RDW (11.5-14.0) % Plt Count (150-450) x10^3/uL MPV (7.5-11.0) fL Sodium (137-145) mmol/L Potassium (3.5-5.1) mmol/L Chloride (98-107) mmol/L Carbon Dioxide (22-30) mmol/L Anion Gap (5-15) MEQ/L BUN (7-17) mg/dL Creatinine (0.52-1.04) mg/dL Estimated GFR ML/MIN Glucose (74-106) mg/dL POC Glucometer 168 H 156 H 155 H (74 to 106) mg/dL Calcium (8.4-10.2) mg/dL Total Bilirubin (0.2-1.3) mg/dL AST (14-36) U/L ALT (0-35) U/L Alkaline Phosphatase (38-126) U/L Serum Total Protein (6.3-8.2) g/dL Albumin (3.5-5.0) g/dL Slides for Path Review 09/30/23 09/30/23 09/30/23 Range/Units 06:25 06:25 07:24 WBC 4.7 (4.0-10.5) x10^3/uL RBC 3.56 L (4.1-5.4) x10^6/uL Hgb 9.0 L (12.0-16.0) g/dL Hct 32.1 L (35-47) % MCV 90.2 (78-100) fL MCH 25.3 L (26-32) pg MCHC 28.0 L (32-36) g/dL RDW 16.2 H (11.5-14.0) % Plt Count 199 (150-450) x10^3/uL MPV 10.3 (7.5-11.0) fL Sodium 139 (137-145) mmol/L Potassium 4.5 (3.5-5.1) mmol/L Chloride 102 (98-107) mmol/L Carbon Dioxide 33 H (22-30) mmol/L Anion Gap 8.7 (5-15) MEQ/L BUN 35 H (7-17) mg/dL Creatinine 1.34 H (0.52-1.04) mg/dL Estimated GFR 46.0 ML/MIN Glucose 130 H (74-106) mg/dL POC Glucometer 127 H (74 to 106) mg/dL Calcium 8.1 L (8.4-10.2) mg/dL Total Bilirubin 0.40 (0.2-1.3) mg/dL AST 25 (14-36) U/L ALT 16 (0-35) U/L Alkaline Phosphatase 65 (38-126) U/L Serum Total Protein 6.4 (6.3-8.2) g/dL Albumin 3.2 L (3.5-5.0) g/dL Slides for Path Review YES Assessment/Plan (1) COPD exacerbation Current Visit: Yes Status: Acute Code(s): J44.1 - CHRONIC OBSTRUCTIVE PULMONARY DISEASE W (ACUTE) EXACERBATION (2) Acute hypoxic respiratory failure Current Visit: Yes Status: Acute Code(s): J96.01 - ACUTE RESPIRATORY FAILURE WITH HYPOXIA (3) Candidiasis Current Visit: Yes Status: Acute Code(s): B37.9 - CANDIDIASIS, UNSPECIFIED (4) Wounds, multiple Current Visit: Yes Status: Acute Code(s): T07.XXXA - UNSPECIFIED MULTIPLE INJURIES, INITIAL ENCOUNTER (5) Restless legs Current Visit: Yes Status: Chronic (6) DM type 2 (diabetes mellitus, type 2) Current Visit: Yes Status: Chronic (7) Morbid obesity Current Visit: No Status: Chronic Code(s): E66.01 - MORBID (SEVERE) OBESITY DUE TO EXCESS CALORIES (8) Cardiomegaly Current Visit: Yes Status: Acute Code(s): I51.7 - CARDIOMEGALY (9) LISETTE (acute kidney injury) Current Visit: Yes Status: Acute Code(s): N17.9 - ACUTE KIDNEY FAILURE, UNSPECIFIED (10) Foul smelling urine Current Visit: Yes Status: Acute Code(s): R82.90 - UNSPECIFIED ABNORMAL FINDINGS IN URINE (11) Bacterial vaginosis Current Visit: Yes Status: Acute Code(s): N76.0 - ACUTE VAGINITIS; B96.89 - OTH BACTERIAL AGENTS THE CAUSE OF DISEASES CLASSD ELSWHR (12) Physical deconditioning Current Visit: Yes Status: Acute Assessment & Plan: (1) COPD exacerbation - Levaqdion, krys, steriods - 5lNC 97% - BL RA, reports she has had home O2 in the past at home 09/27 - 4LNC 09/28 - RT eval for home O2 needs- she did qualify for home O2 - rehab placement- case management - azithromycin, steroids - 3LNC- 93% 09/29 - 2lNC 99% - awaiting rehab 09/30 - Stop azithromycin - 3LNC- 93% Code(s): J44.1 - CHRONIC OBSTRUCTIVE PULMONARY DISEASE W (ACUTE) EXACERBATION (2) Acute hypoxic respiratory failure Current Visit: Yes Status: Acute Assessment & Plan: - on 5LNC - chest XR 09/26 Portable apical lordotic chest demonstrates new cardiomegaly obscuring left mid to lower lung. Remaining visualized lungs are inflated and clear. Bony thorax intact 09/27 - 4lNC 09/28 - 3lNC - CPAP at night Code(s): J96.01 - ACUTE RESPIRATORY FAILURE WITH HYPOXIA (3) Candidiasis Current Visit: Yes Status: Acute Assessment & Plan: - under BL breast and abd skin folds - nystatin powder - pillow cases under affected areas Code(s): B37.9 - CANDIDIASIS, UNSPECIFIED (4) Wounds, multiple Current Visit: Yes Status: Acute Assessment & Plan: - multiple wounds in various stages of healing on body- see pics in chart - perineal and sacral wounds- ramachandran placed, pt incontinent - Podiatry consulted for right foot wound - plan is for I& D tomorrow of right heal wound in OR - NPO at midnight - Narcotic pain control 09/27 - I& D scheduled for today with podiatry - arterial US 09/27 Impression: Limited exam due to patient body habitus. Nonvisualization left/right deep femoral and left posterior tibial arteries. Scattered arteriosclerotic disease bilaterally without critical stenosis/obstruction. - VD BLLE 09/27 Impression: Again Limited exam due to body habitus. Left and right legs again grossly negative for DVT. 09/28 - BL legs and feet wrapped by podiatry - POD #1 I&D right foot wound - F/u with podiatry OP - weight bearing as tolerated - Keflex sent to pharmacy - wounds improving - ramachandran removed 09/29 - POD #3 - Wound culture right foot gram +, Staphyloccous simulans - Zyvox started - possibly d/c on bactrim per culture results- will discuss with podiatry tomorrow. Code(s): T07.XXXA - UNSPECIFIED MULTIPLE INJURIES, INITIAL ENCOUNTER (5) Restless legs Current Visit: Yes Status: Chronic Assessment & Plan: - continue ropinirole (6) DM type 2 (diabetes mellitus, type 2) Current Visit: Yes Status: Chronic Assessment & Plan: - A1C pending - accuchecks ac/hs - does not take any medication at home - Const carb diet - Humalog s/s 09/27 - A1C 5.23- controlled (7) Morbid obesity Current Visit: No Status: Chronic Assessment & Plan: - advised diet and exercise control Code(s): E66.01 - MORBID (SEVERE) OBESITY DUE TO EXCESS CALORIES (8) Cardiomegaly Current Visit: Yes Status: Acute Assessment & Plan: - seen on CXR and new - Echo- EJ per lead radiologic technologist 51% - Will need Op cardiology f/u Code(s): I51.7 - CARDIOMEGALY (9) LISETTE (acute kidney injury) Current Visit: Yes Status: Acute Assessment & Plan: - Creat 1.14, baseline 0.97 - IVF - Levaquin stopped 09/30 - LISETTE worse Creat 1.34, baseline normal -stopped meloxicam, stopped antibiotics and changed to zyvox - unable to obtain post void bladder scan Code(s): N17.9 - ACUTE KIDNEY FAILURE, UNSPECIFIED (10) Foul smelling urine Current Visit: Yes Status: Acute Assessment & Plan: - UA with C&S -negative - D/C ramachandran 09/30 - repeat UA pending Code(s): R82.90 - UNSPECIFIED ABNORMAL FINDINGS IN URINE (11) Bacterial vaginosis Current Visit: Yes Status: Acute Assessment & Plan: - metronidazole started Code(s): N76.0 - ACUTE VAGINITIS; B96.89 - OTH BACTERIAL AGENTS THE CAUSE OF DISEASES CLASSD ELSWHR (12) Physical deconditioning Current Visit: Yes Status: Acute Assessment & Plan: - pt was sitting on the bedside commode and unable to get up, several people had to assist to get her back in bed. - PT/OT - Rehab placement VTE: [facility]CD's PPI: protonix Next of Kin: Ellis Shaw [phone] Code status: Full D/c plan: tomorrow Code(s): R53.81 - OTHER MALAISE
[2023-09-30] MEDS: Zyvox 600 MG IV PREMIX*** 300 ML IV SCH (11:06)
[2023-10-01 10:24] LABS: ALBUMIN 3.2 g/dL (3.5-5.0); ANION GAP 6.2 MEQ/L (5-15); BILIRUBIN,TOTAL 0.5 mg/dL (0.2-1.3); Calcium 8.1 mg/dL (8.4-10.2); Creatinine 1 1.07 mg/dL (0.52-1.04); EST GLOMERULAR FILTRATION RATE 60.2 ML/MIN; Potassium 4.7 mmol/L (3.5-5.1); Total Protein 6.4 g/dL (6.3-8.2)
[2023-10-01 12:25] LABS: Hematocrit 35.3 % (35-47); Hemoglobin 9.7 g/dL (12.0-16.0); Mean Cell Volume 90.7 fL (78-100); Mean Corpuscular Hemoglobin 24.9 pg (26-32); Mean Corpuscular Hgb Concent. 27.5 g/dL (32-36); Mean Platelet Volume 9.7 fL (7.5-11.0); Platelet Count 170 x10^3/uL (150-450); Red Blood Count 3.89 x10^6/uL (4.1-5.4); Red Cell Distribution Width 16.1 % (11.5-14.0); White Blood Count 8.5 x10^3/uL (4.0-10.5)
--- NOTE | 2023-10-01 12:55 | PCM.DS ---
Discharge Summary Date of Admission: 09/27/23 10:00 Date of Discharge: 10/01/23 Admitting Physician: NICK CALL MD Consults: Consults on Case 09/26/23 15:01 Consult Podiatry ROUTINE 09/26/23 16:14 Case Management SDOH DC Needs Assessment ROUTINE 09/27/23 10:40 Nutritional Consult ROUTINE Primary Care Provider: JOLEEN BECKER Allergies Allergies albuterol Allergy (Intermediate, Verified 11/04/15 09:13) Difficulty Breathing adhesive Allergy (Verified 04/28/15 22:26) codeine [Codeine] Allergy (Verified 04/28/15 22:26) Headache INCREASE HTN latex Allergy (Verified 04/28/15 22:26) Penicillins Allergy (Verified 04/28/15 22:26) Nausea and Vomiting SWELLING pineapple [Pineapple] Allergy (Verified 04/28/15 22:26) vancomycin Adverse Reaction (Mild, Verified 11/07/15 17:40) Itching Hospital Summary - Hospital Course Hospital Course: 09/26/23 is a 58 year old female with PMHX of morbid obesity, oxygen use at home, type II DM, COPD, HTN, hyperlipidemia, CHF, migraines, PE, OA, and peripheral neuropathy. She was brought in the ER from primary care office with h ypoxia and increasing shortness of breath. Patient reports she has been feeling short of breath since July which gets worse with exertion and better with resting with some nonproductive cough and chest soreness at times. Patient oxygen saturation was dropping in the 80s, placed on 3 L oxygen and O2 increased to 92% in ER. Patient denies fever or chills. Patient was originally at primary care office for right heel ulcer which is nonhealing. Denies any fall or trauma. She has multiple sores on her body including, BL legs, BL feet, and buttock. She appears to have a yeast infection under BL breast and abd folds. These areas are also excoriated. Pillow cases have been placed to aide with healing. Podiatry consulted and arterial duplex ordered. She is concerned if she has medicade or not ad this is her reason for not f/u with her care sooner. Case management to discuss with pt. She states she used to go to [facility] for her depression and has not been since February. She would like to go back if possible. She denies suicidal or homicidal thoughts at this time. She is currently on 5LNC. Levaquin, steroids, and duonebs started in the ER for COPD exacerbation, will continue same plan of care. She is c/o pain of right heal 03/22. [employer] has worked well for her in the past. She denies CP, abd pain, N/V/D. 09/27/23 Pt resting in bed. She explains she has been anxious all night about the foot procedure. She is concerned as she may not be able to have anesthesia. She is worried that if she is not asleep she may have a lot of pain and cannot handle this. Advised her to discuss her concerns with podiatry today. She explains her mouth is extremely dry and Biotene addeded to med list. Labs do show some LISETTE today and IVF started, She is on 4LNC, lungs sounds are clear. She denies CP, SOB, abd. pain, N/V/D. 09/28/23 Pt resting in bed. Podiatry is ok with d/c and f/u OP. She did have an I&D procedure yesterday. BL legs and feet wrapped. She is to be weight bearing as tolerated. Per podiatry will need to d/c on Keflex. Ramachandran Urine appears dark, UC with C&S sent. Per nurse urine is foul smelling. Ramachandran removed and pt got up to bed side commode and was unable to get up. It took several people to get her back in bed. Case management discussed with pt and she is willing to go to rehab. She is psychologically stable but frustrated with deconditioning. She is c/o vaginal fishy odor, metronidazole started for vaginosis. Will continue IVF for LISETTE. Continue steroids and antibiotics for COPD exacerbation. She denies CP, SOB, Abd. pain, N/V/D. 09/29/23 Pt resting in bed. She is awaiting rehab placement. She is feeling and breathing has improved. UC pending. Wound culture came back gram positive, sensitivity pending. She denies any further concerns at this time. 09/30/23 Pt resting in bed on continued 4lNC. SOB has improved. LISETTE is a bit worse today. Stopped Meloxicam. Unable to check a post void bladder scan due to body habitus. Antibiotics changed to Zyvox per wound culture results. Can be on Bactrim at d/c per sensitivity. Will discuss with podiatry tomorrow. Pt awaiting rehab placement and most likely to d/c tomorrow. . She continue to have some right foot pain but pain medication helps to keep pain controlled. She denies any further concerns at this time. 10/01 Pt is resting in bed. She explains she feels rather out of it today. Her labs have improved overall, LISETTE - improved. Rehab is ready and she will d/c today. Podiatry aware of blood cultures and changed medications to d/c with. Rehab to [facility] for home O2 needs 2:2 chronic COPD. Pt denies any further concerns at this time. - Vitals & Intake/Output Vital Signs: Vital Signs Temperature 97.6 F 10/01/23 12:00 Pulse Rate 64 10/01/23 12:00 Respiratory Rate 18 10/01/23 12:00 Blood Pressure 154/86 10/01/23 12:00 O2 Sat by Pulse Oximetry 97 10/01/23 12:00 Intake & Output: Intake & Output 09/29/23 09/30/23 10/01/23 10/02/23 11:59 11:59 11:59 11:59 Intake Total 3329 1580 5723 Output Total 500 Balance 2829 1580 5723 - Lab Result Diagrams: 10/01/23 09:48 10/01/23 09:48 Lab Results-Last 24 Hrs: Lab Results-Last 24 Hours 09/30/23 09/30/23 10/01/23 Range/Units 16:18 20:45 07:56 WBC (4.0-10.5) x10^3/uL RBC (4.1-5.4) x10^6/uL Hgb (12.0-16.0) g/dL Hct (35-47) % MCV (78-100) fL MCH (26-32) pg MCHC (32-36) g/dL RDW (11.5-14.0) % Plt Count (150-450) x10^3/uL MPV (7.5-11.0) fL Sodium (137-145) mmol/L Potassium (3.5-5.1) mmol/L Chloride (98-107) mmol/L Carbon Dioxide (22-30) mmol/L Anion Gap (5-15) MEQ/L BUN (7-17) mg/dL Creatinine (0.52-1.04) mg/dL Estimated GFR ML/MIN Glucose (74-106) mg/dL POC Glucometer 180 H 273 H 122 H (74 to 106) mg/dL Calcium (8.4-10.2) mg/dL Total Bilirubin (0.2-1.3) mg/dL AST (14-36) U/L ALT (0-35) U/L Alkaline Phosphatase (38-126) U/L Serum Total Protein (6.3-8.2) g/dL Albumin (3.5-5.0) g/dL 10/01/23 10/01/23 10/01/23 Range/Units 09:48 09:48 11:44 WBC 8.5 (4.0-10.5) x10^3/uL RBC 3.89 L (4.1-5.4) x10^6/uL Hgb 9.7 L (12.0-16.0) g/dL Hct 35.3 (35-47) % MCV 90.7 (78-100) fL MCH 24.9 L (26-32) pg MCHC 27.5 L (32-36) g/dL RDW 16.1 H (11.5-14.0) % Plt Count 170 (150-450) x10^3/uL MPV 9.7 (7.5-11.0) fL Sodium 138 (137-145) mmol/L Potassium 4.7 (3.5-5.1) mmol/L Chloride 104 (98-107) mmol/L Carbon Dioxide 32 H (22-30) mmol/L Anion Gap 6.2 (5-15) MEQ/L BUN 34 H (7-17) mg/dL Creatinine 1.07 H (0.52-1.04) mg/dL Estimated GFR 60.2 ML/MIN Glucose 123 H (74-106) mg/dL POC Glucometer 143 H (74 to 106) mg/dL Calcium 8.1 L (8.4-10.2) mg/dL Total Bilirubin 0.50 (0.2-1.3) mg/dL AST 30 (14-36) U/L ALT 30 (0-35) U/L Alkaline Phosphatase 65 (38-126) U/L Serum Total Protein 6.4 (6.3-8.2) g/dL Albumin 3.2 L (3.5-5.0) g/dL Micro Results-Entire Visit: Microbiology 09/26/23 11:38 Blood Culture - Final Blood 09/26/23 16:43 Wound Culture - Final Heel - Right Staphylococcus Simulans 09/26/23 19:20 Urine Culture - Final Catherized NO GROWTH Accuchecks Date 10/01/23 Date 10/01/23 Date 09/30/23 Date 09/30/23 Time 12:13 Time 08:22 Time 21:00 Time 16:25 - Procedures and Test Procedures and Tests throughout Hospitalization: Therapy Orders & Screens 09/26/23 11:58 Respiratory Therapy Assessment DAILY Comment: 09/26/23 14:14 Oxygen Nasal Cannula 3 lpm Comment: Respiratory Therapy Consult ONCE Comment: Reason For Exam: 09/26/23 16:02 Respiratory Therapy Assessment DAILY Comment: Diagnosis: copd exacerbation 09/26/23 16:14 OT Screen per Nursing Assess ONCE Comment: Protocol Order Physician Instructions: Greater than 3 points order OT Admission Screening Reason For Exam: Triggered on Admission Diagnosis: copd exacerbation Open Wound/Cellutlitis/Pressure Ulcers: Yes Acute Fx/ORIF/Change in wt bearing status: Yes Severe MUSCULOSKELETAL pain: No ADL Dysfunction: Yes Acute CVA w/Hemiparesis/Hemiplegia: No Decreased Functional Mobility/Strength: Yes Sprain/Strain: No Acute Post-op Mobility Dysfunction: No Total Points: 14 PT Screen per Nursing Assess ONCE Comment: Protocol Order Physician Instructions: Greater than 3 points order PT Admission Screenin Reason For Exam: Triggered on Admission Diagnosis: copd exacerbation Open Wound/Cellutlitis/Pressure Ulcers: Yes Acute Fx/ORIF/Change in wt bearing status: Yes Severe MUSCULOSKELETAL pain: No ADL Dysfunction: Yes Acute CVA w/Hemiparesis/Hemiplegia: No Decreased Functional Mobility/Strength: Yes Sprain/Strain: No Acute Post-op Mobility Dysfunction: No Total Points: 14 RT Screen per Nursing Assess ONCE Comment: Protocol Order Physician Instructions: Greater than 3 points order RT Admission Screen Reason For Exam: Triggered on Admission Diagnosis: copd exacerbation Diagnosis: copd exacerbation Pneumonia: No Home O2: No Asthma: No CHF: Yes Home CPAP/BIPAP: Yes Home Nebs/MDI: No Total Points: 8 09/26/23 17:04 RT Miscellaneous Order ROUTINE Comment: Physician Instructions: Reason For Exam: CPAP at [facility] Diagnosis: copd exacerbation 09/26/23 21:00 BiPap/CPAP ROUTINE Comment: CPAP 16 Diagnosis: copd exacerbation 09/28/23 10:38 Qualify for Home Oxygen TODAY Comment: Diagnosis: copd exacerbation Discharge Exam General Appearance: no apparent distress, alert, obese Neurologic Exam: alert, oriented x 3, cooperative, normal mood/affect, nml cerebellar function, sensation nml, No motor deficits Eye Exam: PERRL, EOMI, eyes nml inspection Ears, Nose, Throat Exam: normal ENT inspection, pharynx normal, moist mucous membranes Neck Exam: normal inspection, non-tender, supple, full range of motion Respiratory Exam: normal breath sounds, lungs clear, No respiratory distress Cardiovascular Exam: regular rate/rhythm, normal heart sounds Gastrointestinal/Abdomen Exam: soft, No tenderness, No mass Pelvic Exam: deferred Rectal Exam: deferred Back Exam: normal inspection, normal range of motion, No CVA tenderness, No vertebral tenderness Extremity Exam: normal inspection, normal range of motion Skin Exam: normal color, warm, dry Wound Assessment: Skin/Wound Assessment Wound/Incision Assessment Start: 09/26/23 16:14 Text: Status: Active Freq: Q6H Protocol: Document 10/01/23 02:00 LB (Rec: 10/01/23 06:53 LB [id number]) Wound/Incision Assessment Right Coccyx Wound Assessment Shift Assessment Wound Type Pressure Ulcer Wound Stage Stage II Drainage Amount None Drainage Odor None/Absent Comment barrier cream, repositioning Left Coccyx Wound Assessment Shift Assessment Wound Type Pressure Ulcer Wound Stage Stage II Drainage Amount None Drainage Odor None/Absent General Appearance Open to air Comment barrier cream, repositioning Left Foot Wound Assessment Shift Assessment Wound Type Pressure Ulcer Dressing Status Dry & Intact Comment dressing cdi Right Foot Wound Assessment Shift Assessment Wound Type DIABETIC ULCER Dressing Status Dry & Intact Comment dressing cdi Left Posterior Thigh Wound Assessment Shift Assessment Wound Type redness/excoriation Comment weight shift, barrier cream Right Posterior Thigh Wound Assessment Shift Assessment Wound Type Pressure Ulcer Wound Stage Stage III Comment weight shift, barrier cream Medial Other Wound Assessment Shift Assessment Wound Type REDNESS/EXCORIATION Wound Stage Non Pressure Wound Comment nystatin powder applied to abd folds, and under Ganga breasts Wound Photo Photo Taken Yes Comment: in chart Final Diagnosis/Problem List - Final Discharge Diagnosis/Problem (1) COPD exacerbation Current Visit: Yes Status: Acute Code(s): J44.1 - CHRONIC OBSTRUCTIVE PULMONARY DISEASE W (ACUTE) EXACERBATION (2) Acute hypoxic respiratory failure Current Visit: Yes Status: Acute Code(s): J96.01 - ACUTE RESPIRATORY FAILURE WITH HYPOXIA (3) Candidiasis Current Visit: Yes Status: Acute Code(s): B37.9 - CANDIDIASIS, UNSPECIFIED (4) Wounds, multiple Current Visit: Yes Status: Acute Code(s): T07.XXXA - UNSPECIFIED MULTIPLE INJURIES, INITIAL ENCOUNTER (5) Restless legs Current Visit: Yes Status: Chronic (6) DM type 2 (diabetes mellitus, type 2) Current Visit: Yes Status: Chronic (7) Morbid obesity Current Visit: No Status: Chronic Code(s): E66.01 - MORBID (SEVERE) OBESITY DUE TO EXCESS CALORIES (8) Cardiomegaly Current Visit: Yes Status: Acute Code(s): I51.7 - CARDIOMEGALY (9) LISETTE (acute kidney injury) Current Visit: Yes Status: Acute Code(s): N17.9 - ACUTE KIDNEY FAILURE, UNSPECIFIED (10) Foul smelling urine Current Visit: Yes Status: Acute Code(s): R82.90 - UNSPECIFIED ABNORMAL FINDINGS IN URINE (11) Bacterial vaginosis Current Visit: Yes Status: Acute Code(s): N76.0 - ACUTE VAGINITIS; B96.89 - OTH BACTERIAL AGENTS THE CAUSE OF DISEASES CLASSD ELSWHR (12) Physical deconditioning Current Visit: Yes Status: Acute Assessment & Plan: (1) COPD exacerbation - krys Alvarado steriods - 5lNC 97% - BL RA, reports she has had home O2 in the past at home 09/27 - 4LNC 09/28 - RT eval for home O2 needs- she did qualify for home O2 - rehab placement- case management - azithromycin, steroids - 3LNC- 93% 09/29 - 2lNC 99% - awaiting rehab 09/30 - Stop azithromycin - 3LNC- 93% 10/01 - 1lNC 93% Code(s): J44.1 - CHRONIC OBSTRUCTIVE PULMONARY DISEASE W (ACUTE) EXACERBATION (2) Acute hypoxic respiratory failure Current Visit: Yes Status: Acute Assessment & Plan: - on 5LNC - chest XR 09/26 Portable apical lordotic chest demonstrates new cardiomegaly obscuring left mid to lower lung. Remaining visualized lungs are inflated and clear. Bony thorax intact 09/27 - 4lNC 09/28 - 3lNC - CPAP at night Code(s): J96.01 - ACUTE RESPIRATORY FAILURE WITH HYPOXIA (3) Candidiasis Current Visit: Yes Status: Acute Assessment & Plan: - under BL breast and abd skin folds - nystatin powder - pillow cases under affected areas Code(s): B37.9 - CANDIDIASIS, UNSPECIFIED (4) Wounds, multiple Current Visit: Yes Status: Acute Assessment & Plan: - multiple wounds in various stages of healing on body- see pics in chart - perineal and sacral wounds- ramachandran placed, pt incontinent - Podiatry consulted for right foot wound - plan is for I& D tomorrow of right heal wound in OR - NPO at midnight - Narcotic pain control 09/27 - I& D scheduled for today with podiatry - arterial US 09/27 Impression: Limited exam due to patient body habitus. Nonvisualization left/right deep femoral and left posterior tibial arteries. Scattered arteriosclerotic disease bilaterally without critical stenosis/obstruction. - VD BLLE 09/27 Impression: Again Limited exam due to body habitus. Left and right legs again grossly negative for DVT. 09/28 - BL legs and feet wrapped by podiatry - POD #1 I&D right foot wound - F/u with podiatry OP - weight bearing as tolerated - Keflex sent to pharmacy - wounds improving - ramachandran removed 09/29 - POD #3 - Wound culture right foot gram +, Staphyloccous simulans - Zyvox started - possibly d/c on bactrim per culture results- will discuss with podiatry tomorrow. 10/01 - Podiatry set in OP antibiotics and blood culture reviewed Code(s): T07.XXXA - UNSPECIFIED MULTIPLE INJURIES, INITIAL ENCOUNTER (5) Restless legs Current Visit: Yes Status: Chronic Assessment & Plan: - continue ropinirole (6) DM type 2 (diabetes mellitus, type 2) Current Visit: Yes Status: Chronic Assessment & Plan: - A1C pending - accuchecks ac/hs - does not take any medication at home - Const carb diet - Humalog s/s 09/27 - A1C 5.23- controlled (7) Morbid obesity Current Visit: No Status: Chronic Assessment & Plan: - advised diet and exercise control Code(s): E66.01 - MORBID (SEVERE) OBESITY DUE TO EXCESS CALORIES (8) Cardiomegaly Current Visit: Yes Status: Acute Assessment & Plan: - seen on CXR and new - Echo- EJ per vocational rehabilitation technician 51% - Will need Op cardiology f/u Code(s): I51.7 - CARDIOMEGALY (9) LISETTE (acute kidney injury) Current Visit: Yes Status: Acute Assessment & Plan: - Creat 1.14, baseline 0.97 - IVF - Levaquin stopped 09/30 - LISETTE worse Creat 1.34, baseline normal -stopped meloxicam, stopped antibiotics and changed to zyvox - unable to obtain post void bladder scan 10/01 - LISETTE improved and almost back to baseline Code(s): N17.9 - ACUTE KIDNEY FAILURE, UNSPECIFIED (10) Foul smelling urine Current Visit: Yes Status: Acute Assessment & Plan: - UA with C&S -negative - D/C ramachandran 09/30 - repeat UA negative Code(s): R82.90 - UNSPECIFIED ABNORMAL FINDINGS IN URINE (11) Bacterial vaginosis Current Visit: Yes Status: Acute Assessment & Plan: - metronidazole started Code(s): N76.0 - ACUTE VAGINITIS; B96.89 - OTH BACTERIAL AGENTS THE CAUSE OF DISEASES CLASSD ELSWHR (12) Physical deconditioning Current Visit: Yes Status: Acute Assessment & Plan: - pt was sitting on the bedside commode and unable to get up, several people had to assist to get her back in bed. - PT/OT - Rehab placement Code(s): R53.81 - OTHER MALAISE - Discharge Discharge Date: 10/01/23 (rehab [facility]) Disposition: XFER OTHER Condition: Fair Prescriptions: New Nystatin Powder 15 gm [Nystop Powder 15 gm] 1 gm TP BID 10 Days #1 applic Linezolid 600 mg PO BID 13 Days #25 tablet Metronidazole 500 mg [Flagyl 500 MG] 500 mg PO BID 5 Days #9 tablet Continue Ropinirole 2Mg [Requip 2Mg Tab] 4 mg PO HS Cetirizine HCl [Zyrtec] 10 mg PO DAILY Albuterol Sulfate Mdi [ALBUTEROL/Proair Hfa MDI] 2 puff IH Q4HPRN PRN PRN Reason: Shortness Of Breath/Wheezing Duloxetine HCl 30 mg [Cymbalta 30 MG Capsule] 30 mg PO BID hydrOXYzine pamoate [Hydroxyzine Pamoate] 25 mg PO TID PRN PRN Reason: Anxiety Liraglutide [Victoza 2-Raghav] 1.2 mg SQ DAILY Quetiapine Fumarate 50 mg PO HS ondansetron HCL [Ondansetron HCl] 4 mg PO Q8H PRN PRN Reason: Nausea Meloxicam 15 mg [Meloxicam 15 MG] 15 mg PO DAILY Amlodipine Besylate 5 mg [Norvasc 5 mg] 5 mg PO DAILY Instructions: Nystatin (Topical), Exacerbation of COPD (DC), Cephalexin Additional Instructions: [facility] ORDERS: 1800 LINDA DIET ACHS ACCU CHECKS OXYGEN AT 3L/NC CPAP @ HS (WEARS AT HOME) PT/OT EVAL AND TREAT PATIENT CAN BEAR WEIGHT ON RIGHT FOOT TOLERATED WITH SURGICAL SHOE IN PLACE. DR[facility] OFFICE [facility] WILL SEND IN PAIN MED RX TO [facility] SEE ATTACHED MED LIST Follow up with: RICHIE PETERSON DPM [ACTIVE STAFF] - 10/01/23 8:30 am RYDER MENDOSA NP [NON-STAFF PHY W/O PRIVILEGES] - 10/09/23 2:30 pm (Follow up with SLOT OPERATIONS DIRECTOR for Dr. Krueger, [facility] Cardiology) JOLEEN BECKER NP [Primary Care Provider] - 10/05/23 2:45 pm
--- NOTE | 2023-10-01 14:42 | OP ---
SURGERY DATE/TIME: 09/27/20231821 PREOPERATIVE DIAGNOSES: 1) Bilateral diabetic foot ulcers. 2) Controlled diabetes mellitus. 3) Venous insufficiency. 4) Lymphedema. 5) Leukocytosis. POSTOPERATIVE DIAGNOSES: 1) Bilateral diabetic foot ulcers. 2) Controlled diabetes mellitus. 3) Venous insufficiency. 4) Lymphedema. 5) Leukocytosis. PROCEDURES: Debridement of ulcer to the right foot measurements 2.7 x 3.0 and application of multilayer compression dressing to bilateral lower extremity/Unna Boot. SURGEON: Pedro Howard DPM. ACADEMIC SERVICES PROFESSIONAL: None. ANESTHESIA: Local. HEMOSTASIS: Pressure dressing. ESTIMATED BLOOD LOSS: Approximately 2 cc. MATERIALS: None. INDICATION FOR SURGERY: Alice is a very pleasant 58-year-old female who was seen on Sunday evening due to bilateral wounds to the bilateral lower extremity. The patient does have a long-standing history of wounds to the right lower extremity however, they have resolved and on previous history the patient also does have significant lymphedema to the bilateral lower extremities which is largely unmanaged. At this time the patient is ambulatory. However, she has developed some new ulcerations to the bilateral feet. The patient indicates the way she has been walking has gotten worse and she does have some level of neuropathy to the bilateral lower extremity, which has been progressing as time has gone on. The patient understands the purpose of the procedure today. The patient understands all risks, complications and benefits of surgical intervention at this time including but not limited to infection, hematoma, seroma, possibility of delayed wound healing or nonwound healing and possible failure of intervention. The patient did have a discussion with the POLICE [employer]IST[employer] team prior to the procedure for which given her medical picture, she was not a good candidate to proceed into an OR setting under any safe level of sedation. Decision was made to proceed with a local block at bedside. The patient understands this and wishes to proceed at this time. Prior to the procedure, iodine prep was prepared on the right lower extremity under aseptic technique. DESCRIPTION OF PROCEDURE AND FINDINGS: Injection of a 1:1 mixture of 1% lidocaine plain and 0.5% bupivacaine plain was injected into the sural nerve distribution as well as the posterior tibial nerve distribution to the right foot. Following this, copious amounts of sterile saline were utilized to cleanse the area. Following this, 15 blade and loop curette were utilized to debride the wound which demonstrated significant amount of necrotic slough however significantly healthy granulation tissue beneath. Measurements as indicated above. Following this, the wounds were cleansed and multilayer compression dressings in the form of Unna boots were applied to the bilateral lower extremity. The patient handled the procedure without significant complication. Postoperative orders as indicated in the patient's inpatient chart.
[2023-10-01 16:08] LABS: Slide Review YES
[2023-10-01] MEDS: ZOFRAN ODT 4 MG PO PRN (17:47)
[2023-10-02] MEDS: Sodium Chloride 0.9% 1000 ML 1,000 ML IV SCH (04:59)
[2023-10-02 05:27] LABS: ALBUMIN 3.3 g/dL (3.5-5.0); ANION GAP 5.9 MEQ/L (5-15); BILIRUBIN,TOTAL 0.7 mg/dL (0.2-1.3); Calcium 8.4 mg/dL (8.4-10.2); Creatinine 1 1.06 mg/dL (0.52-1.04); EST GLOMERULAR FILTRATION RATE 60.9 ML/MIN; Potassium 4.9 mmol/L (3.5-5.1); Total Protein 6.4 g/dL (6.3-8.2)
--- NOTE | 2023-10-02 07:30 | PCM.DS ---
Discharge Summary Date of Admission: 09/27/23 10:00 Date of Discharge: 10/02/23 Admitting Physician: NICK CALL MD Consults: Consults on Case 09/26/23 15:01 Consult Podiatry ROUTINE 09/26/23 16:14 Case Management SDOH DC Needs Assessment ROUTINE 09/27/23 10:40 Nutritional Consult ROUTINE Primary Care Provider: JOLEEN BECKER Allergies Allergies albuterol Allergy (Intermediate, Verified 11/04/15 09:13) Difficulty Breathing adhesive Allergy (Verified 04/28/15 22:26) codeine [Codeine] Allergy (Verified 04/28/15 22:26) Headache INCREASE HTN latex Allergy (Verified 04/28/15 22:26) Penicillins Allergy (Verified 04/28/15 22:26) Nausea and Vomiting SWELLING pineapple [Pineapple] Allergy (Verified 04/28/15 22:26) vancomycin Adverse Reaction (Mild, Verified 11/07/15 17:40) Itching Hospital Summary - Hospital Course Hospital Course: 09/26/23 is a 58 year old female with PMHX of morbid obesity, oxygen use at home, type II DM, COPD, HTN, hyperlipidemia, CHF, migraines, PE, OA, and peripheral neuropathy. She was brought in the ER from primary care office with h ypoxia and increasing shortness of breath. Patient reports she has been feeling short of breath since July which gets worse with exertion and better with resting with some nonproductive cough and chest soreness at times. Patient oxygen saturation was dropping in the 80s, placed on 3 L oxygen and O2 increased to 92% in ER. Patient denies fever or chills. Patient was originally at primary care office for right heel ulcer which is nonhealing. Denies any fall or trauma. She has multiple sores on her body including, BL legs, BL feet, and buttock. She appears to have a yeast infection under BL breast and abd folds. These areas are also excoriated. Pillow cases have been placed to aide with healing. Podiatry consulted and arterial duplex ordered. She is concerned if she has medicade or not ad this is her reason for not f/u with her care sooner. Case management to discuss with pt. She states she used to go to [place] [facility] for her depression and has not been since February. She would like to go back if possible. She denies suicidal or homicidal thoughts at this time. She is currently on 5LNC. Levaquin, steroids, and duonebs started in the ER for COPD exacerbation, will continue same plan of care. She is c/o pain of right heal 03/22. Insight Plus has worked well for her in the past. She denies CP, abd pain, N/V/D. 09/27/23 Pt resting in bed. She explains she has been anxious all night about the foot procedure. She is concerned as she may not be able to have anesthesia. She is worried that if she is not asleep she may have a lot of pain and cannot handle this. Advised her to discuss her concerns with podiatry today. She explains her mouth is extremely dry and Biotene addeded to med list. Labs do show some LISETTE today and IVF started, She is on 4LNC, lungs sounds are clear. She denies CP, SOB, abd. pain, N/V/D. 09/28/23 Pt resting in bed. Podiatry is ok with d/c and f/u OP. She did have an I&D procedure yesterday. BL legs and feet wrapped. She is to be weight bearing as tolerated. Per podiatry will need to d/c on Keflex. Ramachandran Urine appears dark, UC with C&S sent. Per nurse urine is foul smelling. Ramachandran removed and pt got up to bed side commode and was unable to get up. It took several people to get her back in bed. Case management discussed with pt and she is willing to go to rehab. She is psychologically stable but frustrated with deconditioning. She is c/o vaginal fishy odor, metronidazole started for vaginosis. Will continue IVF for LISETTE. Continue steroids and antibiotics for COPD exacerbation. She denies CP, SOB, Abd. pain, N/V/D. 09/29/23 Pt resting in bed. She is awaiting rehab placement. She is feeling and breathing has improved. UC pending. Wound culture came back gram positive, sensitivity pending. She denies any further concerns at this time. 09/30/23 Pt resting in bed on continued 4lNC. SOB has improved. LISETTE is a bit worse today. Stopped Meloxicam. Unable to check a post void bladder scan due to body habitus. Antibiotics changed to Zyvox per wound culture results. Can be on Bactrim at d/c per sensitivity. Will discuss with podiatry tomorrow. Pt awaiting rehab placement and most likely to d/c tomorrow. . She continue to have some right foot pain but pain medication helps to keep pain controlled. She denies any further concerns at this time. 10/01 Pt is resting in bed. She explains she feels rather out of it today. Her labs have improved overall, LISETTE - improved. Rehab is ready and she will d/c today. Podiatry aware of blood cultures and changed medications to d/c with. Rehab to [facility] for home O2 needs 2:2 chronic COPD. Pt denies any further concerns at this time. 10/02 Pt was unable to be discharged yesterday as pt required bariatric equipment and there was not a transportation service available to provide this. Pt Had some intermittent confusion last night. Will hold Cymbalta for now as combined with zyvox can cause this. LISETTE almost resolved. Plan is for pt to tx to [facility] rehab today. - Vitals & Intake/Output Vital Signs: Vital Signs Temperature 97.6 F 10/02/23 04:00 Pulse Rate 74 10/02/23 07:20 Respiratory Rate 18 10/02/23 07:20 Blood Pressure 154/82 10/02/23 04:00 O2 Sat by Pulse Oximetry 97 10/02/23 07:20 Intake & Output: Intake & Output 09/29/23 09/30/23 10/01/23 10/02/23 11:59 11:59 11:59 11:59 Intake Total 3329 1580 5723 60 Output Total 500 Balance 2829 1580 5723 60 - Lab Result Diagrams: 10/01/23 09:48 10/02/23 04:40 Lab Results-Last 24 Hrs: Lab Results-Last 24 Hours 10/01/23 10/01/23 10/01/23 Range/Units 07:56 09:48 09:48 WBC 8.5 (4.0-10.5) x10^3/uL RBC 3.89 L (4.1-5.4) x10^6/uL Hgb 9.7 L (12.0-16.0) g/dL Hct 35.3 (35-47) % MCV 90.7 (78-100) fL MCH 24.9 L (26-32) pg MCHC 27.5 L (32-36) g/dL RDW 16.1 H (11.5-14.0) % Plt Count 170 (150-450) x10^3/uL MPV 9.7 (7.5-11.0) fL Sodium 138 (137-145) mmol/L Potassium 4.7 (3.5-5.1) mmol/L Chloride 104 (98-107) mmol/L Carbon Dioxide 32 H (22-30) mmol/L Anion Gap 6.2 (5-15) MEQ/L BUN 34 H (7-17) mg/dL Creatinine 1.07 H (0.52-1.04) mg/dL Estimated GFR 60.2 ML/MIN Glucose 123 H (74-106) mg/dL POC Glucometer 122 H (74 to 106) mg/dL Calcium 8.1 L (8.4-10.2) mg/dL Total Bilirubin 0.50 (0.2-1.3) mg/dL AST 30 (14-36) U/L ALT 30 (0-35) U/L Alkaline Phosphatase 65 (38-126) U/L Serum Total Protein 6.4 (6.3-8.2) g/dL Albumin 3.2 L (3.5-5.0) g/dL Slides for Path Review YES 10/01/23 10/01/23 10/01/23 Range/Units 11:44 16:44 21:31 WBC (4.0-10.5) x10^3/uL RBC (4.1-5.4) x10^6/uL Hgb (12.0-16.0) g/dL Hct (35-47) % MCV (78-100) fL MCH (26-32) pg MCHC (32-36) g/dL RDW (11.5-14.0) % Plt Count (150-450) x10^3/uL MPV (7.5-11.0) fL Sodium (137-145) mmol/L Potassium (3.5-5.1) mmol/L Chloride (98-107) mmol/L Carbon Dioxide (22-30) mmol/L Anion Gap (5-15) MEQ/L BUN (7-17) mg/dL Creatinine (0.52-1.04) mg/dL Estimated GFR ML/MIN Glucose (74-106) mg/dL POC Glucometer 143 H 156 H 116 H (74 to 106) mg/dL Calcium (8.4-10.2) mg/dL Total Bilirubin (0.2-1.3) mg/dL AST (14-36) U/L ALT (0-35) U/L Alkaline Phosphatase (38-126) U/L Serum Total Protein (6.3-8.2) g/dL Albumin (3.5-5.0) g/dL Slides for Path Review 10/02/23 10/02/23 Range/Units 04:40 06:54 WBC (4.0-10.5) x10^3/uL RBC (4.1-5.4) x10^6/uL Hgb (12.0-16.0) g/dL Hct (35-47) % MCV (78-100) fL MCH (26-32) pg MCHC (32-36) g/dL RDW (11.5-14.0) % Plt Count (150-450) x10^3/uL MPV (7.5-11.0) fL Sodium 138 (137-145) mmol/L Potassium 4.9 (3.5-5.1) mmol/L Chloride 101 (98-107) mmol/L Carbon Dioxide 36 H (22-30) mmol/L Anion Gap 5.9 (5-15) MEQ/L BUN 33 H (7-17) mg/dL Creatinine 1.06 H (0.52-1.04) mg/dL Estimated GFR 60.9 ML/MIN Glucose 145 H (74-106) mg/dL POC Glucometer 132 H (74 to 106) mg/dL Calcium 8.4 (8.4-10.2) mg/dL Total Bilirubin 0.70 (0.2-1.3) mg/dL AST 24 (14-36) U/L ALT 27 (0-35) U/L Alkaline Phosphatase 71 (38-126) U/L Serum Total Protein 6.4 (6.3-8.2) g/dL Albumin 3.3 L (3.5-5.0) g/dL Slides for Path Review Micro Results-Entire Visit: Microbiology 09/26/23 11:38 Blood Culture - Final Blood 09/26/23 16:43 Wound Culture - Final Heel - Right Staphylococcus Simulans 09/26/23 19:20 Urine Culture - Final Catherized NO GROWTH Accuchecks Date 10/02/23 Date 10/01/23 Date 10/01/23 Date 10/01/23 Date 10/01/23 Time 07:11 Time 16:59 Time 12:13 Time 08:22 - Procedures and Test Procedures and Tests throughout Hospitalization: Therapy Orders & Screens 09/26/23 11:58 Respiratory Therapy Assessment DAILY Comment: 09/26/23 14:14 Oxygen Nasal Cannula 3 lpm Comment: Respiratory Therapy Consult ONCE Comment: Reason For Exam: 09/26/23 16:02 Respiratory Therapy Assessment DAILY Comment: Diagnosis: copd exacerbation 09/26/23 16:14 OT Screen per Nursing Assess ONCE Comment: Protocol Order Physician Instructions: Greater than 3 points order OT Admission Screening Reason For Exam: Triggered on Admission Diagnosis: copd exacerbation Open Wound/Cellutlitis/Pressure Ulcers: Yes Acute Fx/ORIF/Change in wt bearing status: Yes Severe MUSCULOSKELETAL pain: No ADL Dysfunction: Yes Acute CVA w/Hemiparesis/Hemiplegia: No Decreased Functional Mobility/Strength: Yes Sprain/Strain: No Acute Post-op Mobility Dysfunction: No Total Points: 14 PT Screen per Nursing Assess ONCE Comment: Protocol Order Physician Instructions: Greater than 3 points order PT Admission Screenin Reason For Exam: Triggered on Admission Diagnosis: copd exacerbation Open Wound/Cellutlitis/Pressure Ulcers: Yes Acute Fx/ORIF/Change in wt bearing status: Yes Severe MUSCULOSKELETAL pain: No ADL Dysfunction: Yes Acute CVA w/Hemiparesis/Hemiplegia: No Decreased Functional Mobility/Strength: Yes Sprain/Strain: No Acute Post-op Mobility Dysfunction: No Total Points: 14 RT Screen per Nursing Assess ONCE Comment: Protocol Order Physician Instructions: Greater than 3 points order RT Admission Screen Reason For Exam: Triggered on Admission Diagnosis: copd exacerbation Diagnosis: copd exacerbation Pneumonia: No Home O2: No Asthma: No CHF: Yes Home CPAP/BIPAP: Yes Home Nebs/MDI: No Total Points: 8 09/26/23 17:04 RT Miscellaneous Order ROUTINE Comment: Physician Instructions: Reason For Exam: CPAP at [facility] Diagnosis: copd exacerbation 09/26/23 21:00 BiPap/CPAP ROUTINE Comment: CPAP 16 Diagnosis: copd exacerbation 09/28/23 10:38 Qualify for Home Oxygen TODAY Comment: Diagnosis: copd exacerbation Discharge Exam General Appearance: no apparent distress, alert Neurologic Exam: alert, oriented x 3, cooperative, normal mood/affect, nml cerebellar function, sensation nml, No motor deficits Eye Exam: PERRL, EOMI, eyes nml inspection Ears, Nose, Throat Exam: normal ENT inspection, pharynx normal, moist mucous membranes Neck Exam: normal inspection, non-tender, supple, full range of motion Respiratory Exam: normal breath sounds, lungs clear, No respiratory distress Cardiovascular Exam: regular rate/rhythm, normal heart sounds Gastrointestinal/Abdomen Exam: soft, No tenderness, No mass Pelvic Exam: deferred Rectal Exam: deferred Back Exam: normal inspection, normal range of motion, No CVA tenderness, No vertebral tenderness Extremity Exam: normal inspection, normal range of motion Skin Exam: normal color, warm, dry Wound Assessment: Skin/Wound Assessment Wound/Incision Assessment Start: 09/26/23 16:14 Text: Status: Active Freq: Q6H Protocol: Document 10/02/23 02:00 MP (Rec: 10/02/23 02:26 MP [id number]) Wound/Incision Assessment Right Coccyx Wound Assessment Shift Assessment Wound Type Pressure Ulcer Wound Stage Stage II Drainage Amount None Drainage Odor None/Absent Comment barrier cream, repositioning Left Coccyx Wound Assessment Shift Assessment Wound Type Pressure Ulcer Wound Stage Stage II Drainage Amount None Drainage Odor None/Absent General Appearance Open to air Comment barrier cream, repositioning Left Foot Wound Assessment Shift Assessment Wound Type Pressure Ulcer Dressing Status Dry & Intact Comment changed by podiatry today Right Foot Wound Assessment Shift Assessment Wound Type DIABETIC ULCER Dressing Status Dry & Intact Comment changed by podiatry today Left Posterior Thigh Wound Assessment Shift Assessment Wound Type redness/excoriation Comment weight shift, barrier cream Right Posterior Thigh Wound Assessment Shift Assessment Wound Type Pressure Ulcer Wound Stage Stage III Comment weight shift, barrier cream Medial Other Wound Assessment Shift Assessment Wound Type REDNESS/EXCORIATION Wound Stage Non Pressure Wound Comment nystatin powder applied to abdominal folds, and under Bilateral breasts Wound Photo Photo Taken Yes Comment: previously Final Diagnosis/Problem List - Final Discharge Diagnosis/Problem (1) COPD exacerbation Current Visit: Yes Status: Acute Code(s): J44.1 - CHRONIC OBSTRUCTIVE PULMONARY DISEASE W (ACUTE) EXACERBATION (2) Acute hypoxic respiratory failure Current Visit: Yes Status: Acute Code(s): J96.01 - ACUTE RESPIRATORY FAILURE WITH HYPOXIA (3) Candidiasis Current Visit: Yes Status: Acute Code(s): B37.9 - CANDIDIASIS, UNSPECIFIED (4) Wounds, multiple Current Visit: Yes Status: Acute Code(s): T07.XXXA - UNSPECIFIED MULTIPLE INJURIES, INITIAL ENCOUNTER (5) Restless legs Current Visit: Yes Status: Chronic (6) DM type 2 (diabetes mellitus, type 2) Current Visit: Yes Status: Chronic (7) Morbid obesity Current Visit: No Status: Chronic Code(s): E66.01 - MORBID (SEVERE) OBESITY DUE TO EXCESS CALORIES (8) Cardiomegaly Current Visit: Yes Status: Acute Code(s): I51.7 - CARDIOMEGALY (9) LISETTE (acute kidney injury) Current Visit: Yes Status: Acute Code(s): N17.9 - ACUTE KIDNEY FAILURE, UNSPECIFIED (10) Foul smelling urine Current Visit: Yes Status: Acute Code(s): R82.90 - UNSPECIFIED ABNORMAL FINDINGS IN URINE (11) Bacterial vaginosis Current Visit: Yes Status: Acute Code(s): N76.0 - ACUTE VAGINITIS; B96.89 - OTH BACTERIAL AGENTS THE CAUSE OF DISEASES CLASSD ELSWHR (12) Physical deconditioning Current Visit: Yes Status: Acute Assessment & Plan: (1) COPD exacerbation - krys Alvarado steriods - 5lNC 97% - BL RA, reports she has had home O2 in the past at home 09/27 - 4LNC 09/28 - RT eval for home O2 needs- she did qualify for home O2 - rehab placement- case management - azithromycin, steroids - 3LNC- 93% 09/29 - 2lNC 99% - awaiting rehab 09/30 - Stop azithromycin - 3LNC- 93% 10/01 - 1lNC 93% Code(s): J44.1 - CHRONIC OBSTRUCTIVE PULMONARY DISEASE W (ACUTE) EXACERBATION (2) Acute hypoxic respiratory failure Current Visit: Yes Status: Acute Assessment & Plan: - on 5LNC - chest XR 09/26 Portable apical lordotic chest demonstrates new cardiomegaly obscuring left mid to lower lung. Remaining visualized lungs are inflated and clear. Bony thorax intact 09/27 - 4lNC 09/28 - 3lNC - CPAP at night Code(s): J96.01 - ACUTE RESPIRATORY FAILURE WITH HYPOXIA (3) Candidiasis Current Visit: Yes Status: Acute Assessment & Plan: - under BL breast and abd skin folds - nystatin powder - pillow cases under affected areas Code(s): B37.9 - CANDIDIASIS, UNSPECIFIED (4) Wounds, multiple Current Visit: Yes Status: Acute Assessment & Plan: - multiple wounds in various stages of healing on body- see pics in chart - perineal and sacral wounds- ramachandran placed, pt incontinent - Podiatry consulted for right foot wound - plan is for I& D tomorrow of right heal wound in OR - NPO at midnight - Narcotic pain control 09/27 - I& D scheduled for today with podiatry - arterial US 09/27 Impression: Limited exam due to patient body habitus. Nonvisualization left/right deep femoral and left posterior tibial arteries. Scattered arteriosclerotic disease bilaterally without critical stenosis/obstruction. - VD BLLE 09/27 Impression: Again Limited exam due to body habitus. Left and right legs again grossly negative for DVT. 09/28 - BL legs and feet wrapped by podiatry - POD #1 I&D right foot wound - F/u with podiatry OP - weight bearing as tolerated - Keflex sent to pharmacy - wounds improving - ramachandran removed 09/29 - POD #3 - Wound culture right foot gram +, Staphyloccous simulans - Zyvox started - possibly d/c on Bactrim per culture results- will discuss with podiatry tomorrow. 10/01 - Podiatry set in OP antibiotics and blood culture reviewed 10/02 - Hold Cymbalta while taking Zyvox as it can cause increased confusion Code(s): T07.XXXA - UNSPECIFIED MULTIPLE INJURIES, INITIAL ENCOUNTER (5) Restless legs Current Visit: Yes Status: Chronic Assessment & Plan: - continue ropinirole (6) DM type 2 (diabetes mellitus, type 2) Current Visit: Yes Status: Chronic Assessment & Plan: - A1C pending - accuchecks ac/hs - does not take any medication at home - Const carb diet - Humalog s/s 09/27 - A1C 5.23- controlled (7) Morbid obesity Current Visit: No Status: Chronic Assessment & Plan: - advised diet and exercise control Code(s): E66.01 - MORBID (SEVERE) OBESITY DUE TO EXCESS CALORIES (8) Cardiomegaly Current Visit: Yes Status: Acute Assessment & Plan: - seen on CXR and new - Echo- EJ per consulting technical manager 51% - Will need Op cardiology f/u Code(s): I51.7 - CARDIOMEGALY (9) LISETTE (acute kidney injury) Current Visit: Yes Status: Acute Assessment & Plan: - Creat 1.14, baseline 0.97 - IVF - Levaquin stopped 09/30 - LISETTE worse Creat 1.34, baseline normal -stopped meloxicam, stopped antibiotics and changed to zyvox - unable to obtain post void bladder scan 10/01 - LISETTE improved and almost back to baseline Code(s): N17.9 - ACUTE KIDNEY FAILURE, UNSPECIFIED (10) Foul smelling urine Current Visit: Yes Status: Acute Assessment & Plan: - UA with C&S -negative - D/C ramachandran 09/30 - repeat UA negative Code(s): R82.90 - UNSPECIFIED ABNORMAL FINDINGS IN URINE (11) Bacterial vaginosis Current Visit: Yes Status: Acute Assessment & Plan: - metronidazole started Code(s): N76.0 - ACUTE VAGINITIS; B96.89 - OTH BACTERIAL AGENTS THE CAUSE OF DISEASES CLASSD ELSWHR (12) Physical deconditioning Current Visit: Yes Status: Acute Assessment & Plan: - pt was sitting on the bedside commode and unable to get up, several people had to assist to get her back in bed. - PT/OT - Rehab placement Code(s): R53.81 - OTHER MALAISE - Discharge Discharge Date: 10/02/23 (rehab) Disposition: XFER OTHER Condition: Fair Prescriptions: New Nystatin Powder 15 gm [Nystop Powder 15 gm] 1 gm TP BID 10 Days #1 applic Linezolid 600 mg PO BID 13 Days #25 tablet Metronidazole 500 mg [Flagyl 500 MG] 500 mg PO BID 5 Days #9 tablet Continue Ropinirole 2Mg [Requip 2Mg Tab] 4 mg PO HS Cetirizine HCl [Zyrtec] 10 mg PO DAILY Albuterol Sulfate Mdi [ALBUTEROL/Proair Hfa MDI] 2 puff IH Q4HPRN PRN PRN Reason: Shortness Of Breath/Wheezing Duloxetine HCl 30 mg [Cymbalta 30 MG Capsule] 30 mg PO BID hydrOXYzine pamoate [Hydroxyzine Pamoate] 25 mg PO TID PRN PRN Reason: Anxiety Liraglutide [Victoza 2-Raghav] 1.2 mg SQ DAILY Quetiapine Fumarate 50 mg PO HS ondansetron HCL [Ondansetron HCl] 4 mg PO Q8H PRN PRN Reason: Nausea Meloxicam 15 mg [Meloxicam 15 MG] 15 mg PO DAILY Amlodipine Besylate 5 mg [Norvasc 5 mg] 5 mg PO DAILY Instructions: Nystatin (Topical), Exacerbation of COPD (DC), Cephalexin Additional Instructions: PRISON ORDERS: 1800 LINDA DIET ACHS ACCU CHECKS OXYGEN AT 3L/NC CPAP @ HS (WEARS AT HOME) PT/OT EVAL AND TREAT PATIENT CAN BEAR WEIGHT ON RIGHT FOOT TOLERATED WITH SURGICAL SHOE IN PLACE. DR. QUIROZ'S OFFICE WILL SEND IN DRESSING CHANGE ORDERS DIRECTLY TO [facility] DR. QUIROZ'S OFFICE WILL SEND IN PAIN MED RX TO [facility] SEE ATTACHED MED LIST Hold Cymbalta while getting Zyvox. Restart when Zyvox completed. Follow up with: RICHIE PETERSON DPM [ACTIVE STAFF] - 10/08/23 9:30 am RYDER MENDOSA NP [NON-STAFF PHY W/O PRIVILEGES] - 10/09/23 2:30 pm (Follow up with SENIOR SOFTWARE QUALITY ANALYST for Dr. Krueger, [facility]) JOLEEN BECKER NP [Primary Care Provider] - 10/05/23 2:45 pm Forms: Ambulance Transport Record
[2023-10-02 07:33] LABS: Hematocrit 36.6 % (35-47); Hemoglobin 10.2 g/dL (12.0-16.0); Mean Cell Volume 91.3 fL (78-100); Mean Corpuscular Hemoglobin 25.4 pg (26-32); Mean Corpuscular Hgb Concent. 27.9 g/dL (32-36); Platelet Count 163 x10^3/uL (150-450); Red Blood Count 4.01 x10^6/uL (4.1-5.4); Red Cell Distribution Width 16.4 % (11.5-14.0); White Blood Count 10.8 x10^3/uL (4.0-10.5)
[2023-10-02 08:05] LABS: Slide Review YES
--- NOTE | 2023-10-02 08:32 | PCM.NOTE ---
Date and Time: 10/02/23827 Subjective Assessment: Seen at bedside this AM. Doing significantly better clinically. Has decided on stay at rehab facility. Physical Exam - General General Appearance: no apparent distress, obese - Neuro Neurologic: Epicritic and protopathic - Vascular Peripheral Pulses: Posterior tibialis: 2+, Dorsalis-Pedis: 2+ Capillary Refill Time: < 3 seconds Hair Growth: Symmetrical and Bilateral Varicosities: Negtive Edema: Pitting Edema Degree: 4+ Skin Temperature: Warm to touch - Narrative Narrative Physical Exam: Podiatry Physical Exam OBJECTIVE DATA Vital Signs: Vital Signs - 24 hr Temp Pulse Resp BP Pulse Ox 10/02/23 07:47 96.9 F 64 19 151/83 97 10/02/23 07:20 74 18 97 10/02/23 04:00 97.6 F 71 18 154/82 92 L 10/01/23 23:54 65 20 163/83 99 10/01/23 19:01 96.8 F 58 L 20 139/71 99 10/01/23 18:45 67 18 98 10/01/23 16:00 97.8 F 63 16 153/85 98 10/01/23 12:00 97.6 F 64 18 154/86 97 Pain Assessment - Last Documented Pain Intensity 5 Pain Scale Used [facility] Intake and Output: Intake & Output 09/29/23 09/30/23 10/01/23 10/02/23 11:59 11:59 11:59 11:59 Intake Total 3329 1580 5723 60 Output Total 500 Balance 2829 1580 5723 60 Lab Results: Lab Results-Last 24 Hours 10/01/23 10/01/23 10/01/23 Range/Units 09:48 09:48 11:44 WBC 8.5 (4.0-10.5) x10^3/uL RBC 3.89 L (4.1-5.4) x10^6/uL Hgb 9.7 L (12.0-16.0) g/dL Hct 35.3 (35-47) % MCV 90.7 (78-100) fL MCH 24.9 L (26-32) pg MCHC 27.5 L (32-36) g/dL RDW 16.1 H (11.5-14.0) % Plt Count 170 (150-450) x10^3/uL MPV 9.7 (7.5-11.0) fL Sodium 138 (137-145) mmol/L Potassium 4.7 (3.5-5.1) mmol/L Chloride 104 (98-107) mmol/L Carbon Dioxide 32 H (22-30) mmol/L Anion Gap 6.2 (5-15) MEQ/L BUN 34 H (7-17) mg/dL Creatinine 1.07 H (0.52-1.04) mg/dL Estimated GFR 60.2 ML/MIN Glucose 123 H (74-106) mg/dL POC Glucometer 143 H (74 to 106) mg/dL Calcium 8.1 L (8.4-10.2) mg/dL Total Bilirubin 0.50 (0.2-1.3) mg/dL AST 30 (14-36) U/L ALT 30 (0-35) U/L Alkaline Phosphatase 65 (38-126) U/L Serum Total Protein 6.4 (6.3-8.2) g/dL Albumin 3.2 L (3.5-5.0) g/dL Slides for Path Review YES 10/01/23 10/01/23 10/02/23 Range/Units 16:44 21:31 04:40 WBC (4.0-10.5) x10^3/uL RBC (4.1-5.4) x10^6/uL Hgb (12.0-16.0) g/dL Hct (35-47) % MCV (78-100) fL MCH (26-32) pg MCHC (32-36) g/dL RDW (11.5-14.0) % Plt Count (150-450) x10^3/uL MPV (7.5-11.0) fL Sodium 138 (137-145) mmol/L Potassium 4.9 (3.5-5.1) mmol/L Chloride 101 (98-107) mmol/L Carbon Dioxide 36 H (22-30) mmol/L Anion Gap 5.9 (5-15) MEQ/L BUN 33 H (7-17) mg/dL Creatinine 1.06 H (0.52-1.04) mg/dL Estimated GFR 60.9 ML/MIN Glucose 145 H (74-106) mg/dL POC Glucometer 156 H 116 H (74 to 106) mg/dL Calcium 8.4 (8.4-10.2) mg/dL Total Bilirubin 0.70 (0.2-1.3) mg/dL AST 24 (14-36) U/L ALT 27 (0-35) U/L Alkaline Phosphatase 71 (38-126) U/L Serum Total Protein 6.4 (6.3-8.2) g/dL Albumin 3.3 L (3.5-5.0) g/dL Slides for Path Review 10/02/23 10/02/23 Range/Units 04:40 06:54 WBC 10.8 H (4.0-10.5) x10^3/uL RBC 4.01 L (4.1-5.4) x10^6/uL Hgb 10.2 L (12.0-16.0) g/dL Hct 36.6 (35-47) % MCV 91.3 (78-100) fL MCH 25.4 L (26-32) pg MCHC 27.9 L (32-36) g/dL RDW 16.4 H (11.5-14.0) % Plt Count 163 (150-450) x10^3/uL MPV 10.0 (7.5-11.0) fL Sodium (137-145) mmol/L Potassium (3.5-5.1) mmol/L Chloride (98-107) mmol/L Carbon Dioxide (22-30) mmol/L Anion Gap (5-15) MEQ/L BUN (7-17) mg/dL Creatinine (0.52-1.04) mg/dL Estimated GFR ML/MIN Glucose (74-106) mg/dL POC Glucometer 132 H (74 to 106) mg/dL Calcium (8.4-10.2) mg/dL Total Bilirubin (0.2-1.3) mg/dL AST (14-36) U/L ALT (0-35) U/L Alkaline Phosphatase (38-126) U/L Serum Total Protein (6.3-8.2) g/dL Albumin (3.5-5.0) g/dL Slides for Path Review YES Multi-Disciplinary Progress Notes: Multi-Disciplinary Progress Notes 10/01/23 15:01 Case Management Note by Jewels Pate S/[employer] [facility] ABOUT TRANSPORT TO FACILITY D/T [facility]. THEY REPORT THEY CAN COME GET PATIENT TOMORROW (TODAY THEY HAVE NO TRANSPORTATION AVAILABLE). THEY WILL BRING A SLING FROM THEIR FACILITY SO [facility] CAN BE USED TO HELP TO GET PATIENT TO AND FROM CHAIR Initialized on 10/01/23 15:01 - END OF NOTE 10/01/23 12:57 Case Management Note by Jewels Pate/Law QUIROZ- OKAY TO OVERRIDE LINZOLID INTERACTION WITH TOM Initialized on 10/01/23 12:57 - END OF NOTE 10/01/23 12:47 Case Management Note by Jewels Pate [facility] IS READY FOR PATIENT TODAY- PATIENT WILL NEED TO GO BY AMBULANCE THEIR WHEELCHAIR VAN IS NOT RATED FOR PATIENT'S WEIGHT. S/W PATIENT- SHE CONTINUES TO BE AGREEABLE TO PLAN TO TRANSITION TO [facility] FOR SHORT TERM REHAB Initialized on 10/01/23 12:47 - END OF NOTE 10/01/23 12:00 (created 10/01/23 13:40) Case Management Note by Jewels Pate S/Law QUIROZ ABOUT DC PLANS- HE WAS SHOWN CULTURE. STATED TO DC KEFLEX AT ID AND SEND ON PHARMACY RECOMMENDATIONS FOR PO ANTIBIOTIC. S/W VINICIO- RECOMMENDS CONTINUE LINEZOLID FOR A TOTAL OF 14 DAY COURSE. (600 MG PO BID) Initialized on 10/01/23 13:40 - END OF NOTE 10/01/23 08:38 Case Management Note by Jewels Pate CLINICAL UPDATE, CULTURE AND SENS REPORT, PASRR PAPERWORK FAXED TO [facility] Initialized on 10/01/23 08:38 - END OF NOTE 10/01/23 08:37 Case Management Note by Jewels Pate LATE ENTRY FOR 09/29/23@1100: S/W EM AT [facility]- THEY HAVE ACCEPTED PATIENT BUT NEEDED TO ORDER BARIATRIC EQUIPMENT FOR PATIENT. THIS WILL LIKELY NOT BE IN UNTIL SUNDAY. Initialized on 10/01/23 08:37 - END OF NOTE Assessment/Plan (1) Morbid obesity Current Visit: No Status: Chronic Code(s): E66.01 - MORBID (SEVERE) OBESITY DUE TO EXCESS CALORIES (2) Cellulitis, leg Current Visit: No Status: Acute (3) Lymphedema Current Visit: No Status: Acute Assessment & Plan: Patient examination and evalutation Wound appear to be doing well without any signficant complication. Clean wound base without any residual signs of infection Cultures demonstrating fairly resistant staph simulans. Continue linezolid outpatient for now Dressings changed today Unna boots reapplied with signficant improvement to bilateral lower leg edema and pain Winton 5/325 for pain control. Will follow out patient. Code(s): I89.0 - LYMPHEDEMA, NOT ELSEWHERE CLASSIFIED (4) COPD exacerbation Current Visit: Yes Status: Acute Code(s): J44.1 - CHRONIC OBSTRUCTIVE PULMONARY DISEASE W (ACUTE) EXACERBATION (5) Acute hypoxic respiratory failure Current Visit: Yes Status: Acute Code(s): J96.01 - ACUTE RESPIRATORY FAILURE WITH HYPOXIA (6) Wounds, multiple Current Visit: Yes Status: Acute Code(s): T07.XXXA - UNSPECIFIED MULTIPLE INJURIES, INITIAL ENCOUNTER (7) Restless legs Current Visit: Yes Status: Chronic (8) DM type 2 (diabetes mellitus, type 2) Current Visit: Yes Status: Chronic
[2023-10-02 10:18] LABS: A-aADO2 38; ABG HEMOGLOBIN 10.5; ABG POTASSIUM 5.2 (3.5-5.1); ARTERIAL BLD GAS O2 SATURATION 96.9 % (95-100); ARTERIAL BLOOD GAS BASE EXCESS 8.9 (-2.0-2.0); ARTERIAL BLOOD GAS FIO2 32 %; ARTERIAL BLOOD GAS PO2 80 mmHg (75-100); CARBOXYHEMOGLOBIN 1.3 % THgb (0.0-6.9); HCO3- 38.6 (22-28); HGB O2 SAT 94.8 g/dF (94-100); Methhemoglobin 0.8 % (1.4-1.5); paO2 pAO1 0.68
[2023-10-02 10:19] LABS: ABG SITE rt rad; ARTERIAL BLOOD GAS PCO2 88 mmHg (35-45); ARTERIAL BLOOD GAS pH 7.25 (7.35-7.45)
[2023-10-02 10:20] LABS: ALLEN TEST OK? y
[2023-10-02] MEDS: Protonix 40MG Tablet PO SCH (10:52)
--- NOTE | 2023-10-02 10:56 | ECHO ---
DATE OF PROCEDURE: 09/27/2023 CLINICAL INFORMATION: Cardiomegaly seen on chest x-ray, which is new. The M-mode 2D, and Doppler echocardiogram including color flow Doppler shows the left ventricle is normal in size. There is severe asymmetric left ventricular hypertrophy involving the septum. The left ventricular systolic function is at the lower limits of normal. The ejection fraction is calculated to be 51%. This is a very limited study due to body habitus. There is mild tricuspid regurgitation. The right ventricular systolic pressure calculated to be 34 mm of Mercury. The aortic valve is not well visualized. The mitral valve is not well visualized. The pulmonic valve is not well visualized. There is no pericardial effusion present. IMPRESSION: 1) LOW NORMAL CONTRACTILITY OF THE LEFT VENTRICLE. 2) SEVERE ASYMMETRIC LEFT VENTRICULAR HYPERTROPHY INVOLVING THE INTERVENTRICULAR SEPTUM. 3) MILD TRICUSPID REGURGITATION. 4) MILD PULMONARY HYPERTENSION.
--- NOTE | 2023-10-02 13:41 | PCM.NOTE ---
Date and Time: 10/02/23 1336 Subjective Assessment: 09/26/23 is a 58 year old female with PMHX of morbid obesity, oxygen use at home, type II DM, COPD, HTN, hyperlipidemia, CHF, migraines, PE, OA, and peripheral neuropathy. She was brought in the ER from primary care office with hypoxia and increasing shortness of breath. Patient reports she has been feeling short of breath since July which gets worse with exertion and better with resting with some nonproductive cough and chest soreness at times. Patient oxygen saturation was dropping in the 80s, placed on 3 L oxygen and O2 increased to 92% in ER. Patient denies fever or chills. Patient was originally at primary care office for right heel ulcer which is nonhealing. Denies any fall or trauma. She has multiple sores on her body including, BL legs, BL feet, and buttock. She appears to have a yeast infection under BL breast and abd folds. These areas are also excoriated. Pillow cases have been placed to aide with healing. Podiatry consulted and arterial duplex ordered. She is concerned if she has medicade or not ad this is her reason for not f/u with her care sooner. Case management to discuss with pt. She states she used to go to [facility] for her depression and has not been since February. She would like to go back if possible. She denies suicidal or homicidal thoughts at this time. She is currently on 5LNC. Levaquin, steroids, and duonebs started in the ER for COPD exacerbation, will continue same plan of care. She is c/o pain of right heal 03/22. [employer] has worked well for her in the past. She denies CP, abd pain, N/V/D. 09/27/23 Pt resting in bed. She explains she has been anxious all night about the foot procedure. She is concerned as she may not be able to have anesthesia. She is worried that if she is not asleep she may have a lot of pain and cannot handle this. Advised her to discuss her concerns with podiatry today. She explains her mouth is extremely dry and Biotene addeded to med list. Labs do show some LISETTE today and IVF started, She is on 4LNC, lungs sounds are clear. She denies CP, SOB, abd. pain, N/V/D. 09/28/23 Pt resting in bed. Podiatry is ok with d/c and f/u OP. She did have an I&D procedure yesterday. BL legs and feet wrapped. She is to be weight bearing as tolerated. Per podiatry will need to d/c on Keflex. Ramachandran Urine appears dark, UC with C&S sent. Per nurse urine is foul smelling. Ramachandran removed and pt got up to bed side commode and was unable to get up. It took several people to get her back in bed. Case management discussed with pt and she is willing to go to rehab. She is psychologically stable but frustrated with deconditioning. She is c/o vaginal fishy odor, metronidazole started for vaginosis. Will continue IVF for LISETTE. Continue steroids and antibiotics for COPD exacerbation. She denies CP, SOB, Abd. pain, N/V/D. 09/29/23 Pt resting in bed. She is awaiting rehab placement. She is feeling and breathing has improved. UC pending. Wound culture came back gram positive, sensitivity pending. She denies any further concerns at this time. 09/30/23 Pt resting in bed on continued 4lNC. SOB has improved. LISETTE is a bit worse today. Stopped Meloxicam. Unable to check a post void bladder scan due to body habitus. Antibiotics changed to Zyvox per wound culture results. Can be on Bactrim at d/c per sensitivity. Will discuss with podiatry tomorrow. Pt awaiting rehab placement and most likely to d/c tomorrow. . She continue to have some right foot pain but pain medication helps to keep pain controlled. She denies any further concerns at this time. 10/01 Pt is resting in bed. She explains she feels rather out of it today. Her labs have improved overall, LISETTE - improved. Rehab is ready and she will d/c today. P odiatry aware of blood cultures and changed medications to d/c with. Rehab to [facility] for home O2 needs 2:2 chronic COPD. Pt denies any further concerns at this time. 10/02 Pt was unable to be discharged yesterday as pt required bariatric equipment and there was not a transportation service available to provide this. Pt Had some intermittent confusion last night. Will hold Cymbalta for now as combined with zyvox can cause this. LISETTE almost resolved. Plan was for pt to tx to [facility] today but they do have a cpap for her to wear at night until tomorrow. Pt will stay another night for this. Pt awake and alert but not oriented this AM. Ct head ordered bu unable to do because of her size. ABG done and Co2 elevated. Per nurse pt did not keep cpap on at night. Pt placed on bipap. Will recheck ABG later today. Pt denies Cp, Abd. pain, N/V/D. - Review of Systems Constitutional: No Fever, No Chills Eyes: No Symptoms Ears, Nose, & Throat: No Symptoms Respiratory: No Cough, No Short Of Breath Cardiac: No Chest Pain, No Edema, No Syncope Abdominal/Gastrointestinal: No Abdominal Pain, No Nausea, No Vomiting, No Diarrhea Genitourinary Symptoms: No Dysuria Musculoskeletal: No Back Pain, No Neck Pain Skin: No Rash Neurological: Other (new onset confusion), No Dizziness, No Focal Weakness, No Sensory Changes Psychological: No Symptoms Endocrine: No Symptoms Hematologic/Lymphatic: No Symptoms Immunological/Allergic: No Symptoms Objective Exam General Appearance: no apparent distress, alert, obese Neurologic Exam: alert, cooperative, normal mood/affect, sensation nml, other (Confused to place and time.), No motor deficits Skin Exam: normal color, warm, dry Wound Assessment: Skin/Wound Assessment Wound/Incision Assessment Start: 09/26/23 16:14 Text: Status: Active Freq: Q6H Protocol: Document 10/02/23 08:00 EK (Rec: 10/02/23 11:20 EK [id number]) Wound/Incision Assessment Right Coccyx Wound Assessment Shift Assessment Wound Type Pressure Ulcer Wound Stage Stage II Drainage Amount None Drainage Odor None/Absent Comment barrier cream applied - will be reapplied when patient is turned and repositioned every 2 hrs and prn Left Coccyx Wound Assessment Shift Assessment Wound Type Pressure Ulcer Wound Stage Stage II Drainage Amount None Drainage Odor None/Absent General Appearance Open to air Comment barrier cream applied - will be reapplied when patient is turned and repositioned every 2 hrs and prn Left Posterior Thigh Wound Assessment Shift Assessment Wound Type redness/excoriation Comment nystatin powder applied topically - area clean and dry Right Posterior Thigh Wound Assessment Shift Assessment Wound Type redness/excoriation Comment nystatin powder applied topically - area clean and dry Medial Other Wound Assessment Shift Assessment Wound Type REDNESS/EXCORIATION Wound Stage Non Pressure Wound Comment nystatin powder applied topically under bilateral breast and abdominal folds - area clean and dry Eye Exam: PERRL, EOMI, eyes nml inspection Ears, Nose, Throat Exam: normal ENT inspection, pharynx normal, moist mucous membranes Neck Exam: normal inspection, non-tender, supple, full range of motion Respiratory Exam: normal breath sounds, lungs clear, No respiratory distress Cardiovascular Exam: regular rate/rhythm, normal heart sounds Gastrointestinal/Abdomen Exam: soft, No tenderness, No mass Extremity Exam: normal inspection, normal range of motion Back Exam: normal inspection, normal range of motion, No CVA tenderness, No vertebral tenderness Pelvic Exam: deferred Rectal Exam: deferred OBJECTIVE DATA Vital Signs: Vital Signs - 24 hr Temp Pulse Resp BP Pulse Ox 10/02/23 11:25 97.6 F 80 16 138/90 97 10/02/23 07:47 96.9 F 64 19 151/83 97 10/02/23 07:20 74 18 97 10/02/23 04:00 97.6 F 71 18 154/82 92 L 10/01/23 23:54 65 20 163/83 99 10/01/23 19:01 96.8 F 58 L 20 139/71 99 10/01/23 18:45 67 18 98 10/01/23 16:00 97.8 F 63 16 153/85 98 Pain Assessment - Last Documented Pain Intensity 5 Pain Scale Used [facility] Intake and Output: Intake & Output 09/30/23 10/01/23 10/02/23 10/03/23 11:59 11:59 11:59 11:59 Intake Total 1580 5723 120 Balance 1580 5723 120 Lab Results: Lab Results-Last 24 Hours 10/01/23 10/01/23 10/01/23 Range/Units 09:48 16:44 21:31 WBC (4.0-10.5) x10^3/uL RBC (4.1-5.4) x10^6/uL Hgb (12.0-16.0) g/dL Hct (35-47) % MCV (78-100) fL MCH (26-32) pg MCHC (32-36) g/dL RDW (11.5-14.0) % Plt Count (150-450) x10^3/uL MPV (7.5-11.0) fL Puncture Site pCO2 (35-45) mmHg pO2 (75-100) mmHg Base Excess (-2.0-2.0) O2 Saturation (94-100) g/dF ABG pH (7.35-7.45) ABG HCO3 (22-28) ABG O2 Sat (Measured) (95-100) % Timmy Test A-a Gradient a/A Ratio Hemoglobin Carboxyhemoglobin (0.0-6.9) % THgb Methemoglobin (1.4-1.5) % Temperature C POC O2 Flow Rate % Sodium (137-145) mmol/L Potassium (3.5-5.1) mmol/L Chloride (98-107) mmol/L Carbon Dioxide (22-30) mmol/L Anion Gap (5-15) MEQ/L BUN (7-17) mg/dL Creatinine (0.52-1.04) mg/dL Estimated GFR ML/MIN Glucose (74-106) mg/dL POC Glucometer 156 H 116 H (74 to 106) mg/dL Calcium (8.4-10.2) mg/dL Total Bilirubin (0.2-1.3) mg/dL AST (14-36) U/L ALT (0-35) U/L Alkaline Phosphatase (38-126) U/L Serum Total Protein (6.3-8.2) g/dL Albumin (3.5-5.0) g/dL Slides for Path Review YES 10/02/23 10/02/23 10/02/23 Range/Units 04:40 04:40 06:54 WBC 10.8 H (4.0-10.5) x10^3/uL RBC 4.01 L (4.1-5.4) x10^6/uL Hgb 10.2 L (12.0-16.0) g/dL Hct 36.6 (35-47) % MCV 91.3 (78-100) fL MCH 25.4 L (26-32) pg MCHC 27.9 L (32-36) g/dL RDW 16.4 H (11.5-14.0) % Plt Count 163 (150-450) x10^3/uL MPV 10.0 (7.5-11.0) fL Puncture Site pCO2 (35-45) mmHg pO2 (75-100) mmHg Base Excess (-2.0-2.0) O2 Saturation (94-100) g/dF ABG pH (7.35-7.45) ABG HCO3 (22-28) ABG O2 Sat (Measured) (95-100) % Timmy Test A-a Gradient a/A Ratio Hemoglobin Carboxyhemoglobin (0.0-6.9) % THgb Methemoglobin (1.4-1.5) % Temperature C POC O2 Flow Rate % Sodium 138 (137-145) mmol/L Potassium 4.9 (3.5-5.1) mmol/L Chloride 101 (98-107) mmol/L Carbon Dioxide 36 H (22-30) mmol/L Anion Gap 5.9 (5-15) MEQ/L BUN 33 H (7-17) mg/dL Creatinine 1.06 H (0.52-1.04) mg/dL Estimated GFR 60.9 ML/MIN Glucose 145 H (74-106) mg/dL POC Glucometer 132 H (74 to 106) mg/dL Calcium 8.4 (8.4-10.2) mg/dL Total Bilirubin 0.70 (0.2-1.3) mg/dL AST 24 (14-36) U/L ALT 27 (0-35) U/L Alkaline Phosphatase 71 (38-126) U/L Serum Total Protein 6.4 (6.3-8.2) g/dL Albumin 3.3 L (3.5-5.0) g/dL Slides for Path Review YES 10/02/23 10/02/23 Range/Units 09:52 11:00 WBC (4.0-10.5) x10^3/uL RBC (4.1-5.4) x10^6/uL Hgb (12.0-16.0) g/dL Hct (35-47) % MCV (78-100) fL MCH (26-32) pg MCHC (32-36) g/dL RDW (11.5-14.0) % Plt Count (150-450) x10^3/uL MPV (7.5-11.0) fL Puncture Site rt rad pCO2 88 H* (35-45) mmHg pO2 80 (75-100) mmHg Base Excess 8.9 H (-2.0-2.0) O2 Saturation 94.8 (94-100) g/dF ABG pH 7.25 L* (7.35-7.45) ABG HCO3 38.6 H* (22-28) ABG O2 Sat (Measured) 96.9 (95-100) % Timmy Test y A-a Gradient 38 a/A Ratio 0.68 Hemoglobin 10.5 Carboxyhemoglobin 1.3 (0.0-6.9) % THgb Methemoglobin 0.8 L (1.4-1.5) % Temperature 37.0 C POC O2 Flow Rate 32 % Sodium (137-145) mmol/L Potassium 5.2 H (3.5-5.1) mmol/L Chloride (98-107) mmol/L Carbon Dioxide (22-30) mmol/L Anion Gap (5-15) MEQ/L BUN (7-17) mg/dL Creatinine (0.52-1.04) mg/dL Estimated GFR ML/MIN Glucose (74-106) mg/dL POC Glucometer 112 H (74 to 106) mg/dL Calcium (8.4-10.2) mg/dL Total Bilirubin (0.2-1.3) mg/dL AST (14-36) U/L ALT (0-35) U/L Alkaline Phosphatase (38-126) U/L Serum Total Protein (6.3-8.2) g/dL Albumin (3.5-5.0) g/dL Slides for Path Review Multi-Disciplinary Progress Notes: Multi-Disciplinary Progress Notes 10/01/23 15:01 Case Management Note by Jewels Pate S/W BERNARD ABOUT TRANSPORT TO FACILITY D/T [facility]. THEY REPORT THEY CAN COME GET PATIENT TOMORROW (TODAY THEY HAVE NO TRANSPORTATION AVAILABLE). THEY WILL BRING A SLING FROM THEIR FACILITY SO [facility] CAN BE USED TO HELP TO GET PATIENT TO AND FROM CHAIR Initialized on 10/01/23 15:01 - END OF NOTE Assessment/Plan (1) COPD exacerbation Current Visit: Yes Status: Acute Code(s): J44.1 - CHRONIC OBSTRUCTIVE PULMONARY DISEASE W (ACUTE) EXACERBATION (2) Acute hypoxic respiratory failure Current Visit: Yes Status: Acute Code(s): J96.01 - ACUTE RESPIRATORY FAILURE WITH HYPOXIA (3) Candidiasis Current Visit: Yes Status: Acute Code(s): B37.9 - CANDIDIASIS, UNSPECIFIED (4) Wounds, multiple Current Visit: Yes Status: Acute Code(s): T07.XXXA - UNSPECIFIED MULTIPLE INJURIES, INITIAL ENCOUNTER (5) Restless legs Current Visit: Yes Status: Chronic (6) DM type 2 (diabetes mellitus, type 2) Current Visit: Yes Status: Chronic (7) Morbid obesity Current Visit: No Status: Chronic Code(s): E66.01 - MORBID (SEVERE) OBESITY DUE TO EXCESS CALORIES (8) Cardiomegaly Current Visit: Yes Status: Acute Code(s): I51.7 - CARDIOMEGALY (9) LISETTE (acute kidney injury) Current Visit: Yes Status: Acute Code(s): N17.9 - ACUTE KIDNEY FAILURE, UNSPECIFIED (10) Foul smelling urine Current Visit: Yes Status: Acute Code(s): R82.90 - UNSPECIFIED ABNORMAL FINDINGS IN URINE (11) Bacterial vaginosis Current Visit: Yes Status: Acute Code(s): N76.0 - ACUTE VAGINITIS; B96.89 - OTH BACTERIAL AGENTS THE CAUSE OF DISEASES CLASSD ELSWHR (12) Physical deconditioning Current Visit: Yes Status: Acute Assessment & Plan: (1) COPD exacerbation - krys Alvarado steriods - 5lNC 97% - BL RA, reports she has had home O2 in the past at home 09/27 - 4LNC 09/28 - RT eval for home O2 needs- she did qualify for home O2 - rehab placement- case management - azithromycin, steroids - 3LNC- 93% 09/29 - 2lNC 99% - awaiting rehab 09/30 - Stop azithromycin - 3LNC- 93% 10/01 - 1lNC 93% Code(s): J44.1 - CHRONIC OBSTRUCTIVE PULMONARY DISEASE W (ACUTE) EXACERBATION (2) Acute hypoxic respiratory failure Current Visit: Yes Status: Acute Assessment & Plan: - on 5LNC - chest XR 09/26 Portable apical lordotic chest demonstrates new cardiomegaly obscuring left mid to lower lung. Remaining visualized lungs are inflated and clear. Bony thorax intact 09/27 - 4lNC 09/28 - 3lNC - CPAP at night 2/20 - new onset confusion d/t elevated CO2- pt did not wear c-pap last night - Abg - placed on bipap - will repeat ABG later today. Code(s): J96.01 - ACUTE RESPIRATORY FAILURE WITH HYPOXIA (3) Candidiasis Current Visit: Yes Status: Acute Assessment & Plan: - under BL breast and abd skin folds - nystatin powder - pillow cases under affected areas Code(s): B37.9 - CANDIDIASIS, UNSPECIFIED (4) Wounds, multiple Current Visit: Yes Status: Acute Assessment & Plan: - multiple wounds in various stages of healing on body- see pics in chart - perineal and sacral wounds- ramachandran placed, pt incontinent - Podiatry consulted for right foot wound - plan is for I& D tomorrow of right heal wound in OR - NPO at midnight - Narcotic pain control 09/27 - I& D scheduled for today with podiatry - arterial US 09/27 Impression: Limited exam due to patient body habitus. Nonvisualization left/right deep femoral and left posterior tibial arteries. Scattered arteriosclerotic disease bilaterally without critical stenosis/obstruction. - VD BLLE 09/27 Impression: Again Limited exam due to body habitus. Left and right legs again grossly negative for DVT. 09/28 - BL legs and feet wrapped by podiatry - POD #1 I&D right foot wound - F/u with podiatry OP - weight bearing as tolerated - Keflex sent to pharmacy - wounds improving - ramachandran removed 09/29 - POD #3 - Wound culture right foot gram +, Staphyloccous simulans - Zyvox started - possibly d/c on Bactrim per culture results- will discuss with podiatry tomorrow. 10/01 - Podiatry set in OP antibiotics and blood culture reviewed 10/02 - Hold Cymbalta while taking Zyvox as it can cause increased confusion Code(s): T07.XXXA - UNSPECIFIED MULTIPLE INJURIES, INITIAL ENCOUNTER (5) Restless legs Current Visit: Yes Status: Chronic Assessment & Plan: - continue ropinirole (6) DM type 2 (diabetes mellitus, type 2) Current Visit: Yes Status: Chronic Assessment & Plan: - A1C pending - accuchecks ac/hs - does not take any medication at home - Const carb diet - Humalog s/s 09/27 - A1C 5.23- controlled (7) Morbid obesity Current Visit: No Status: Chronic Assessment & Plan: - advised diet and exercise control Code(s): E66.01 - MORBID (SEVERE) OBESITY DUE TO EXCESS CALORIES (8) Cardiomegaly Current Visit: Yes Status: Acute Assessment & Plan: - seen on CXR and new - Echo- EJ per equipment maint tech 51% - Will need Op cardiology f/u Code(s): I51.7 - CARDIOMEGALY (9) LISETTE (acute kidney injury) Current Visit: Yes Status: Acute Assessment & Plan: - Creat 1.14, baseline 0.97 - IVF - Levaquin stopped 09/30 - LISETTE worse Creat 1.34, baseline normal -stopped meloxicam, stopped antibiotics and changed to zyvox - unable to obtain post void bladder scan 10/01 - LISETTE improved and almost back to baseline Code(s): N17.9 - ACUTE KIDNEY FAILURE, UNSPECIFIED (10) Foul smelling urine Current Visit: Yes Status: Acute Assessment & Plan: - UA with C&S -negative - D/C ramachandran 09/30 - repeat UA negative Code(s): R82.90 - UNSPECIFIED ABNORMAL FINDINGS IN URINE (11) Bacterial vaginosis Current Visit: Yes Status: Acute Assessment & Plan: - metronidazole started Code(s): N76.0 - ACUTE VAGINITIS; B96.89 - OTH BACTERIAL AGENTS THE CAUSE OF DISEASES CLASSD ELSWHR (12) Physical deconditioning Current Visit: Yes Status: Acute Assessment & Plan: - pt was sitting on the bedside commode and unable to get up, several people had to assist to get her back in bed. - PT/OT - Rehab placement Code(s): R53.81 - OTHER MALAISE VTE: SCD's PPI: protonix Next of Kin: Ellis Shaw [phone] Code status: Full D/c plan: tomorrow Code(s): R53.81 - OTHER MALAISE
[2023-10-02 16:22] LABS: A-aADO2 75; ABG HEMOGLOBIN 10.8; ABG POTASSIUM 4.8 (3.5-5.1); ARTERIAL BLD GAS O2 SATURATION 97.1 % (95-100); ARTERIAL BLOOD GAS BASE EXCESS 10.1 (-2.0-2.0); ARTERIAL BLOOD GAS FIO2 35 %; ARTERIAL BLOOD GAS PO2 78 mmHg (75-100); ARTERIAL BLOOD GAS pH 7.31 (7.35-7.45); CARBOXYHEMOGLOBIN 1.6 % THgb (0.0-6.9); HCO3- 38.8 (22-28); HGB O2 SAT 94.6 g/dF (94-100); paO2 pAO1 0.51
[2023-10-02 16:23] LABS: ALLEN TEST OK? y; ARTERIAL BLOOD GAS PCO2 77 mmHg (35-45)
[2023-10-02] MEDS: Dextrose 5%-NS IV Solution 1000 ML 1,000 ML IV SCH (17:03)
[2023-10-03 04:35] LABS: Hematocrit 32.9 % (35-47); Hemoglobin 9.3 g/dL (12.0-16.0); Mean Cell Volume 90.1 fL (78-100); Mean Corpuscular Hemoglobin 25.5 pg (26-32); Mean Corpuscular Hgb Concent. 28.3 g/dL (32-36); Mean Platelet Volume 11.3 fL (7.5-11.0); Platelet Count 121 x10^3/uL (150-450); Red Blood Count 3.65 x10^6/uL (4.1-5.4); Red Cell Distribution Width 16.4 % (11.5-14.0); White Blood Count 10.8 x10^3/uL (4.0-10.5)
[2023-10-03 04:50] LABS: ALBUMIN 2.8 g/dL (3.5-5.0); ANION GAP 5.8 MEQ/L (5-15); BILIRUBIN,TOTAL 1.1 mg/dL (0.2-1.3); Calcium 8.4 mg/dL (8.4-10.2); Creatinine 1 0.89 mg/dL (0.52-1.04); EST GLOMERULAR FILTRATION RATE 75.1 ML/MIN; Potassium 4.8 mmol/L (3.5-5.1); Total Protein 5.7 g/dL (6.3-8.2)
[2023-10-03 04:57] LABS: A-aADO2 66; ABG HEMOGLOBIN 9.8; ARTERIAL BLD GAS O2 SATURATION 98.6 % (95-100); ARTERIAL BLOOD GAS BASE EXCESS 11.9 (-2.0-2.0); ARTERIAL BLOOD GAS FIO2 35 %; ARTERIAL BLOOD GAS PO2 91 mmHg (75-100); ARTERIAL BLOOD GAS pH 7.34 (7.35-7.45); CARBOXYHEMOGLOBIN 1.9 % THgb (0.0-6.9); HCO3- 39.9 (22-28); Methhemoglobin 0.6 % (1.4-1.5); paO2 pAO1 0.58
[2023-10-03 04:59] LABS: ARTERIAL BLOOD GAS PCO2 74 mmHg (35-45)
[2023-10-03 05:00] LABS: ALLEN TEST OK? YES; ARTERIAL BLOOD GAS VENT MODE avaps; ARTERIAL BLOOD GAS VENT RATE 16 /MIN; BIPAP(E) 6
[2023-10-03 05:45] LABS: ABG SITE RIGHT RADIAL
--- NOTE | 2023-10-03 09:01 | XRAY ---
Indication: Short of breath. Comparison: July 26, 2024 Portable chest rotated again with cardiomegaly. New diffuse vessel congestion, pulmonary edema, and small left effusion favoring cardiac decompensation/CHF. Superimposed pneumonia not completely excluded.
[2023-10-03 14:03] LABS: A-aADO2 58; ABG HEMOGLOBIN 10.3; ABG POTASSIUM 4.7 (3.5-5.1); ARTERIAL BLD GAS O2 SATURATION 98.8 % (95-100); ARTERIAL BLOOD GAS BASE EXCESS 13.3 (-2.0-2.0); ARTERIAL BLOOD GAS FIO2 35 %; ARTERIAL BLOOD GAS PO2 108 mmHg (75-100); ARTERIAL BLOOD GAS pH 7.39 (7.35-7.45); CARBOXYHEMOGLOBIN 1.8 % THgb (0.0-6.9); HCO3- 40.6 (22-28); HGB O2 SAT 95.9 g/dF (94-100); Methhemoglobin 1.1 % (1.4-1.5); paO2 pAO1 0.65
[2023-10-03 14:04] LABS: ARTERIAL BLOOD GAS PCO2 67 mmHg (35-45); ARTERIAL BLOOD GAS VENT MODE AVAPS; ARTERIAL BLOOD GAS VENT RATE 16 /MIN
[2023-10-03 14:05] LABS: ABG SITE LEFT RADIAL; ALLEN TEST OK? Yes; ARTERIAL BLOOD GAS PEEP 8 cmH2O; BIPAP(E) 8
[2023-10-03] MEDS ORDERED: HUMALOG SQ PRN (14:32)
--- NOTE | 2023-10-03 14:33 | PCM.NOTE ---
Date and Time: 10/03/23 1426 Subjective Assessment: 09/26/23 is a 58 year old female with PMHX of morbid obesity, oxygen use at home, type II DM, COPD, HTN, hyperlipidemia, CHF, migraines, PE, OA, and peripheral neuropathy. She was brought in the ER from primary care office with hypoxia and increasing shortness of breath. Patient reports she has been feeling short of breath since July which gets worse with exertion and better with resting with some nonproductive cough and chest soreness at times. Patient oxygen saturation was dropping in the 80s, placed on 3 L oxygen and O2 increased to 92% in ER. Patient denies fever or chills. Patient was originally at primary care office for right heel ulcer which is nonhealing. Denies any fall or trauma. She has multiple sores on her body including, BL legs, BL feet, and buttock. She appears to have a yeast infection under BL breast and abd folds. These areas are also excoriated. Pillow cases have been placed to aide with healing. Podiatry consulted and arterial duplex ordered. She is concerned if she has medicade or not ad this is her reason for not f/u with her care sooner. Case management to discuss with pt. She states she used to go to [facility] for her depression and has not been since February. She would like to go back if possible. She denies suicidal or homicidal thoughts at this time. She is currently on 5LNC. Levaquin, steroids, and duonebs started in the ER for COPD exacerbation, will continue same plan of care. She is c/o pain of right heal 03/22. Songfor has worked well for her in the past. She denies CP, abd pain, N/V/D. 09/27/23 Pt resting in bed. She explains she has been anxious all night about the foot procedure. She is concerned as she may not be able to have anesthesia. She is worried that if she is not asleep she may have a lot of pain and cannot handle this. Advised her to discuss her concerns with podiatry today. She explains her mouth is extremely dry and Biotene addeded to med list. Labs do show some LISETTE today and IVF started, She is on 4LNC, lungs sounds are clear. She denies CP, SOB, abd. pain, N/V/D. 09/28/23 Pt resting in bed. Podiatry is ok with d/c and f/u OP. She did have an I&D procedure yesterday. BL legs and feet wrapped. She is to be weight bearing as tolerated. Per podiatry will need to d/c on Keflex. Ramachandran Urine appears dark, UC with C&S sent. Per nurse urine is foul smelling. Ramachandran removed and pt got up to bed side commode and was unable to get up. It took several people to get her back in bed. Case management discussed with pt and she is willing to go to rehab. She is psychologically stable but frustrated with deconditioning. She is c/o vaginal fishy odor, metronidazole started for vaginosis. Will continue IVF for LISETTE. Continue steroids and antibiotics for COPD exacerbation. She denies CP, SOB, Abd. pain, N/V/D. 09/29/23 Pt resting in bed. She is awaiting rehab placement. She is feeling and breathing has improved. UC pending. Wound culture came back gram positive, sensitivity pending. She denies any further concerns at this time. 09/30/23 Pt resting in bed on continued 4lNC. SOB has improved. LISETTE is a bit worse today. Stopped Meloxicam. Unable to check a post void bladder scan due to body habitus. Antibiotics changed to Zyvox per wound culture results. Can be on Bactrim at d/c per sensitivity. Will discuss with podiatry tomorrow. Pt awaiting rehab placement and most likely to d/c tomorrow. . She continue to have some right foot pain but pain medication helps to keep pain controlled. She denies any further concerns at this time. 10/01 Pt is resting in bed. She explains she feels rather out of it today. Her labs have improved overall, LISETTE - improved. Rehab is ready and she will d/c today. P odiatry aware of blood cultures and changed medications to d/c with. Rehab to [facility] O2 needs 2:2 chronic COPD. Pt denies any further concerns at this time. 10/02 Pt was unable to be discharged yesterday as pt required bariatric equipment and there was not a transportation service available to provide this. Pt Had some intermittent confusion last night. Will hold Cymbalta for now as combined with zyvox can cause this. LISETTE almost resolved. Plan was for [facility] to [facility] today but they do have a cpap for her to wear at night until tomorrow. Pt will stay another night for this. Pt awake and alert but not oriented this AM. Ct head ordered bu unable to do because of her size. ABG done and Co2 elevated. Per nurse pt did not keep cpap on at night. Pt placed on bipap. Will recheck ABG later today. Pt denies Cp, Abd. pain, N/V/D. 10/03/23 Pt resting in bed. She is more awake and alert today. She is A&O x2. Seroquel stopped. This is still not her baseline. ABG checked this afternoon and improving except bicarb increasing, acetazolamide started BID. Pulmonology consulted. Ramachandran placed. She denies any concerns. Plan is to d/c tomorrow if she is more awake and alert and ABG improved. - Review of Systems Constitutional: No Fever, No Chills Eyes: No Symptoms Ears, Nose, & Throat: No Symptoms Respiratory: No Cough, No Short Of Breath Cardiac: No Chest Pain, No Edema, No Syncope Abdominal/Gastrointestinal: No Abdominal Pain, No Nausea, No Vomiting, No Diarrhea Genitourinary Symptoms: No Dysuria Musculoskeletal: No Back Pain, No Neck Pain Skin: No Rash Neurological: No Dizziness, No Focal Weakness, No Sensory Changes Psychological: No Symptoms Endocrine: No Symptoms Hematologic/Lymphatic: No Symptoms Immunological/Allergic: No Symptoms Objective Exam General Appearance: no apparent distress, alert, obese Neurologic Exam: alert, cooperative, sensation nml, other (A&O x2), No motor deficits Skin Exam: normal color, warm, dry Wound Assessment: Skin/Wound Assessment Wound/Incision Assessment Start: 09/26/23 16:14 Text: Status: Active Freq: Q6H Protocol: Document 10/03/23 14:00 MAURIZIO (Rec: 10/03/23 14:08 MAURIZIO [id number]) Wound/Incision Assessment Left Foot Wound Assessment Shift Assessment Dressing Status Dry & Intact Drainage Amount None Comment UNNABOOT CHANGED TODAY PER DR. QUIROZ'S NURSE, JERAMY TO ASSESS WOUND Right Foot Wound Assessment Shift Assessment Dressing Status Dry & Intact Drainage Amount None Comment UNABOOT CHANGED TODAY PER DR. QUIROZ'S NURSE, UNABLE TO ASSESS WOUND AT THIS TIME Left Posterior Thigh Wound Assessment Shift Assessment Wound Type Pressure Ulcer Comment MULPITPLE HEALING STAGE II AND STAGE III SHEARING PRESSURE ULCERS, BARRIER CREAM APPLIED , PT ON AIR MATRESS AND WEIGHT SHIFT WITH PILLOWS Right Posterior Thigh Wound Assessment Shift Assessment Wound Type Pressure Ulcer Drainage Amount None Comment 2 HEALING STAGE III SHEARING PRESSURE ULCERS NOTED, BARRIER CREAM APPLIED, PT ON AIR MATRESS AND WEIGHT SHIFT WITH PILLOWS Medial Other Wound Assessment Shift Assessment Wound Type REDNESS/EXCORIATION Wound Stage Non Pressure Wound Comment UNDR BILATERAL BREASTS, ABDOMINAL FOLDS AND AVELINO AREA Eye Exam: PERRL, EOMI, eyes nml inspection Ears, Nose, Throat Exam: normal ENT inspection, pharynx normal, moist mucous membranes Neck Exam: normal inspection, non-tender, supple, full range of motion Respiratory Exam: normal breath sounds, lungs clear, No respiratory distress Cardiovascular Exam: regular rate/rhythm, normal heart sounds Gastrointestinal/Abdomen Exam: soft, No tenderness, No mass Extremity Exam: normal inspection, normal range of motion Back Exam: normal inspection, normal range of motion, No CVA tenderness, No vertebral tenderness Pelvic Exam: deferred Rectal Exam: deferred OBJECTIVE DATA Vital Signs: Vital Signs - 24 hr Temp Pulse Resp BP BP Pulse Ox 10/03/23 11:00 62 19 160/73 100 10/03/23 07:00 97.3 F 68 16 147/74 97 10/03/23 05:23 68 18 96 10/03/23 03:33 97.4 F 66 24 128/60 96 10/02/23 23:41 98.1 F 72 17 125/66 98 10/02/23 19:46 97.9 F 70 20 174/81 99 10/02/23 19:05 74 19 96 10/02/23 16:00 97.4 F 61 20 137/69 99 Pain Assessment - Last Documented Pain Intensity 0 Pain [facility] Intake and Output: Intake & Output 10/01/23 10/02/23 10/03/23 10/04/23 11:59 11:59 11:59 11:59 Intake Total 5723 120 1180 60 Balance 5723 120 1180 60 Lab Results: Lab Results-Last 24 Hours 10/02/23 10/02/23 10/02/23 Range/Units 16:00 16:08 20:48 WBC (4.0-10.5) x10^3/uL RBC (4.1-5.4) x10^6/uL Hgb (12.0-16.0) g/dL Hct (35-47) % MCV (78-100) fL MCH (26-32) pg MCHC (32-36) g/dL RDW (11.5-14.0) % Plt Count (150-450) x10^3/uL MPV (7.5-11.0) fL Puncture Site ltrad pCO2 77 H* (35-45) mmHg pO2 78 (75-100) mmHg Base Excess 10.1 H (-2.0-2.0) O2 Saturation 94.6 (94-100) g/dF ABG pH 7.31 L (7.35-7.45) ABG HCO3 38.8 H* (22-28) ABG O2 Sat (Measured) 97.1 (95-100) % Timmy Test y A-a Gradient 75 a/A Ratio 0.51 Hemoglobin 10.8 Carboxyhemoglobin 1.6 (0.0-6.9) % THgb Methemoglobin 1.0 L (1.4-1.5) % Potassium 4.8 (3.5-5.1) Temperature 37.0 C POC O2 Flow Rate 35 % Vent Mode Vent Rate /MIN PEEP cmH2O Expiratory BiPAP Sodium (137-145) mmol/L Chloride (98-107) mmol/L Carbon Dioxide (22-30) mmol/L Anion Gap (5-15) MEQ/L BUN (7-17) mg/dL Creatinine (0.52-1.04) mg/dL Estimated GFR ML/MIN Glucose (74-106) mg/dL POC Glucometer 87 84 (74 to 106) mg/dL Calcium (8.4-10.2) mg/dL Total Bilirubin (0.2-1.3) mg/dL AST (14-36) U/L ALT (0-35) U/L Alkaline Phosphatase (38-126) U/L Serum Total Protein (6.3-8.2) g/dL Albumin (3.5-5.0) g/dL 10/03/23 10/03/23 10/03/23 Range/Units 04:00 04:00 04:00 WBC 10.8 H (4.0-10.5) x10^3/uL RBC 3.65 L (4.1-5.4) x10^6/uL Hgb 9.3 L (12.0-16.0) g/dL Hct 32.9 L (35-47) % MCV 90.1 (78-100) fL MCH 25.5 L (26-32) pg MCHC 28.3 L (32-36) g/dL RDW 16.4 H (11.5-14.0) % Plt Count 121 L (150-450) x10^3/uL MPV 11.3 H (7.5-11.0) fL Puncture Site RIGHT RADIAL pCO2 74 H* (35-45) mmHg pO2 91 (75-100) mmHg Base Excess 11.9 H (-2.0-2.0) O2 Saturation 96.0 (94-100) g/dF ABG pH 7.34 L (7.35-7.45) ABG HCO3 39.9 H* (22-28) ABG O2 Sat (Measured) 98.6 (95-100) % Timmy Test YES A-a Gradient 66 a/A Ratio 0.58 Hemoglobin 9.8 Carboxyhemoglobin 1.9 (0.0-6.9) % THgb Methemoglobin 0.6 L (1.4-1.5) % Potassium 5.0 4.8 (3.5-5.1) Temperature 37.0 C POC O2 Flow Rate 35 % Vent Mode avaps Vent Rate 16 /MIN PEEP cmH2O Expiratory BiPAP 6 Sodium 136 L (137-145) mmol/L Chloride 99 (98-107) mmol/L Carbon Dioxide 36 H (22-30) mmol/L Anion Gap 5.8 (5-15) MEQ/L BUN 28 H (7-17) mg/dL Creatinine 0.89 (0.52-1.04) mg/dL Estimated GFR 75.1 ML/MIN Glucose 140 H (74-106) mg/dL POC Glucometer (74 to 106) mg/dL Calcium 8.4 (8.4-10.2) mg/dL Total Bilirubin 1.10 (0.2-1.3) mg/dL AST 16 (14-36) U/L ALT 20 (0-35) U/L Alkaline Phosphatase 61 (38-126) U/L Serum Total Protein 5.7 L (6.3-8.2) g/dL Albumin 2.8 L (3.5-5.0) g/dL 10/03/23 10/03/23 10/03/23 Range/Units 06:59 11:37 13:43 WBC (4.0-10.5) x10^3/uL RBC (4.1-5.4) x10^6/uL Hgb (12.0-16.0) g/dL Hct (35-47) % MCV (78-100) fL MCH (26-32) pg MCHC (32-36) g/dL RDW (11.5-14.0) % Plt Count (150-450) x10^3/uL MPV (7.5-11.0) fL Puncture Site LEFT RADIAL pCO2 67 H* (35-45) mmHg pO2 108 H (75-100) mmHg Base Excess 13.3 H (-2.0-2.0) O2 Saturation 95.9 (94-100) g/dF ABG pH 7.39 (7.35-7.45) ABG HCO3 40.6 H* (22-28) ABG O2 Sat (Measured) 98.8 (95-100) % Timmy Test Yes A-a Gradient 58 a/A Ratio 0.65 Hemoglobin 10.3 Carboxyhemoglobin 1.8 (0.0-6.9) % THgb Methemoglobin 1.1 L (1.4-1.5) % Potassium 4.7 (3.5-5.1) Temperature 37.0 C POC O2 Flow Rate 35 % Vent Mode AVAPS Vent Rate 16 /MIN PEEP 8 cmH2O Expiratory BiPAP 8 Sodium (137-145) mmol/L Chloride (98-107) mmol/L Carbon Dioxide (22-30) mmol/L Anion Gap (5-15) MEQ/L BUN (7-17) mg/dL Creatinine (0.52-1.04) mg/dL Estimated GFR ML/MIN Glucose (74-106) mg/dL POC Glucometer 146 H 125 H (74 to 106) mg/dL Calcium (8.4-10.2) mg/dL Total Bilirubin (0.2-1.3) mg/dL AST (14-36) U/L ALT (0-35) U/L Alkaline Phosphatase (38-126) U/L Serum Total Protein (6.3-8.2) g/dL Albumin (3.5-5.0) g/dL Radiology Exams: Radiology Procedures Category Date Time Status CHEST 1 VIEW (PORTABLE) Stat Exams 10/03/23 07:25 Completed Multi-Disciplinary Progress Notes: Multi-Disciplinary Progress Notes 10/03/23 13:05 Respiratory Note by Hyacinth Auguste Placed patient back on bipap at this time. Initialized on 10/03/23 13:05 - END OF NOTE 10/03/23 06:04 Respiratory Note by Radha Calix 10/03/2023 0551 ABG CRITICAL RESULTS WERE CALLED TO TELEMED DR. Rosa GARCIA. REPORTING ERROR STATES DR. FORMAN. Initialized on 10/03/23 06:04 - END OF NOTE 10/03/23 02:15 Respiratory Note by Kailey Zepeda Patient continues to adjust mask on Bipap causing a leak. Moisturized lips and placed small size mask to see if patient tolerates better. Tolerating well at this time. Initialized on 10/03/23 02:15 - END OF NOTE Assessment/Plan (1) COPD exacerbation Current Visit: Yes Status: Acute Code(s): J44.1 - CHRONIC OBSTRUCTIVE PULMONARY DISEASE W (ACUTE) EXACERBATION (2) Acute hypoxic respiratory failure Current Visit: Yes Status: Acute Code(s): J96.01 - ACUTE RESPIRATORY FAILURE WITH HYPOXIA (3) Candidiasis Current Visit: Yes Status: Acute Code(s): B37.9 - CANDIDIASIS, UNSPECIFIED (4) Wounds, multiple Current Visit: Yes Status: Acute Code(s): T07.XXXA - UNSPECIFIED MULTIPLE INJURIES, INITIAL ENCOUNTER (5) Restless legs Current Visit: Yes Status: Chronic (6) DM type 2 (diabetes mellitus, type 2) Current Visit: Yes Status: Chronic (7) Morbid obesity Current Visit: No Status: Chronic Code(s): E66.01 - MORBID (SEVERE) OBESITY DUE TO EXCESS CALORIES (8) Cardiomegaly Current Visit: Yes Status: Acute Code(s): I51.7 - CARDIOMEGALY (9) LISETTE (acute kidney injury) Current Visit: Yes Status: Acute Code(s): N17.9 - ACUTE KIDNEY FAILURE, UNSPECIFIED (10) Foul smelling urine Current Visit: Yes Status: Acute Code(s): R82.90 - UNSPECIFIED ABNORMAL FINDINGS IN URINE (11) Bacterial vaginosis Current Visit: Yes Status: Acute Code(s): N76.0 - ACUTE VAGINITIS; B96.89 - OTH BACTERIAL AGENTS THE CAUSE OF DISEASES CLASSD ELSWHR (12) Physical deconditioning Current Visit: Yes Status: Acute Assessment & Plan: (1) COPD exacerbation - Levaquin, duonebs, steriods - 5lNC 97% - BL RA, reports she has had home O2 in the past at home 09/27 - 4LNC 09/28 - RT eval for home O2 needs- she did qualify for home O2 - rehab placement- case management - azithromycin, steroids - 3LNC- 93% 09/29 - 2lNC 99% - awaiting rehab 09/30 - Stop azithromycin - 3LNC- 93% 10/01 - 1lNC 93% 10/02 - placed on bipap - ABG 10/03 - Bipap - stopped seroquel Code(s): J44.1 - CHRONIC OBSTRUCTIVE PULMONARY DISEASE W (ACUTE) EXACERBATION (2) Acute hypoxic respiratory failure Current Visit: Yes Status: Acute Assessment & Plan: - on 5LNC - chest XR 09/26 Portable apical lordotic chest demonstrates new cardiomegaly obscuring left mid to lower lung. Remaining visualized lungs are inflated and clear. Bony thorax intact 09/27 - 4lNC 09/28 - 3lNC - CPAP at night 10/02 - new onset confusion d/t elevated CO2- pt did not wear c-pap last night - Abg - placed on bipap - will repeat ABG later today. 10/03 - cpap - Bipap - Pulm consult - bicarb increased- Acetazolamide started Code(s): J96.01 - ACUTE RESPIRATORY FAILURE WITH HYPOXIA (3) Candidiasis Current Visit: Yes Status: Acute Assessment & Plan: - under BL breast and abd skin folds - nystatin powder - pillow cases under affected areas Code(s): B37.9 - CANDIDIASIS, UNSPECIFIED (4) Wounds, multiple Current Visit: Yes Status: Acute Assessment & Plan: - multiple wounds in various stages of healing on body- see pics in chart - perineal and sacral wounds- ramachandran placed, pt incontinent - Podiatry consulted for right foot wound - plan is for I& D tomorrow of right heal wound in OR - NPO at midnight - Narcotic pain control 09/27 - I& D scheduled for today with podiatry - arterial US 09/27 Impression: Limited exam due to patient body habitus. Nonvisualization left/right deep femoral and left posterior tibial arteries. Scattered arteriosclerotic disease bilaterally without critical stenosis/obstruction. - VD BLLE 09/27 Impression: Again Limited exam due to body habitus. Left and right legs again grossly negative for DVT. 09/28 - BL legs and feet wrapped by podiatry - POD #1 I&D right foot wound - F/u with podiatry OP - weight bearing as tolerated - Keflex sent to pharmacy - wounds improving - ramachandran removed 09/29 - POD #3 - Wound culture right foot gram +, Staphyloccous simulans - Zyvox started - possibly d/c on Bactrim per culture results- will discuss with podiatry tomorr ow. 10/01 - Podiatry set in OP antibiotics and blood culture reviewed 10/02 - Hold Cymbalta while taking Zyvox as it can cause increased confusion Code(s): T07.XXXA - UNSPECIFIED MULTIPLE INJURIES, INITIAL ENCOUNTER (5) Restless legs Current Visit: Yes Status: Chronic Assessment & Plan: - continue ropinirole (6) DM type 2 (diabetes mellitus, type 2) Current Visit: Yes Status: Chronic Assessment & Plan: - A1C pending - accuchecks ac/hs - does not take any medication at home - Const carb diet - Humalog s/s 09/27 - A1C 5.23- controlled (7) Morbid obesity Current Visit: No Status: Chronic Assessment & Plan: - advised diet and exercise control Code(s): E66.01 - MORBID (SEVERE) OBESITY DUE TO EXCESS CALORIES (8) Cardiomegaly Current Visit: Yes Status: Acute Assessment & Plan: - seen on CXR and new - Echo- EJ per photonics technician 51% - Will need Op cardiology f/u Code(s): I51.7 - CARDIOMEGALY (9) LISETTE (acute kidney injury) Current Visit: Yes Status: Acute Assessment & Plan: - Creat 1.14, baseline 0.97 - IVF - Levaquin stopped 09/30 - LISETTE worse Creat 1.34, baseline normal -stopped meloxicam, stopped antibiotics and changed to zyvox - unable to obtain post void bladder scan 10/01 - LISETTE improved and almost back to baseline Code(s): N17.9 - ACUTE KIDNEY FAILURE, UNSPECIFIED (10) Foul smelling urine Current Visit: Yes Status: Acute Assessment & Plan: - UA with C&S -negative - D/C ramachandran 09/30 - repeat UA negative Code(s): R82.90 - UNSPECIFIED ABNORMAL FINDINGS IN URINE (11) Bacterial vaginosis Current Visit: Yes Status: Acute Assessment & Plan: - metronidazole started Code(s): N76.0 - ACUTE VAGINITIS; B96.89 - OTH BACTERIAL AGENTS THE CAUSE OF DISEASES CLASSD ELSWHR (12) Physical deconditioning Current Visit: Yes Status: Acute Assessment & Plan: - pt was sitting on the bedside commode and unable to get up, several people had to assist to get her back in bed. - PT/OT - Rehab placement Code(s): R53.81 - OTHER MALAISE VTE: SCD's PPI: protonix Next of Kin: Ellis Shaw [phone] Code status: Full D/c plan: tomorrow Code(s): R53.81 - OTHER MALAISE
[2023-10-03] MEDS: ELIQUIS 2.5 MG TABLET PO SCH (21:52)
[2023-10-03] MEDS ORDERED: ENOXAPARIN SODIUM SQ SCH (22:00)
[2023-10-03] MEDS: DIAMOX 500 MG INJ IV SCH (22:00)
[2023-10-04] MEDS ORDERED: Sterile H2O 10 ml IJ ONE ×2 (02:07→11:47)
[2023-10-04 05:23] LABS: Hematocrit 33.3 % (35-47); Hemoglobin 9.4 g/dL (12.0-16.0); Mean Corpuscular Hemoglobin 25.4 pg (26-32); Mean Corpuscular Hgb Concent. 28.2 g/dL (32-36); Mean Platelet Volume 10.7 fL (7.5-11.0); Platelet Count 133 x10^3/uL (150-450); Red Cell Distribution Width 16.4 % (11.5-14.0); White Blood Count 9.7 x10^3/uL (4.0-10.5)
[2023-10-04 05:41] LABS: ALBUMIN 3.1 g/dL (3.5-5.0); Calcium 8.4 mg/dL (8.4-10.2); Creatinine 1 0.94 mg/dL (0.52-1.04); EST GLOMERULAR FILTRATION RATE 70.3 ML/MIN; Potassium 4.2 mmol/L (3.5-5.1); Total Protein 6.1 g/dL (6.3-8.2)
[2023-10-04 06:52] LABS: ANION GAP 6.2 MEQ/L (5-15)
--- NOTE | 2023-10-04 08:04 | CONS ---
CONSULT DATE: 10/03/2023 REASON FOR CONSULT: Evaluation of chronic respiratory failure. HISTORY: The history is obtained from reviewing current record. The patient is a poor historian. Alice Downs is a 58-year-old morbidly obese woman who has been admitted with progressive shortness of breath that started in July. The patient had been admitted to [facility]urg floor. Her ABG's did show acute on chronic hypercapnic respiratory failure. The patient has been treated with noninvasive ventilation with improvement. The blood gases performed today have shown near normalization with pH of 7.39, pO2 of 67 and pO2 of 108. The patient does have a CPAP at home. Her compliance is unknown. At the time of my evaluation, the patient is awake. She is confused but is able to answer simple questions and appears comfortable. PAST MEDICAL HISTORY: Positive for history of chronic obstructive pulmonary disease, congestive heart failure, hypertension, dyslipidemia, prior history of pulmonary embolization details unavailable. Obstructive sleep apnea, peripheral neuropathy with morbid obesity and diabetes mellitus. PAST SURGICAL HISTORY: No recent surgery. PERSONAL AND SOCIAL HISTORY: The patient lives independently although she is going to be discharged to a nursing home facility. MEDICATIONS: Medications are reviewed. ALLERGIES: ALBUTEROL. CODEINE. PENICILLIN. VANCOMYCIN. LATEX. ADHESIVE. PINEAPPLE. PHYSICAL EXAMINATION: This is a morbidly obese woman comfortable in bed. Vital signs noted. Currently on nasal cannula at 2 liters. HEENT: Normocephalic. Oral exam shows small oropharynx. NECK: Short, supple. CVS: First and second heart sounds are normal, regular, rhythmic. RESPIRATORY: Shows diminished breath sounds although clear anteriorly. ABDOMEN: Obese. EXTREMITIES: Lower extremities show chronic edema. Her legs are wrapped. LABORATORY DATA AND TESTS: Labs, x-rays, radiology tests and ABG's were all reviewed. ASSESSMENT: This is a 58-year-old morbidly obese woman admitted with: 1) Acute on chronic hypercapnic respiratory failure corrected with noninvasive ventilation. 2) Chronic obstructive pulmonary disease. 3) Sleep apnea. 4) Obesity. 5) Hyperventilation. 6) Comorbidities listed above. RECOMMENDATIONS: 1) Continue noninvasive ventilation. 2) The patient currently has a CPAP and would benefit from switching this to BIPAP upon discharge. She is currently going to a nursing facility and would benefit from continued use of noninvasive ventilation at night and PRN during the day. 3) Continue bronchodilators. 4) Her current medications indicate she is not on any anticoagulation. She would benefit from DVT prophylaxis. 5) Will follow up in outpatient setting upon discharge from nursing home facility. Discussed with nursing staff.
[2023-10-04 08:17] LABS: A-aADO2 42; ABG HEMOGLOBIN 9.9; ABG POTASSIUM 4.4 (3.5-5.1); ARTERIAL BLD GAS O2 SATURATION 98.8 % (95-100); ARTERIAL BLOOD GAS BASE EXCESS 13.5 (-2.0-2.0); ARTERIAL BLOOD GAS FIO2 36 %; ARTERIAL BLOOD GAS PO2 112 mmHg (75-100); ARTERIAL BLOOD GAS pH 7.32 (7.35-7.45); CARBOXYHEMOGLOBIN 1.6 % THgb (0.0-6.9); HCO3- 42.2 (22-28); HGB O2 SAT 96.5 g/dF (94-100); Methhemoglobin 0.7 % (1.4-1.5); paO2 pAO1 0.73
[2023-10-04 08:18] LABS: ABG SITE rt rad; ALLEN TEST OK? y; ARTERIAL BLOOD GAS PCO2 82 mmHg (35-45)
--- NOTE | 2023-10-04 12:14 | PCM.NOTE ---
Date and Time: 10/04/23 1204 Subjective Assessment: 09/26/23 is a 58 year old female with PMHX of morbid obesity, oxygen use at home, type II DM, COPD, HTN, hyperlipidemia, CHF, migraines, PE, OA, and peripheral neuropathy. She was brought in the ER from primary care office with hypoxia and increasing shortness of breath. Patient reports she has been feeling short of breath since July which gets worse with exertion and better with resting with some nonproductive cough and chest soreness at times. Patient oxygen saturation was dropping in the 80s, placed on 3 L oxygen and O2 increased to 92% in ER. Patient denies fever or chills. Patient was originally at primary care office for right heel ulcer which is nonhealing. Denies any fall or trauma. She has multiple sores on her body including, BL legs, BL feet, and buttock. She appears to have a yeast infection under BL breast and abd folds. These areas are also excoriated. Pillow cases have been placed to aide with healing. Podiatry consulted and arterial duplex ordered. She is concerned if she has medicade or not ad this is her reason for not f/u with her care sooner. Case management to discuss with pt. She states she used to go to [facility] for her depression and has not been since February. She would like to go back if possible. She denies suicidal or homicidal thoughts at this time. She is currently on 5LNC. Levaquin, steroids, and duonebs started in the ER for COPD exacerbation, will continue same plan of care. She is c/o pain of right heal 03/22. [employer] has worked well for her in the past. She denies CP, abd pain, N/V/D. 09/27/23 Pt resting in bed. She explains she has been anxious all night about the foot procedure. She is concerned as she may not be able to have anesthesia. She is worried that if she is not asleep she may have a lot of pain and cannot handle this. Advised her to discuss her concerns with podiatry today. She explains her mouth is extremely dry and Biotene addeded to med list. Labs do show some LISETTE today and IVF started, She is on 4LNC, lungs sounds are clear. She denies CP, SOB, abd. pain, N/V/D. 09/28/23 Pt resting in bed. Podiatry is ok with d/c and f/u OP. She did have an I&D procedure yesterday. BL legs and feet wrapped. She is to be weight bearing as tolerated. Per podiatry will need to d/c on Keflex. Ramachandran Urine appears dark, UC with C&S sent. Per nurse urine is foul smelling. Ramachandran removed and pt got up to bed side commode and was unable to get up. It took several people to get her back in bed. Case management discussed with pt and she is willing to go to rehab. She is psychologically stable but frustrated with deconditioning. She is c/o vaginal fishy odor, metronidazole started for vaginosis. Will continue IVF f or LISETTE. Continue steroids and antibiotics for COPD exacerbation. She denies CP, SOB, Abd. pain, N/V/D. 09/29/23 Pt resting in bed. She is awaiting rehab placement. She is feeling and breathing has improved. UC pending. Wound culture came back gram positive, sensitivity pending. She denies any further concerns at this time. 09/30/23 Pt resting in bed on continued 4lNC. SOB has improved. LISETTE is a bit worse today. Stopped Meloxicam. Unable to check a post void bladder scan due to body habitus. Antibiotics changed to Zyvox per wound culture results. Can be on Bactrim at d/c per sensitivity. Will discuss with podiatry tomorrow. Pt awaiting rehab placement and most likely to d/c tomorrow. . She continue to have some right foot pain but pain medication helps to keep pain controlled. She denies any further concerns at this time. 10/01 Pt is resting in bed. She explains she feels rather out of it today. Her labs have improved overall, LISETTE - improved. Rehab is ready and she will d/c today. Podiatry aware of blood cultures and changed medications to d/c with. Rehab to [facility] for home O2 needs 2:2 chronic COPD. Pt denies any further concerns at this time. 10/02 Pt was unable to be discharged yesterday as pt required bariatric equipment and there was not a transportation service available to provide this. Pt Had some intermittent confusion last night. Will hold Cymbalta for now as combined with zyvox can cause this. LISETTE almost resolved. Plan was for pt to tx to [facility] rehab today but they do have a cpap for her to wear at night until tomorrow. Pt will stay another night for this. Pt awake and alert but not oriented this AM. Ct head ordered bu unable to do because of her size. ABG done and Co2 elevated. Per nurse pt did not keep cpap on at night. Pt placed on bipap. Will recheck ABG later today. Pt denies Cp, Abd. pain, N/V/D. 10/03/23 Pt resting in bed. She is more awake and alert today. She is A&O x2. Seroquel stopped. This is still not her baseline. ABG checked this afternoon and improving except bicarb increasing, acetazolamide started BID. Pulmonology consulted. Ramachandran placed. She denies any concerns. Plan is to d/c tomorrow if she is more awake and alert and ABG improved. 10/04/23 Pt resting in bed. She is A&O x3 today. Pulmonology came in to see pt last night and bipap settings were changed. He also requested pt to be on eliquid 5mg BID. She was started on therapeutic lovenox yesterday as d-dimer slightly elevated and this was stopped and changed to eliquis. She is unable to have a CTA or VQ scan due to her weight and size. SCD's were ordered on admission. She does have a hx of PE in 2007 and she explains her felt she did not need this med and stopped it. She was never placed back on the medication by her providers. Abg did not improve today however pulmonology explained she needs to be sitting up and moving around to improve. He is ok with her dc today. However, the rehab facility does not have a bipap machine available until tomorrow so she will have to wait until then. We will have her sit up in the bed today with chair settings. She denies any further concerns at this time. - Review of Systems Constitutional: No Fever, No Chills Eyes: No Symptoms Ears, Nose, & Throat: No Symptoms Respiratory: No Cough, No Short Of Breath Cardiac: No Chest Pain, No Edema, No Syncope Abdominal/Gastrointestinal: No Abdominal Pain, No Nausea, No Vomiting, No Diarrhea Genitourinary Symptoms: No Dysuria Musculoskeletal: No Back Pain, No Neck Pain Skin: No Rash Neurological: No Dizziness, No Focal Weakness, No Sensory Changes Psychological: No Symptoms Endocrine: No Symptoms Hematologic/Lymphatic: No Symptoms Immunological/Allergic: No Symptoms Objective Exam General Appearance: obese Wound Assessment: Skin/Wound Assessment Wound/Incision Assessment Start: 09/26/23 16:14 Text: Status: Active Freq: Q6H Protocol: Document 10/04/23 08:00 MAURIZIO (Rec: 10/04/23 08:31 MAURIZIO [id number]) Wound/Incision Assessment Left Foot Wound Assessment Shift Assessment Dressing Status Dry & Intact Drainage Amount None Comment UNNABOOT IN PLACE AT THIS TIME , NO DRAINAGE NOTED,UNABLE TO ASSESS WOUND Right Foot Wound Assessment Shift Assessment Dressing Status Dry & Intact Drainage Amount None Comment UNNABOOT IN PLACE AT THIS TIME , NO DRAINAGE NOTED,UNABLE TO ASSESS WOUND Left Posterior Thigh Wound Assessment Shift Assessment Wound Type Pressure Ulcer Comment MULPITPLE HEALING STAGE II AND STAGE III SHEARING PRESSURE ULCERS, BARRIER CREAM WILL BE APPLIED, PT ON AIR MATRESS Right Posterior Thigh Wound Assessment Shift Assessment Wound Type Pressure Ulcer Drainage Amount None Comment 2 HEALING STAGE III SHEARING PRESSURE ULCERS NOTED, BARRIER CREAM WILL BE APPLIED, PT ON AIR MATRESS Medial Other Wound Assessment Shift Assessment Wound Type REDNESS/EXCORIATION Wound Stage Non Pressure Wound Comment UNDR BILATERAL BREASTS, ABDOMINAL FOLDS AND AVELINO AREA, WILL APPLY POWDER ORDERED OBJECTIVE DATA Vital Signs: Vital Signs - 24 hr Temp Pulse Resp BP BP Pulse Ox 10/04/23 11:00 96.4 F 58 L 16 141/70 98 10/04/23 07:03 62 16 97 10/04/23 07:00 61 20 141/69 98 10/04/23 03:00 98.5 F 65 16 136/66 98 10/03/23 23:59 97.1 F 71 16 164/75 95 10/03/23 19:00 97.6 F 79 18 136/80 93 L 10/03/23 15:00 97.3 F 71 20 142/89 95 Pain Assessment - Last Documented Pain Intensity 0 Pain Scale Used 0-10 Pain Scale Intake and Output: Intake & Output 10/02/23 10/03/23 10/04/23 10/05/23 11:59 11:59 11:59 11:59 Intake Total 120 1180 1207 Output Total 1600 Balance 120 1180 -393 Lab Results: Lab Results-Last 24 Hours 10/03/23 10/03/23 10/03/23 Range/Units 13:43 15:52 16:10 WBC (4.0-10.5) x10^3/uL RBC (4.1-5.4) x10^6/uL Hgb (12.0-16.0) g/dL Hct (35-47) % MCV (78-100) fL MCH (26-32) pg MCHC (32-36) g/dL RDW (11.5-14.0) % Plt Count (150-450) x10^3/uL MPV (7.5-11.0) fL D-Dimer 0.90 H* (0.0-0.50) mg/L Puncture Site LEFT RADIAL pCO2 67 H* (35-45) mmHg pO2 108 H (75-100) mmHg Base Excess 13.3 H (-2.0-2.0) O2 Saturation 95.9 (94-100) g/dF ABG pH 7.39 (7.35-7.45) ABG HCO3 40.6 H* (22-28) ABG O2 Sat (Measured) 98.8 (95-100) % Timmy Test Yes A-a Gradient 58 a/A Ratio 0.65 Hemoglobin 10.3 Carboxyhemoglobin 1.8 (0.0-6.9) % THgb Methemoglobin 1.1 L (1.4-1.5) % Potassium 4.7 (3.5-5.1) Temperature 37.0 C POC O2 Flow Rate 35 % Vent Mode AVAPS Vent Rate 16 /MIN PEEP 8 cmH2O Expiratory BiPAP 8 Sodium (137-145) mmol/L Chloride (98-107) mmol/L Carbon Dioxide (22-30) mmol/L Anion Gap (5-15) MEQ/L BUN (7-17) mg/dL Creatinine (0.52-1.04) mg/dL Estimated GFR ML/MIN Glucose (74-106) mg/dL POC Glucometer 136 H (74 to 106) mg/dL Calcium (8.4-10.2) mg/dL Total Bilirubin (0.2-1.3) mg/dL AST (14-36) U/L ALT (0-35) U/L Alkaline Phosphatase (38-126) U/L Serum Total Protein (6.3-8.2) g/dL Albumin (3.5-5.0) g/dL 10/03/23 10/04/23 10/04/23 Range/Units 20:43 04:43 04:43 WBC 9.7 (4.0-10.5) x10^3/uL RBC 3.70 L (4.1-5.4) x10^6/uL Hgb 9.4 L (12.0-16.0) g/dL Hct 33.3 L (35-47) % MCV 90.0 (78-100) fL MCH 25.4 L (26-32) pg MCHC 28.2 L (32-36) g/dL RDW 16.4 H (11.5-14.0) % Plt Count 133 L (150-450) x10^3/uL MPV 10.7 (7.5-11.0) fL D-Dimer (0.0-0.50) mg/L Puncture Site pCO2 (35-45) mmHg pO2 (75-100) mmHg Base Excess (-2.0-2.0) O2 Saturation (94-100) g/dF ABG pH (7.35-7.45) ABG HCO3 (22-28) ABG O2 Sat (Measured) (95-100) % Timmy Test A-a Gradient a/A Ratio Hemoglobin Carboxyhemoglobin (0.0-6.9) % THgb Methemoglobin (1.4-1.5) % Potassium 4.2 (3.5-5.1) Temperature C POC O2 Flow Rate % Vent Mode Vent Rate /MIN PEEP cmH2O Expiratory BiPAP Sodium 136 L (137-145) mmol/L Chloride 98 (98-107) mmol/L Carbon Dioxide 36 H (22-30) mmol/L Anion Gap 6.2 (5-15) MEQ/L BUN 22 H (7-17) mg/dL Creatinine 0.94 (0.52-1.04) mg/dL Estimated GFR 70.3 ML/MIN Glucose 117 H (74-106) mg/dL POC Glucometer 125 H (74 to 106) mg/dL Calcium 8.4 (8.4-10.2) mg/dL Total Bilirubin 1.00 (0.2-1.3) mg/dL AST 14 (14-36) U/L ALT 17 (0-35) U/L Alkaline Phosphatase 61 (38-126) U/L Serum Total Protein 6.1 L (6.3-8.2) g/dL Albumin 3.1 L (3.5-5.0) g/dL 10/04/23 10/04/23 10/04/23 Range/Units 07:06 07:26 11:08 WBC (4.0-10.5) x10^3/uL RBC (4.1-5.4) x10^6/uL Hgb (12.0-16.0) g/dL Hct (35-47) % MCV (78-100) fL MCH (26-32) pg MCHC (32-36) g/dL RDW (11.5-14.0) % Plt Count (150-450) x10^3/uL MPV (7.5-11.0) fL D-Dimer (0.0-0.50) mg/L Puncture Site rt rad pCO2 82 H* (35-45) mmHg pO2 112 H (75-100) mmHg Base Excess 13.5 H (-2.0-2.0) O2 Saturation 96.5 (94-100) g/dF ABG pH 7.32 L (7.35-7.45) ABG HCO3 42.2 H* (22-28) ABG O2 Sat (Measured) 98.8 (95-100) % Timmy Test y A-a Gradient 42 a/A Ratio 0.73 Hemoglobin 9.9 Carboxyhemoglobin 1.6 (0.0-6.9) % THgb Methemoglobin 0.7 L (1.4-1.5) % Potassium 4.4 (3.5-5.1) Temperature 37.0 C POC O2 Flow Rate 36 % Vent Mode Vent Rate /MIN PEEP cmH2O Expiratory BiPAP Sodium (137-145) mmol/L Chloride (98-107) mmol/L Carbon Dioxide (22-30) mmol/L Anion Gap (5-15) MEQ/L BUN (7-17) mg/dL Creatinine (0.52-1.04) mg/dL Estimated GFR ML/MIN Glucose (74-106) mg/dL POC Glucometer 106 105 (74 to 106) mg/dL Calcium (8.4-10.2) mg/dL Total Bilirubin (0.2-1.3) mg/dL AST (14-36) U/L ALT (0-35) U/L Alkaline Phosphatase (38-126) U/L Serum Total Protein (6.3-8.2) g/dL Albumin (3.5-5.0) g/dL Radiology Exams: Radiology Procedures Category Date Time Status CHEST 1 VIEW (PORTABLE) Stat Exams 10/03/23 07:25 Completed Multi-Disciplinary Progress Notes: Multi-Disciplinary Progress Notes 10/03/23 18:33 Respiratory Note by Angelica Taylor Rounded with Dr. Smith. New orders Bipap 26/03 back-up rate 14, with 36% fio2. Pt to wear at night and prn during the day. Dr. Smith states her ABG qualifies her for home Bipap use. Initialized on 10/03/23 18:33 - END OF NOTE 10/03/23 15:22 Case Management Note by Jewels Pate S/W EM FROM [facility]- THEY ARE READY FOR PATIENT WHEN WE ARE READY TO SEND HER. Initialized on 10/03/23 15:22 - END OF NOTE 10/03/23 13:05 Respiratory Note by Hyacinth Auguste Placed patient back on bipap at this time. Initialized on 10/03/23 13:05 - END OF NOTE Assessment/Plan (1) COPD exacerbation Current Visit: Yes Status: Acute Code(s): J44.1 - CHRONIC OBSTRUCTIVE PULMONARY DISEASE W (ACUTE) EXACERBATION (2) Acute hypoxic respiratory failure Current Visit: Yes Status: Acute Code(s): J96.01 - ACUTE RESPIRATORY FAILURE WITH HYPOXIA (3) Candidiasis Current Visit: Yes Status: Acute Code(s): B37.9 - CANDIDIASIS, UNSPECIFIED (4) Wounds, multiple Current Visit: Yes Status: Acute Code(s): T07.XXXA - UNSPECIFIED MULTIPLE INJURIES, INITIAL ENCOUNTER (5) Restless legs Current Visit: Yes Status: Chronic (6) DM type 2 (diabetes mellitus, type 2) Current Visit: Yes Status: Chronic (7) Morbid obesity Current Visit: No Status: Chronic Code(s): E66.01 - MORBID (SEVERE) OBESITY DUE TO EXCESS CALORIES (8) Cardiomegaly Current Visit: Yes Status: Acute Code(s): I51.7 - CARDIOMEGALY (9) LISETTE (acute kidney injury) Current Visit: Yes Status: Acute Code(s): N17.9 - ACUTE KIDNEY FAILURE, UNSPECIFIED (10) Foul smelling urine Current Visit: Yes Status: Acute Code(s): R82.90 - UNSPECIFIED ABNORMAL FINDINGS IN URINE (11) Bacterial vaginosis Current Visit: Yes Status: Acute Code(s): N76.0 - ACUTE VAGINITIS; B96.89 - OTH BACTERIAL AGENTS THE CAUSE OF DISEASES CLASSD ELSWHR (12) Physical deconditioning Current Visit: Yes Status: Acute Assessment & Plan: (1) COPD exacerbation - krys Alvarado, steriods - 5lNC 97% - BL RA, reports she has had home O2 in the past at home 09/27 - 4LNC 09/28 - RT eval for home O2 needs- she did qualify for home O2 - rehab placement- case management - azithromycin, steroids - 3LNC- 93% 09/29 - 2lNC 99% - awaiting rehab 09/30 - Stop azithromycin - 3LNC- 93% 10/01 - 1lNC 93% 10/02 - placed on bipap - ABG 10/03 - Bipap - stopped seroquel - Pulm consulted and changed setting 10/04 - pt awake and alert - abg not improved - will have pt sit up in bed more in chair setting Code(s): J44.1 - CHRONIC OBSTRUCTIVE PULMONARY DISEASE W (ACUTE) EXACERBATION (2) Acute hypoxic respiratory failure Current Visit: Yes Status: Acute Assessment & Plan: - on 5LNC - chest XR 09/26 Portable apical lordotic chest demonstrates new cardiomegaly obscuring left mid to lower lung. Remaining visualized lungs are inflated and clear. Bony thorax intact 09/27 - 4lNC 09/28 - 3lNC - CPAP at night 10/02 - new onset confusion d/t elevated CO2- pt did not wear c-pap last night - Abg - placed on bipap - will repeat ABG later today. 10/03 - cpap - Bipap - Pulm consult - bicarb increased- Acetazolamide started 10/04 - pt awake and alert - abg not improved - will have pt sit up in bed more in chair setting Code(s): J96.01 - ACUTE RESPIRATORY FAILURE WITH HYPOXIA (3) Candidiasis Current Visit: Yes Status: Acute Assessment & Plan: - under BL breast and abd skin folds - nystatin powder - pillow cases under affected areas Code(s): B37.9 - CANDIDIASIS, UNSPECIFIED (4) Wounds, multiple Current Visit: Yes Status: Acute Assessment & Plan: - multiple wounds in various stages of healing on body- see pics in chart - perineal and sacral wounds- ramachandran placed, pt incontinent - Podiatry consulted for right foot wound - plan is for I& D tomorrow of right heal wound in [place] - NPO at midnight - Narcotic pain control 09/27 - I& D scheduled for today with podiatry - arterial US 09/27 Impression: Limited exam due to patient body habitus. Nonvisualization left/right deep femoral and left posterior tibial arteries. Scattered arteriosclerotic disease bilaterally without critical stenosis/obstruction. - VD BLLE 09/27 Impression: Again Limited exam due to body habitus. Left and right legs again grossly negative for DVT. 09/28 - BL legs and feet wrapped by podiatry - POD #1 I&D right foot wound - F/u with podiatry OP - weight bearing as tolerated - Keflex sent to pharmacy - wounds improving - ramachandran removed 09/29 - POD #3 - Wound culture right foot gram +, Staphyloccous simulans - Zyvox started - possibly d/c on Bactrim per culture results- will discuss with podiatry tomorrow. 10/01 - Podiatry set in OP antibiotics and blood culture reviewed 10/02 - Hold Cymbalta while taking Zyvox as it can cause increased confusion Code(s): T07.XXXA - UNSPECIFIED MULTIPLE INJURIES, INITIAL ENCOUNTER (5) Restless legs Current Visit: Yes Status: Chronic Assessment & Plan: - continue ropinirole (6) DM type 2 (diabetes mellitus, type 2) Current Visit: Yes Status: Chronic Assessment & Plan: - A1C pending - accuchecks ac/hs - does not take any medication at home - Const carb diet - Humalog s/s 09/27 - A1C 5.23- controlled (7) Morbid obesity Current Visit: No Status: Chronic Assessment & Plan: - advised diet and exercise control Code(s): E66.01 - MORBID (SEVERE) OBESITY DUE TO EXCESS CALORIES (8) Cardiomegaly Current Visit: Yes Status: Acute Assessment & Plan: - seen on CXR and new - Echo- EJ per air quality technician 51% - Will need Op cardiology f/u Code(s): I51.7 - CARDIOMEGALY (9) LISETTE (acute kidney injury) Current Visit: Yes Status: Acute Assessment & Plan: - Creat 1.14, baseline 0.97 - IVF - Levaquin stopped 09/30 - LISETTE worse Creat 1.34, baseline normal -stopped meloxicam, stopped antibiotics and changed to zyvox - unable to obtain post void bladder scan 10/01 - LISETTE improved and almost back to baseline 10/03 - resolved Code(s): N17.9 - ACUTE KIDNEY FAILURE, UNSPECIFIED (10) Foul smelling urine Current Visit: Yes Status: Acute Assessment & Plan: - UA with C&S -negative - D/C ramachandran 09/30 - repeat UA negative Code(s): R82.90 - UNSPECIFIED ABNORMAL FINDINGS IN URINE (11) Bacterial vaginosis Current Visit: Yes Status: Acute Assessment & Plan: - metronidazole started Code(s): N76.0 - ACUTE VAGINITIS; B96.89 - OTH BACTERIAL AGENTS THE CAUSE OF DISEASES CLASSD ELSWHR (12) Physical deconditioning Current Visit: Yes Status: Acute Assessment & Plan: - pt was sitting on the bedside commode and unable to get up, several people had to assist to get her back in bed. - PT/OT - Rehab placement Code(s): R53.81 - OTHER MALAISE Code(s): R53.81 - OTHER MALAISE (13) D-dimer, elevated Current Visit: Yes Status: Acute Assessment & Plan: - D-dimer 0.90 10/03 -Pulmonology came in to see pt last night and bipap settings were changed. He also requested pt to be on eliquis 5mg BID. She was started on therapeutic lovenox yesterday as d-dimer slightly elevated and this was stopped and changed to eliquis. She is unable to have a CTA or VQ scan due to her weight and size. SCD's were ordered on admission. She does have a hx of PE in 2007 and she explains her felt she did not need this med and stopped it. She was never placed back on the medication by her providers. VTE: eliquis PPI: protonix Next of Kin: Ellis Shaw [phone] Code status: Full D/c plan: tomorrow Code(s): R79.89 - OTHER SPECIFIED ABNORMAL FINDINGS OF BLOOD CHEMISTRY
[2023-10-05 04:54] LABS: Hematocrit 34.6 % (35-47); Hemoglobin 9.6 g/dL (12.0-16.0); Mean Cell Volume 91.1 fL (78-100); Mean Corpuscular Hemoglobin 25.3 pg (26-32); Mean Corpuscular Hgb Concent. 27.7 g/dL (32-36); Mean Platelet Volume 9.9 fL (7.5-11.0); Platelet Count 121 x10^3/uL (150-450); Red Cell Distribution Width 16.7 % (11.5-14.0); White Blood Count 9.9 x10^3/uL (4.0-10.5)
[2023-10-05 05:18] LABS: ALBUMIN 2.9 g/dL (3.5-5.0); BILIRUBIN,TOTAL 1.1 mg/dL (0.2-1.3); Calcium 8.2 mg/dL (8.4-10.2); Creatinine 1 1.05 mg/dL (0.52-1.04); EST GLOMERULAR FILTRATION RATE 61.6 ML/MIN; Potassium 4.1 mmol/L (3.5-5.1); Total Protein 5.9 g/dL (6.3-8.2)
[2023-10-05 05:36] LABS: ANION GAP 6.1 MEQ/L (5-15)
[2023-10-05 07:17] LABS: Slide Review YES
--- NOTE | 2023-10-05 07:26 | PCM.DS ---
Discharge Summary Date of Admission: 09/27/23 10:00 Date of Discharge: 10/05/23 Admitting Physician: NICK CALL MD Consults: Consults on Case 09/26/23 15:01 Consult Podiatry ROUTINE 09/26/23 16:14 Case Management SDOH DC Needs Assessment ROUTINE 09/27/23 10:40 Nutritional Consult ROUTINE 10/03/23 07:33 Consult Pulmonology ROUTINE Primary Care Provider: JOLEEN BECKER Allergies Allergies albuterol Allergy (Intermediate, Verified 11/04/15 09:13) Difficulty Breathing adhesive Allergy (Verified 04/28/15 22:26) codeine [Codeine] Allergy (Verified 04/28/15 22:26) Headache INCREASE HTN latex Allergy (Verified 04/28/15 22:26) Penicillins Allergy (Verified 04/28/15 22:26) Nausea and Vomiting SWELLING pineapple [Pineapple] Allergy (Verified 04/28/15 22:26) vancomycin Adverse Reaction (Mild, Verified 11/07/15 17:40) Itching Hospital Summary - Hospital Course Hospital Course: 09/26/23 is a 58 year old female with PMHX of morbid obesity, oxygen use at home, type II DM, COPD, HTN, hyperlipidemia, CHF, migraines, PE, OA, and peripheral neuropathy. She was brought in the ER from primary care office with hypoxia and increasing shortness of breath. Patient reports she has been feeling short of breath since July which gets worse with exertion and better with resting with some nonproductive cough and chest soreness at times. Patient oxygen saturation was dropping in the 80s, placed on 3 L oxygen and O2 increased to 92% in ER. Patient denies fever or chills. Patient was originally at primary care office for right heel ulcer which is nonhealing. Denies any fall or trauma. She has multiple sores on her body including, BL legs, BL feet, and buttock. She appears to have a yeast infection under BL breast and abd folds. These areas are also excoriated. Pillow cases have been placed to aide with healing. Podiatry consulted and arterial duplex ordered. She is concerned if she has medicade or not ad this is her reason for not f/u with her care [facility]. Case management to discuss with pt. She states she used to go to [facility] for her depression and has not been since February. She would like to go back if possible. She denies suicidal or homicidal thoughts at this time. She is currently on 5LNC. Levaquin, steroids, and duonebs started in the ER for COPD exacerbation, will continue same plan of care. She is c/o pain of right heal 03/22. [employer] has worked well for her in the past. She denies CP, abd pain, N/V/D. 09/27/23 Pt resting in bed. She explains she has been anxious all night about the foot procedure. She is concerned as she may not be able to have anesthesia. She is worried that if she is not asleep she may have a lot of pain and cannot handle this. Advised her to discuss her concerns with podiatry today. She explains her mouth is extremely dry and Biotene addeded to med list. Labs do show some LISETTE today and IVF started, She is on 4LNC, lungs sounds are clear. She denies CP, SOB, abd. pain, N/V/D. 09/28/23 Pt resting in bed. Podiatry is ok with d/c and f/u OP. She did have an I&D procedure yesterday. BL legs and feet wrapped. She is to be weight bearing as tolerated. Per podiatry will need to d/c on Keflex. Ramachandran Urine appears dark, UC with C&S sent. Per nurse urine is foul smelling. Ramachandran removed and pt got up to bed side commode and was unable to get up. It took several people to get her back in bed. Case management discussed with pt and she is willing to go to rehab. She is psychologically stable but frustrated with deconditioning. She is c/o vaginal fishy odor, metronidazole started for vaginosis. Will continue IVF for LISETTE. Continue steroids and antibiotics for COPD exacerbation. She denies CP, SOB, Abd. pain, N/V/D. 09/29/23 Pt resting in bed. She is awaiting rehab placement. She is feeling and breathing has improved. UC pending. Wound culture came back gram positive, sensitivity pending. She denies any further concerns at this time. 09/30/23 Pt resting in bed on continued 4lNC. SOB has improved. LISETTE is a bit worse today. Stopped Meloxicam. Unable to check a post void bladder scan due to body habitus. Antibiotics changed to Zyvox per wound culture results. Can be on Bactrim at d/c per sensitivity. Will discuss with podiatry tomorrow. Pt awaiting rehab placement and most likely to d/c tomorrow. . She continue to have some right foot pain but pain medication helps to keep pain controlled. She denies any further concerns at this time. 10/01 Pt is resting in bed. She explains she feels rather out of it today. Her labs have improved overall, LISETTE - improved. Rehab is ready and she will d/c today. Podiatry aware of blood cultures and changed medications to d/c with. Rehab to [facility] for home O2 needs 2:2 chronic COPD. Pt denies any further concerns at this time. 10/02 Pt was unable to be discharged yesterday as pt required bariatric equipment and there was not a transportation service available to provide this. Pt Had some intermittent confusion last night. Will hold Cymbalta for now as combined with zyvox can cause this. LISETTE almost resolved. Plan was for pt to tx to [facility] rehab today but they do have a cpap for her to wear at night until tomorrow. Pt will stay another night for this. Pt awake and alert but not oriented this AM. Ct head ordered bu unable to do because of her size. ABG done and Co2 elevated. Per nurse pt did not keep cpap on at night. Pt placed on bipap. Will recheck ABG later today. Pt denies Cp, Abd. pain, N/V/D. 10/03/23 Pt resting in bed. She is more awake and alert today. She is A&O x2. Seroquel stopped. This is still not her baseline. ABG checked this afternoon and improving except bicarb increasing, acetazolamide started BID. Pulmonology c onsulted. Ramachandran placed. She denies any concerns. Plan is to d/c tomorrow if she is more awake and alert and ABG improved. 10/04/23 Pt resting in bed. She is A&O x3 today. Pulmonology came in to see pt last night and bipap settings were changed. He also requested pt to be on eliquid 5mg BID. She was started on therapeutic lovenox yesterday as d-dimer slightly elevated and this was stopped and changed to eliquis. She is unable to have a CTA or VQ scan due to her weight and size. SCD's were ordered on admission. She does have a hx of PE in 2007 and she explains her felt she did not need this med and stopped it. She was never placed back on the medication by her providers. Abg did not improve today however pulmonology explained she needs to be sitting up and moving around to improve. He is ok with her dc today. However, the rehab facility does not have a bipap machine available until tomorrow so she will have to wait until then. We will have her sit up in the bed today with chair settings. She denies any further concerns at this time. 10/05/23 Pt awake and alert. Plan is to d/c to [facility] today. She has no further concerns at this time. Labs are stable. - Vitals & Intake/Output Vital Signs: Vital Signs Temperature 96.8 F 10/05/23 07:00 Pulse Rate 58 L 10/05/23 07:00 Respiratory Rate 15 10/05/23 07:00 Blood Pressure 130/70 10/05/23 07:00 O2 Sat by Pulse Oximetry 100 10/05/23 07:00 Intake & Output: Intake & Output 10/02/23 10/03/23 10/04/23 10/05/23 11:59 11:59 11:59 11:59 Intake Total 120 1180 1207 120 Output Total 1600 650 Balance 120 1180 -393 -530 Weight 214.8 kg - Lab Result Diagrams: 10/05/23 04:31 10/05/23 04:31 Lab Results-Last 24 Hrs: Lab Results-Last 24 Hours 10/04/23 10/04/23 10/04/23 Range/Units 07:26 11:08 16:22 WBC (4.0-10.5) x10^3/uL RBC (4.1-5.4) x10^6/uL Hgb (12.0-16.0) g/dL Hct (35-47) % MCV (78-100) fL MCH (26-32) pg MCHC (32-36) g/dL RDW (11.5-14.0) % Plt Count (150-450) x10^3/uL MPV (7.5-11.0) fL Puncture Site rt rad pCO2 82 H* (35-45) mmHg pO2 112 H (75-100) mmHg Base Excess 13.5 H (-2.0-2.0) O2 Saturation 96.5 (94-100) g/dF ABG pH 7.32 L (7.35-7.45) ABG HCO3 42.2 H* (22-28) ABG O2 Sat (Measured) 98.8 (95-100) % Timmy Test y A-a Gradient 42 a/A Ratio 0.73 Hemoglobin 9.9 Carboxyhemoglobin 1.6 (0.0-6.9) % THgb Methemoglobin 0.7 L (1.4-1.5) % Potassium 4.4 (3.5-5.1) Temperature 37.0 C POC O2 Flow Rate 36 % Sodium (137-145) mmol/L Chloride (98-107) mmol/L Carbon Dioxide (22-30) mmol/L Anion Gap (5-15) MEQ/L BUN (7-17) mg/dL Creatinine (0.52-1.04) mg/dL Estimated GFR ML/MIN Glucose (74-106) mg/dL POC Glucometer 105 97 (74 to 106) mg/dL Calcium (8.4-10.2) mg/dL Total Bilirubin (0.2-1.3) mg/dL AST (14-36) U/L ALT (0-35) U/L Alkaline Phosphatase (38-126) U/L Serum Total Protein (6.3-8.2) g/dL Albumin (3.5-5.0) g/dL Slides for Path Review 10/04/23 10/05/23 10/05/23 Range/Units 20:50 04:31 04:31 WBC 9.9 (4.0-10.5) x10^3/uL RBC 3.80 L (4.1-5.4) x10^6/uL Hgb 9.6 L (12.0-16.0) g/dL Hct 34.6 L (35-47) % MCV 91.1 (78-100) fL MCH 25.3 L (26-32) pg MCHC 27.7 L (32-36) g/dL RDW 16.7 H (11.5-14.0) % Plt Count 121 L (150-450) x10^3/uL MPV 9.9 (7.5-11.0) fL Puncture Site pCO2 (35-45) mmHg pO2 (75-100) mmHg Base Excess (-2.0-2.0) O2 Saturation (94-100) g/dF ABG pH (7.35-7.45) ABG HCO3 (22-28) ABG O2 Sat (Measured) (95-100) % Timmy Test A-a Gradient a/A Ratio Hemoglobin Carboxyhemoglobin (0.0-6.9) % THgb Methemoglobin (1.4-1.5) % Potassium 4.1 (3.5-5.1) Temperature C POC O2 Flow Rate % Sodium 136 L (137-145) mmol/L Chloride 97 L (98-107) mmol/L Carbon Dioxide 37 H (22-30) mmol/L Anion Gap 6.1 (5-15) MEQ/L BUN 20 H (7-17) mg/dL Creatinine 1.05 H (0.52-1.04) mg/dL Estimated GFR 61.6 ML/MIN Glucose 105 (74-106) mg/dL POC Glucometer 104 (74 to 106) mg/dL Calcium 8.2 L (8.4-10.2) mg/dL Total Bilirubin 1.10 (0.2-1.3) mg/dL AST 16 (14-36) U/L ALT 15 (0-35) U/L Alkaline Phosphatase 59 (38-126) U/L Serum Total Protein 5.9 L (6.3-8.2) g/dL Albumin 2.9 L (3.5-5.0) g/dL Slides for Path Review YES 10/05/23 Range/Units 06:26 WBC (4.0-10.5) x10^3/uL RBC (4.1-5.4) x10^6/uL Hgb (12.0-16.0) g/dL Hct (35-47) % MCV (78-100) fL MCH (26-32) pg MCHC (32-36) g/dL RDW (11.5-14.0) % Plt Count (150-450) x10^3/uL MPV (7.5-11.0) fL Puncture Site pCO2 (35-45) mmHg pO2 (75-100) mmHg Base Excess (-2.0-2.0) O2 Saturation (94-100) g/dF ABG pH (7.35-7.45) ABG HCO3 (22-28) ABG O2 Sat (Measured) (95-100) % Timmy Test A-a Gradient a/A Ratio Hemoglobin Carboxyhemoglobin (0.0-6.9) % THgb Methemoglobin (1.4-1.5) % Potassium (3.5-5.1) Temperature C POC O2 Flow Rate % Sodium (137-145) mmol/L Chloride (98-107) mmol/L Carbon Dioxide (22-30) mmol/L Anion Gap (5-15) MEQ/L BUN (7-17) mg/dL Creatinine (0.52-1.04) mg/dL Estimated GFR ML/MIN Glucose (74-106) mg/dL POC Glucometer 86 (74 to 106) mg/dL Calcium (8.4-10.2) mg/dL Total Bilirubin (0.2-1.3) mg/dL AST (14-36) U/L ALT (0-35) U/L Alkaline Phosphatase (38-126) U/L Serum Total Protein (6.3-8.2) g/dL Albumin (3.5-5.0) g/dL Slides for Path Review Micro Results-Entire Visit: Microbiology 10/03/23 08:11 Urine Culture - Preliminary Urine, Indwelling Catheter NO GROWTH TO DATE 09/26/23 11:38 Blood Culture - Final Blood 09/26/23 16:43 Wound Culture - Final Heel - Right Staphylococcus Simulans 09/26/23 19:20 Urine Culture - Final Catherized NO GROWTH Accuchecks Date 10/05/23 Date 10/04/23 Date 10/04/23 Date 10/04/23 Time 07:11 Time 21:00 - Radiology Exams Ordered Rad Exams-Entire Visit: Radiology Procedures Category Date Time Status CHEST 1 VIEW (PORTABLE) Stat Exams 10/03/23 07:25 Completed - Procedures and Test Procedures and Tests throughout Hospitalization: Therapy Orders & Screens 09/26/23 11:58 Respiratory Therapy Assessment DAILY Comment: 09/26/23 14:14 Oxygen Nasal Cannula 3 lpm Comment: Respiratory Therapy Consult ONCE Comment: Reason For Exam: 09/26/23 16:02 Respiratory Therapy Assessment DAILY Comment: Diagnosis: copd exacerbation 09/26/23 16:14 OT Screen per Nursing Assess ONCE Comment: Protocol Order Physician Instructions: Greater than 3 points order OT Admission Screening Reason For Exam: Triggered on Admission Diagnosis: copd exacerbation Open Wound/Cellutlitis/Pressure Ulcers: Yes Acute Fx/ORIF/Change in wt bearing status: Yes Severe MUSCULOSKELETAL pain: No ADL Dysfunction: Yes Acute CVA w/Hemiparesis/Hemiplegia: No Decreased Functional Mobility/Strength: Yes Sprain/Strain: No Acute Post-op Mobility Dysfunction: No Total Points: 14 PT Screen per Nursing Assess ONCE Comment: Protocol Order Physician Instructions: Greater than 3 points order PT Admission Screenin Reason For Exam: Triggered on Admission Diagnosis: copd exacerbation Open Wound/Cellutlitis/Pressure Ulcers: Yes Acute Fx/ORIF/Change in wt bearing status: Yes Severe MUSCULOSKELETAL pain: No ADL Dysfunction: Yes Acute CVA w/Hemiparesis/Hemiplegia: No Decreased Functional Mobility/Strength: Yes Sprain/Strain: No Acute Post-op Mobility Dysfunction: No Total Points: 14 RT Screen per Nursing Assess ONCE Comment: Protocol Order Physician Instructions: Greater than 3 points order RT Admission Screen Reason For Exam: Triggered on Admission Diagnosis: copd exacerbation Diagnosis: copd exacerbation Pneumonia: No Home O2: No Asthma: No CHF: Yes Home CPAP/BIPAP: Yes Home Nebs/MDI: No Total Points: 8 09/26/23 17:04 RT Miscellaneous Order ROUTINE Comment: Physician Instructions: Reason For Exam: CPAP at [facility] Diagnosis: copd exacerbation 09/26/23 21:00 BiPap/CPAP ROUTINE Comment: CPAP 16 Diagnosis: copd exacerbation 09/28/23 10:38 Qualify for Home Oxygen TODAY Comment: Diagnosis: copd exacerbation Discharge Exam General Appearance: no apparent distress, alert, obese Neurologic Exam: alert, oriented x 3, cooperative, normal mood/affect, nml cerebellar function, sensation nml, No motor deficits Eye Exam: PERRL, EOMI, eyes nml inspection Ears, Nose, Throat Exam: normal ENT inspection, pharynx normal, moist mucous membranes Neck Exam: normal inspection, non-tender, supple, full range of motion Respiratory Exam: normal breath sounds, lungs clear, No respiratory distress Cardiovascular Exam: regular rate/rhythm, normal heart sounds Gastrointestinal/Abdomen Exam: soft, No tenderness, No mass Pelvic Exam: deferred Rectal Exam: deferred Back Exam: normal inspection, normal range of motion, No CVA tenderness, No vertebral tenderness Extremity Exam: normal inspection, normal range of motion Skin Exam: normal color, warm, dry Wound Assessment: Skin/Wound Assessment Wound/Incision Assessment Start: 09/26/23 16:14 Text: Status: Active Freq: Q6H Protocol: Document 10/05/23 02:00 LB (Rec: 10/05/23 04:34 LB [id number]) Wound/Incision Assessment Left Foot Wound Assessment Shift Assessment Dressing Status Dry & Intact Drainage Amount None Comment UNNABOOT IN PLACE AT THIS TIME , NO DRAINAGE NOTED,UNABLE TO ASSESS WOUND-CONT TO BE TRUE Right Foot Wound Assessment Shift Assessment Dressing Status Dry & Intact Drainage Amount None Comment UNNABOOT IN PLACE AT THIS TIME , NO DRAINAGE NOTED,UNABLE TO ASSESS WOUND -CONT TO BE TRUE Left Posterior Thigh Wound Assessment Shift Assessment Wound Type Pressure Ulcer Comment MULPITPLE HEALING STAGE II AND STAGE III SHEARING PRESSURE ULCERS, BARRIER CREAM APPLIED , PT ON AIR MATTRESS. Right Posterior Thigh Wound Assessment Shift Assessment Wound Type Pressure Ulcer Drainage Amount None Comment 2 HEALING STAGE III SHEARING PRESSURE ULCERS NOTED, BARRIER CREAM APPLIED, PT ON AIR MATRESS- CONT TO BE TRUE Medial Other Wound Assessment Shift Assessment Wound Type REDNESS/EXCORIATION Wound Stage Non Pressure Wound Comment UNDR BILATERAL BREASTS, ABDOMINAL FOLDS AND AVELINO AREA, APPLIED POWDER ORDERED - CONT TO BE TRUE Wound Photo Photo Taken Yes Comment: previously Final Diagnosis/Problem List - Final Discharge Diagnosis/Problem (1) COPD exacerbation Current Visit: Yes Status: Acute Code(s): J44.1 - CHRONIC OBSTRUCTIVE PULMONARY DISEASE W (ACUTE) EXACERBATION (2) Acute hypoxic respiratory failure Current Visit: Yes Status: Acute Code(s): J96.01 - ACUTE RESPIRATORY FAILURE WITH HYPOXIA (3) Candidiasis Current Visit: Yes Status: Acute Code(s): B37.9 - CANDIDIASIS, UNSPECIFIED (4) Wounds, multiple Current Visit: Yes Status: Acute Code(s): T07.XXXA - UNSPECIFIED MULTIPLE INJURIES, INITIAL ENCOUNTER (5) Restless legs Current Visit: Yes Status: Chronic (6) DM type 2 (diabetes mellitus, type 2) Current Visit: Yes Status: Chronic (7) Morbid obesity Current Visit: No Status: Chronic Code(s): E66.01 - MORBID (SEVERE) OBESITY DUE TO EXCESS CALORIES (8) Cardiomegaly Current Visit: Yes Status: Acute Code(s): I51.7 - CARDIOMEGALY (9) LISETTE (acute kidney injury) Current Visit: Yes Status: Acute Code(s): N17.9 - ACUTE KIDNEY FAILURE, UNSPECIFIED (10) Foul smelling urine Current Visit: Yes Status: Acute Code(s): R82.90 - UNSPECIFIED ABNORMAL FINDINGS IN URINE (11) Bacterial vaginosis Current Visit: Yes Status: Acute Code(s): N76.0 - ACUTE VAGINITIS; B96.89 - OTH BACTERIAL AGENTS THE CAUSE OF DISEASES CLASSD [facility] (12) Physical deconditioning Current Visit: Yes Status: Acute Code(s): R53.81 - OTHER MALAISE (13) D-dimer, elevated Current Visit: Yes Status: Acute Assessment & Plan: (1) COPD exacerbation - Levaquin, duonebs, steriods - 5lNC 97% - BL RA, reports she has had home O2 in the past at home 09/27 - 4LNC 09/28 - RT eval for home O2 needs- she did qualify for home O2 - rehab placement- case management - azithromycin, steroids - 3LNC- 93% 09/29 - 2lNC 99% - awaiting rehab 09/30 - Stop azithromycin - 3LNC- 93% 10/01 - 1lNC 93% 10/02 - placed on bipap - ABG 10/03 - Bipap - stopped seroquel - Pulm consulted and changed setting 10/04 - pt awake and alert - abg not improved - will have pt sit up in bed more in chair setting Code(s): J44.1 - CHRONIC OBSTRUCTIVE PULMONARY DISEASE W (ACUTE) EXACERBATION (2) Acute hypoxic respiratory failure Current Visit: Yes Status: Acute Assessment & Plan: - on 5LNC - chest XR 09/26 Portable apical lordotic chest demonstrates new cardiomegaly obscuring left mid to lower lung. Remaining visualized lungs are inflated and clear. Bony thorax intact 09/27 - 4lNC 09/28 - 3lNC - CPAP at night 10/02 - new onset confusion d/t elevated CO2- pt did not wear c-pap last night - Abg - placed on bipap - will repeat ABG later today. 10/03 - cpap - Bipap - Pulm consult - bicarb increased- Acetazolamide started 10/04 - pt awake and alert - abg not improved - will have pt sit up in bed more in chair setting Code(s): J96.01 - ACUTE RESPIRATORY FAILURE WITH HYPOXIA (3) Candidiasis Current Visit: Yes Status: Acute Assessment & Plan: - under BL breast and abd skin folds - nystatin powder - pillow cases under affected areas Code(s): B37.9 - CANDIDIASIS, UNSPECIFIED (4) Wounds, multiple Current Visit: Yes Status: Acute Assessment & Plan: - multiple wounds in various stages of healing on body- see pics in chart - perineal and sacral wounds- ramachandran placed, pt incontinent - Podiatry consulted for right foot wound - plan is for I& D tomorrow of right heal wound in OR - NPO at midnight - Narcotic pain control 09/27 - I& D scheduled for today with podiatry - arterial US 09/27 Impression: Limited exam due to patient body habitus. Nonvisualization left/right deep femoral and left posterior tibial arteries. Scattered arteriosclerotic disease bilaterally without critical stenosis/obstruction. - VD BLLE 09/27 Impression: Again Limited exam due to body habitus. Left and right legs again grossly negative for DVT. 09/28 - BL legs and feet wrapped by podiatry - POD #1 I&D right foot wound - F/u with podiatry OP - weight bearing as tolerated - Keflex sent to pharmacy - wounds improving - ramachandran removed 09/29 - POD #3 - Wound culture right foot gram +, Staphyloccous simulans - Zyvox started - possibly d/c on Bactrim per culture results- will discuss with podiatry tomorrow. 10/01 - Podiatry set in OP antibiotics and blood culture reviewed 10/02 - Hold Cymbalta while taking Zyvox as it can cause increased confusion Code(s): T07.XXXA - UNSPECIFIED MULTIPLE INJURIES, INITIAL ENCOUNTER (5) Restless legs Current Visit: Yes Status: Chronic Assessment & Plan: - continue ropinirole (6) DM type 2 (diabetes mellitus, type 2) Current Visit: Yes Status: Chronic Assessment & Plan: - A1C pending - accuchecks ac/hs - does not take any medication at home - Const carb diet - Humalog s/s 09/27 - A1C 5.23- controlled (7) Morbid obesity Current Visit: No Status: Chronic Assessment & Plan: - advised diet and exercise control Code(s): E66.01 - MORBID (SEVERE) OBESITY DUE TO EXCESS CALORIES (8) Cardiomegaly Current Visit: Yes Status: Acute Assessment & Plan: - seen on CXR and new - Echo- EJ per [employer] technician 51% - Will need Op cardiology f/u Code(s): I51.7 - CARDIOMEGALY (9) LISETTE (acute kidney injury) Current Visit: Yes Status: Acute Assessment & Plan: - Creat 1.14, baseline 0.97 - IVF - Levaquin stopped 09/30 - LISETTE worse Creat 1.34, baseline normal -stopped meloxicam, stopped antibiotics and changed to zyvox - unable to obtain post void bladder scan 10/01 - LISETTE improved and almost back to baseline 10/03 - resolved Code(s): N17.9 - ACUTE KIDNEY FAILURE, UNSPECIFIED (10) Foul smelling urine Current Visit: Yes Status: Acute Assessment & Plan: - UA with C&S -negative - D/C ramachandran 09/30 - repeat UA negative Code(s): R82.90 - UNSPECIFIED ABNORMAL FINDINGS IN URINE (11) Bacterial vaginosis Current Visit: Yes Status: Acute Assessment & Plan: - metronidazole started 10/05 - medication stopped course completed Code(s): N76.0 - ACUTE VAGINITIS; B96.89 - OTH BACTERIAL AGENTS THE [facility] (12) Physical deconditioning Current Visit: Yes Status: Acute Assessment & Plan: - pt was sitting on the bedside commode and unable to get up, several people had to assist to get her back in bed. - PT/OT - Rehab placement Code(s): R53.81 - OTHER MALAISE Code(s): R53.81 - OTHER MALAISE (13) D-dimer, elevated Current Visit: Yes Status: Acute Assessment & Plan: - D-dimer 0.90 10/03 -Pulmonology came in to see pt last night and bipap settings were changed. He also requested pt to be on eliquis 5mg BID. She was started on therapeutic lovenox yesterday as d-dimer slightly elevated and this was stopped and changed to eliquis. She is unable to have a CTA or VQ scan due to her weight and size. SCD's were ordered on admission. She does have a hx of PE in 2007 and she explains her felt she did not need this med and stopped it. She was never placed back on the medication by her providers. Code(s): R79.89 - OTHER SPECIFIED ABNORMAL FINDINGS OF BLOOD CHEMISTRY - Discharge Discharge Date: 10/05/23 Disposition: XFER OTHER Condition: Fair Prescriptions: New Nystatin Powder 15 gm [Nystop Powder 15 gm] 1 gm TP BID 10 Days #1 applic Linezolid 600 mg PO BID 13 Days #25 tablet Apixaban [Eliquis 2.5 mg Tablet] 5 mg PO BID 30 Days #60 tablet Continue Ropinirole 2Mg [Requip 2Mg Tab] 4 mg PO HS Cetirizine HCl [Zyrtec] 10 mg PO DAILY Albuterol Sulfate Mdi [ALBUTEROL/Proair Hfa MDI] 2 puff IH Q4HPRN PRN PRN Reason: Shortness Of Breath/Wheezing Duloxetine HCl 30 mg [Cymbalta 30 MG Capsule] 30 mg PO BID hydrOXYzine pamoate [Hydroxyzine Pamoate] 25 mg PO TID PRN PRN Reason: Anxiety Liraglutide [Victoza 2-Raghav] 1.2 mg SQ DAILY Quetiapine Fumarate 50 mg PO HS ondansetron HCL [Ondansetron HCl] 4 mg PO Q8H PRN PRN Reason: Nausea Meloxicam 15 mg [Meloxicam 15 MG] 15 mg PO DAILY Amlodipine Besylate 5 mg [Norvasc 5 mg] 5 mg PO DAILY Instructions: Nystatin (Topical), Exacerbation of COPD (DC), Cephalexin Additional Instructions: SENIOR LIVING ORDERS: 1800 LINDA DIET ACHS ACCU CHECKS OXYGEN AT 3L/NC BIPAP AT HS AND PRN DURING THE SEE- SEE FAXED PAPERWORK FOR SETTINGS PT/OT EVAL AND TREAT PATIENT CAN BEAR WEIGHT ON RIGHT FOOT TOLERATED WITH SURGICAL SHOE IN PLACE. DRESSING CHANGES M/W/F ON DIANNE LEGS. DRESSING CHANGES FOLLOWS: APPLY IODINE TO WOUNDS ON HEELS BILATERALLY. APPLY ADAPTIC, STERILE 4X4 GAUZE TO WOUNDS APPLY UNNA BOOT BILATERAL FAN FOLDED KERLIX, COBAN WITH MODERATE COMPRESSION. DR. QUIROZ'S OFFICE WILL SEND IN PAIN MED RX TO [facility] ([facility] EVERY 6 HRS) SEE ATTACHED MED LIST Hold Cymbalta while getting Zyvox. Restart when Zyvox completed. Follow up with: RICHIE PETERSON DPM [ACTIVE STAFF] - 10/08/23 9:30 am ODILON VELÁSQUEZ [ACTIVE STAFF] - 11/05/23 9:45 am (Shefali Maxwell ) RYDER MENDOSA NP [NON-STAFF PHY W/O PRIVILEGES] - 10/09/23 2:30 pm (Follow up with MANAGER EXCHANGE for Dr. Krueger, [facility] Cardiology) JOLEEN BECKER NP [Primary Care Provider] - 10/05/23 2:45 pm Forms: Ambulance Transport Record
[2023-10-05 08:10] VITALS: RESP 16
[2023-10-05 11:37] VITALS: BP 124/66; PULSE 60; TEMP 98.2; O2SAT 94
[2023-10-05] MEDS ORDERED: STERILE WATER FOR INJECTION 20 ML IV SCH (12:00)
[2023-10-05] MEDS: Sterile H2O 10 ml IJ SCH (12:34)
[2023-10-05] MEDS: TYLENOL 325 MG PO PRN (13:43)
== END 2023-10-05 13:58 | DRG 166 ==
LOC: ED 10:46 → MED SURG 13:56 → OBSVTOIN 09-27 10:00
PROVIDERS: ADMIT Internal Medicine; ATTEND Internal Medicine
PROC: 0JBR0ZZ Excision of Left Foot Subcutaneous Tissue and Fascia, Open Approach (ICD-10-PCS; principal; 2023-09-27)
PROC: 0JBQ0ZZ Excision of Right Foot Subcutaneous Tissue and Fascia, Open Approach (ICD-10-PCS; 2023-09-27)
PROC: 2W1TX6Z Compression of Left Foot using Pressure Dressing (ICD-10-PCS; 2023-09-27)
PROC: 2W1SX6Z Compression of Right Foot using Pressure Dressing (ICD-10-PCS; 2023-09-27)
DX: J44.1 Chronic obstructive pulmonary disease with (acute) exacerbation (principal); J96.01 Acute respiratory failure with hypoxia; L89.893 Pressure ulcer of other site, stage 3; N17.9 Acute kidney failure, unspecified; B37.9 Candidiasis, unspecified; G25.81 Restless legs syndrome; E66.01 Morbid (severe) obesity due to excess calories; I51.7 Cardiomegaly; R60.0 Localized edema; E78.5 Hyperlipidemia, unspecified; I10 Essential (primary) hypertension; E11.42 Type 2 diabetes mellitus with diabetic polyneuropathy; E11.621 Type 2 diabetes mellitus with foot ulcer; F32.A Depression, unspecified; L89.152 Pressure ulcer of sacral region, stage 2; N76.0 Acute vaginitis; B96.89 Other specified bacterial agents as the cause of diseases classified elsewhere; R82.90 Unspecified abnormal findings in urine; R53.81 Other malaise; I87.2 Venous insufficiency (chronic) (peripheral); I89.0 Lymphedema, not elsewhere classified; D72.829 Elevated white blood cell count, unspecified; Z99.81 Dependence on supplemental oxygen; Z20.828 Contact with and (suspected) exposure to other viral communicable diseases; Z79.899 Other long term (current) drug therapy; Z86.711 Personal history of pulmonary embolism
CPT/HCPCS: 0241U; 11042; 29580; 36000; 36415; 36600; 71045; 80053; 81001; 82375; 82803; 82947; 83036; 83605; 83735; 83880; 84145; 84484; 85025; 85027; 85379; 87040; 87070; 87077; 87086; 87186; 93005; 93041; 93268; 93306; 93925; 93970; 94002; 94003; 94640; 94660; 94760; 94762; 96374; 99223; 99232; 99285; G0378; Q3014; J1120; J1956; J2020; J2930; Q0162; A9270-GY

== ENCOUNTER 2023-11-07 21:48 | Emergency (ER) | payer MEDICARE ==
[2023-11-07 22:19] LABS: Hematocrit 33.6 % (35-47); Hemoglobin 9.9 g/dL (12.0-16.0); Mean Cell Volume 90.6 fL (78-100); Mean Corpuscular Hemoglobin 26.7 pg (26-32); Mean Corpuscular Hgb Concent. 29.5 g/dL (32-36); Mean Platelet Volume 9.3 fL (7.5-11.0); Platelet Count 299 x10^3/uL (150-450); Red Blood Count 3.71 x10^6/uL (4.1-5.4); Red Cell Distribution Width 18.6 % (11.5-14.0); White Blood Count 10.1 x10^3/uL (4.0-10.5)
[2023-11-07 22:36] LABS: ALBUMIN 3.2 g/dL (3.5-5.0); ANION GAP 12.3 MEQ/L (5-15); Calcium 8.2 mg/dL (8.4-10.2); Creatinine 1 1.51 mg/dL (0.52-1.04); EST GLOMERULAR FILTRATION RATE 39.8 ML/MIN; Potassium 3.4 mmol/L (3.5-5.1); Total Protein 7.1 g/dL (6.3-8.2)
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
[2023-11-07 23:09] LABS: ANISOCYTOSIS 2+; Basophil 2 % (0.0-1.0); Eosinophil 2 % (0.00-3.0); Lymphocytes 11 % (24-44); Monocyte 7 % (0.0-12.0); Neutrophils 78 % (36.0-66.0); Platelet Estimate NORMAL (NORMAL); Total Cells Counted 100
[2023-11-07 23:10] LABS: Ovalocytes 2+; Poikilocytosis 1+; Stomatocyte 1+
[2023-11-07 23:23] VITALS: TEMP 97.2
[2023-11-07] MEDS ORDERED: Klor Con ONE (23:41)
[2023-11-07] MEDS ORDERED: Magnesium 1 Gm / 100 Ml D5W*** 200 ML IV ONE (23:41)
[2023-11-07] MEDS: Magnesium 1 Gm / 100 Ml D5W*** 100 ML IV SCH (23:44)
[2023-11-07] MEDS: Klor Con PO ONE (23:44)
[2023-11-08 01:42] LABS: Appearance Clear (Clear); Bacteria None Seen /HPF (None Seen); Bilirubin Negative (Negative); Blood Negative (Negative); Epithelial Cells None Seen /HPF (None Seen); Glucose, Urine Negative (Negative); Ketones Trace (Negative); Leukocyte Esterase Moderate (Negative); Nitrite Negative (Negative); Protein,Urine Dip 30 (Negative); RBC 0-2 /HPF (0-5); Specific Gravity 1.015 (1.005-1.030); Urobilinogen 0.2 mg/dL (0.2); WBC >100 /HPF (0-5)
[2023-11-08 01:43] LABS: ADD URINE CULTURE? YES (NO)
[2023-11-08 02:09] VITALS: PULSE 72
[2023-11-08 02:34] VITALS: O2SAT 95
[2023-11-08] MEDS ORDERED: Macrobid 100MG Capsule ONE (02:43)
[2023-11-08] MEDS: Macrobid 100MG Capsule PO ONE (02:45)
[2023-11-08 02:53] VITALS: BP 129/63; RESP 20
== END 2023-11-08 03:05 | disposition home or self-care (01) ==
LOC: ED 21:48
DX: N39.0 Urinary tract infection, site not specified (principal); D64.9 Anemia, unspecified; N17.9 Acute kidney failure, unspecified; R79.89 Other specified abnormal findings of blood chemistry; E80.6 Other disorders of bilirubin metabolism; R94.31 Abnormal electrocardiogram [ECG] [EKG]; E87.6 Hypokalemia; R53.1 Weakness; I11.0 Hypertensive heart disease with heart failure; I50.9 Heart failure, unspecified; E11.42 Type 2 diabetes mellitus with diabetic polyneuropathy; Z79.891 Long term (current) use of opiate analgesic; Z79.899 Other long term (current) drug therapy
CPT/HCPCS: 36000; 36415; 80053; 81001; 83880; 84484; 85025; 87040; 87077; 87086; 87186; 93005; 93041; 94760; 99284; J3475; A9270-GY

== ENCOUNTER 2023-12-16 04:33 | Inpatient (IN) | payer MEDICARE ==
[2023-12-16 05:50] LABS: Absolute Neutrophil Ct (ANC) 9.09 x10^3/uL (1.4-6.9); BASOPHIL % 1.2 % (0.0-0.4); Basophil (Absolute #) 0.14 x10^3/uL (0-0.4); Eosinophil % 1.6 % (0.00-5.0); Eosinophil (Absolute #) 0.19 x10^3/uL (0-0.5); Hematocrit 37.7 % (35-47); Hemoglobin 11.8 g/dL (12.0-16.0); IMMATURE GRAN # 0.06 x10^3u/L (0.00-0.03); IMMATURE GRAN % 0.5 % (0.00-0.4); Lymphocyte (Absolute #) 1.36 x10^3/uL (1.0-4.6); Lymphocytes % 11.4 % (24.0-44.0); Mean Cell Volume 88.5 fL (78-100); Mean Corpuscular Hemoglobin 27.7 pg (26-32); Mean Corpuscular Hgb Concent. 31.3 g/dL (32-36); Mean Platelet Volume 9.2 fL (7.5-11.0); Monocyte (Absolute #) 1.11 x10^3/uL (0.0-1.3); Monocytes % 9.3 % (0.0-12.0); Platelet Count 232 x10^3/uL (150-450); Red Blood Count 4.26 x10^6/uL (4.1-5.4); Red Cell Distribution Width 14.8 % (11.5-14.0)
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
[2023-12-16 06:23] LABS: ALBUMIN 2.8 g/dL (3.5-5.0); ANION GAP 10.1 MEQ/L (5-15); BILIRUBIN,TOTAL 2.2 mg/dL (0.2-1.3); Calcium 8.1 mg/dL (8.4-10.2); Creatinine 1 1.43 mg/dL (0.52-1.04); EST GLOMERULAR FILTRATION RATE 42.5 ML/MIN; Total Protein 6.8 g/dL (6.3-8.2)
[2023-12-16 06:25] LABS: PROCALCITONIN 13.1 ng/mL (0.030-0.080)
[2023-12-16] MEDS ORDERED: MORPHINE SULFATE 2 MG INJ ONE (06:45)
[2023-12-16] MEDS: Zofran 4 MG/2 ML VIAL IV ONE (06:45)
[2023-12-16] MEDS ORDERED: Zofran 4 MG/2 ML VIAL ONE (06:45)
[2023-12-16] MEDS: MORPHINE SULFATE 2 MG INJ IV ONE (06:46)
[2023-12-16] MEDS ORDERED: Klor Con ONE (06:47)
[2023-12-16] MEDS: Klor Con PO ONE (06:49)
[2023-12-16] MEDS: Lactated Ringers 1,000 ML IV SCH (06:49)
[2023-12-16] MEDS: DAPTOmycin 500 MG in Sodium Chloride Flush 30 ML*** 10 ML IV ONE (07:49)
[2023-12-16] MEDS ORDERED: DUONEB 0.5-3 MG/3 ml Neb IH PRN (09:10)
[2023-12-16] MEDS ORDERED: Zofran 4 MG/2 ML VIAL IV PRN (09:31)
--- NOTE | 2023-12-16 09:42 | PCM.NOTE ---
Date and Time: 12/16/23924 Objective Data Vital Signs: Vital Signs - 24 hr Temp Pulse Resp BP BP Pulse Ox 12/16/23 08:48 100 H 18 98 12/16/23 08:25 98.3 F 105 H 20 129/69 99 12/16/23 08:14 98.3 F 105 H 20 129/69 99 12/16/23 08:01 126/61 97 12/16/23 08:00 97 12/16/23 07:50 98 12/16/23 07:40 100 12/16/23 07:33 79 17 97 12/16/23 07:04 99 12/16/23 07:01 80 18 109/75 100 12/16/23 06:30 76 20 103/69 100 12/16/23 06:06 79 16 115/96 100 12/16/23 05:31 79 20 99/63 99 12/16/23 05:01 84 18 113/49 98 12/16/23 04:39 87 20 129/101 100 12/16/23 04:37 96.6 F 85 22 129/101 100 Pain Assessment - Last Documented Pain Intensity 9 Intake and Output: Intake & Output 12/13/23 12/14/23 12/15/23 12/16/23 11:59 11:59 11:59 11:59 Weight 170.7 kg Lab Results: Lab Results-Last 24 Hours 12/16/23 12/16/23 12/16/23 Range/Units 05:45 05:45 05:45 WBC 12.0 H (4.0-10.5) x10^3/uL RBC 4.26 (4.1-5.4) x10^6/uL Hgb 11.8 L (12.0-16.0) g/dL Hct 37.7 (35-47) % MCV 88.5 (78-100) fL MCH 27.7 (26-32) pg MCHC 31.3 L (32-36) g/dL RDW 14.8 H (11.5-14.0) % Plt Count 232 (150-450) x10^3/uL MPV 9.2 (7.5-11.0) fL Gran % 76.0 H (36.0-66.0) % Immature Gran % (Auto) 0.5 H (0.00-0.4) % Nucleat RBC Rel Count 0.0 (0.00-0.1) % Eos # (Auto) 0.19 (0-0.5) x10^3/uL Immature Gran # (Auto) 0.06 H (0.00-0.03) x10^3u/L Absolute Lymphs (auto) 1.36 (1.0-4.6) x10^3/uL Absolute Monos (auto) 1.11 (0.0-1.3) x10^3/uL Absolute Nucleated RBC 0.00 (0.00-0.01) x10^3u/L Lymphocytes % 11.4 L (24.0-44.0) % Monocytes % 9.3 (0.0-12.0) % Eosinophils % 1.6 (0.00-5.0) % Basophils % 1.2 (0.0-0.4) % Absolute Granulocytes 9.09 H (1.4-6.9) x10^3/uL Basophils # 0.14 (0-0.4) x10^3/uL Sodium 135 (135-145) mmol/L Potassium 3.0 L* (3.5-5.1) mmol/L Chloride 95 L (98-107) mmol/L Carbon Dioxide 32 H (22-30) mmol/L Anion Gap 10.1 (5-15) MEQ/L BUN 17 (7-17) mg/dL Creatinine 1.43 H (0.52-1.04) mg/dL Estimated GFR 42.5 ML/MIN Glucose 112 H (74-106) mg/dL Calcium 8.1 L (8.4-10.2) mg/dL Magnesium (1.6-2.3) mg/dL Total Bilirubin 2.20 H (0.2-1.3) mg/dL AST 22 (14-36) U/L ALT 10 (0-35) U/L Alkaline Phosphatase 81 (38-126) U/L Creatine Kinase 45 (30-135) U/L Serum Total Protein 6.8 (6.3-8.2) g/dL Albumin 2.8 L (3.5-5.0) g/dL Prealbumin (17.6-36.0) mg/dL Procalcitonin 13.100 H* (0.030-0.080) ng/mL 12/16/23 12/16/23 Range/Units 05:45 05:45 WBC (4.0-10.5) x10^3/uL RBC (4.1-5.4) x10^6/uL Hgb (12.0-16.0) g/dL Hct (35-47) % MCV (78-100) fL MCH (26-32) pg MCHC (32-36) g/dL RDW (11.5-14.0) % Plt Count (150-450) x10^3/uL MPV (7.5-11.0) fL Gran % (36.0-66.0) % Immature Gran % (Auto) (0.00-0.4) % Nucleat RBC Rel Count (0.00-0.1) % Eos # (Auto) (0-0.5) x10^3/uL Immature Gran # (Auto) (0.00-0.03) x10^3u/L Absolute Lymphs (auto) (1.0-4.6) x10^3/uL Absolute Monos (auto) (0.0-1.3) x10^3/uL Absolute Nucleated RBC (0.00-0.01) x10^3u/L Lymphocytes % (24.0-44.0) % Monocytes % (0.0-12.0) % Eosinophils % (0.00-5.0) % Basophils % (0.0-0.4) % Absolute Granulocytes (1.4-6.9) x10^3/uL Basophils # (0-0.4) x10^3/uL Sodium (135-145) mmol/L Potassium (3.5-5.1) mmol/L Chloride (98-107) mmol/L Carbon Dioxide (22-30) mmol/L Anion Gap (5-15) MEQ/L BUN (7-17) mg/dL Creatinine (0.52-1.04) mg/dL Estimated GFR ML/MIN Glucose (74-106) mg/dL Calcium (8.4-10.2) mg/dL Magnesium 1.3 L (1.6-2.3) mg/dL Total Bilirubin (0.2-1.3) mg/dL AST (14-36) U/L ALT (0-35) U/L Alkaline Phosphatase (38-126) U/L Creatine Kinase (30-135) U/L Serum Total Protein (6.3-8.2) g/dL Albumin (3.5-5.0) g/dL Prealbumin 4.30 L (17.6-36.0) mg/dL Procalcitonin (0.030-0.080) ng/mL
[2023-12-16] MEDS ORDERED: NON-FORMULARY ITEM (Potassium Chloride [Potassium Chloride] 20 MEQ Tab.Er.Prt) PO SCH (10:00)
[2023-12-16] MEDS ORDERED: Cleocin Phosphate IV 600 MG/4 ML IV SCH (10:00)
[2023-12-16] MEDS: Sodium Chloride 0.9% 1000 ML 1,000 ML IV SCH (10:21)
[2023-12-16] MEDS: NORCO 5/325 MG PO PRN (11:11)
[2023-12-16] MEDS: Acidophilus TABLET PO SCH (11:12)
[2023-12-16] MEDS: Klor Con PO SCH ×2 (11:12→12:41)
[2023-12-16] MEDS: Lasix 40 MG PO SCH (11:12)
[2023-12-16] MEDS: Diflucan/Saline 0.2G/100ML PREMIX*** 100 ML IV SCH (11:13)
[2023-12-16] MEDS: FOLATE 1 MG PO SCH (11:13)
[2023-12-16] MEDS: NORVASC 5 MG PO SCH (11:13)
[2023-12-16] MEDS: Cymbalta 30 MG Capsule PO SCH (11:13)
[2023-12-16] MEDS: Protonix 40MG Tablet PO SCH (11:13)
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
[2023-12-16] MEDS: NYSTOP POWDER 15 GM TP SCH (12:41)
[2023-12-16] MEDS: TYLENOL 325 MG PO PRN (13:36)
[2023-12-16] MEDS: CLINDAMYCIN-D5W 600 MG/50 ML*** 600 MG/50 ML BAG IV SCH ×2 (13:37→13:55)
[2023-12-16 14:05] LABS: Appearance Clear (Clear); Bacteria None Seen /HPF (None Seen); Bilirubin Small (Negative); Blood Negative (Negative); Epithelial Cells Few /HPF (None Seen); Glucose, Urine Negative (Negative); Ketones Trace (Negative); Leukocyte Esterase Trace (Negative); Nitrite Negative (Negative); Protein,Urine Dip 30 (Negative); RBC 0-2 /HPF (0-5); Specific Gravity 1.025 (1.005-1.030)
[2023-12-16 14:08] LABS: ADD URINE CULTURE? ORDERED SEPARATELY (NO); Hyaline Casts 20-50 /LPF (0-2)
[2023-12-16] MEDS: Desyrel 150 MG PO SCH (21:34)
[2023-12-16] MEDS: REQUIP 2MG TAB PO SCH (21:34)
[2023-12-16] MEDS: ELIQUIS 2.5 MG TABLET PO SCH (21:34)
[2023-12-16] MEDS ORDERED: DESYREL 50 MG PO SCH (22:00)
[2023-12-17 04:58] LABS: Hematocrit 35.7 % (35-47); Hemoglobin 10.3 g/dL (12.0-16.0); Mean Cell Volume 91.1 fL (78-100); Mean Corpuscular Hemoglobin 26.3 pg (26-32); Mean Corpuscular Hgb Concent. 28.9 g/dL (32-36); Platelet Count 206 x10^3/uL (150-450); Red Blood Count 3.92 x10^6/uL (4.1-5.4); Red Cell Distribution Width 14.8 % (11.5-14.0)
[2023-12-17 05:13] LABS: ALBUMIN 2.3 g/dL (3.5-5.0); ANION GAP 6.3 MEQ/L (5-15); BILIRUBIN,TOTAL 0.8 mg/dL (0.2-1.3); Calcium 7.4 mg/dL (8.4-10.2); Creatinine 1 1.41 mg/dL (0.52-1.04); EST GLOMERULAR FILTRATION RATE 43.2 ML/MIN; MAGNESIUM 1.5 mg/dL (1.6-2.3); Potassium 3.9 mmol/L (3.5-5.1); Total Protein 5.7 g/dL (6.3-8.2)
[2023-12-17 05:47] LABS: Slide Review YES
[2023-12-17] MEDS: MAG-OX 400 PO ONE (06:37)
--- NOTE | 2023-12-17 08:59 | PCM.NOTE ---
Date and Time: 12/17/23 0853 Subjective Assessment: 12/16/23 is a 58 year old female with PMHX of morbid obesity, oxygen use at home of 4lNC, type II DM, COPD, HTN, hyperlipidemia, CHF, migraines, PE, OA, and peripheral neuropathy. She was brought to the emergency department by the paramedics on 12/13/23 for c/o significant pain and redness to areas of skin folds including under both breasts, both antecubital fossae, underneath her pannus and bilateral groins and bilateral upper medial thighs. Patient is noncompliant and has very poor body and skin hygiene. Patient states she has not measured a fever but in the last 3 to 4 days she has noticed feeling feverish and then chills. Patient states typically, she is able to use cornstarch and zinc oxide ointment and these areas improved. However, she states she has been using these medications topically but her symptoms of redness and pain is worsening/expanding. Patient states that she had this before and she was admitted and put on antibiotics and antifungal medication. She was started on Daptomycin in the ER. She was also gave potassium replacement for a K+ of 3.0 on admission. Recheck of K+ was 3.3- again replaced and will recheck. Antibiotics changed to Clindamycin and fluconazole IV started. Ramachandran placed to aide in skin healing. Nursing to bath with CHG and place nystatin powder in folds, then advised pillow cases in between folds so skin not touching. Pt denies CP, SOB, abd. pain, N/V/D. 12/17/23 Pt resting in bed. She continues to have pain from cellulitis. Discussed with pt case with case management as she most likely will need placement. Ramachandran not draining well asked nurse to flush ramachandran. If this continues to not drain well will further investigate. LISETTE slightly improving but not at baseline. Mg+ 1.5 and replaced. Pt denies CP, SOB, abd. pain, N/V/D. - Review of Systems Constitutional: Weakness, No Fever, No Chills Eyes: No Symptoms Ears, Nose, & Throat: No Symptoms Respiratory: No Cough, No Short Of Breath Cardiac: No Chest Pain, No Edema, No Syncope Abdominal/Gastrointestinal: No Abdominal Pain, No Nausea, No Vomiting, No Diarrhea Genitourinary Symptoms: No Dysuria Musculoskeletal: No Back Pain, No Neck Pain Skin: Other (with cellulitis of breasts, both antecubital fossae, underneath her pannus and bilateral groins and bilateral upper medial thighs.), No Rash Neurological: No Dizziness, No Focal Weakness, No Sensory Changes Psychological: No Symptoms Endocrine: No Symptoms Hematologic/Lymphatic: No Symptoms Immunological/Allergic: No Symptoms Objective Exam General Appearance: no apparent distress, alert, obese Neurologic Exam: alert, oriented x 3, cooperative, normal mood/affect, nml cerebellar function, sensation nml, other (BLLE weakness), No motor deficits Skin Exam: normal color, warm, dry, rash (with cellulitis of breasts, both antecubital fossae, underneath her pannus and bilateral groins and bilateral upper medial thighs.) Wound Assessment: Skin/Wound Assessment Wound/Incision Assessment Start: 12/16/23 08:46 Text: Status: Active Freq: Q6H Protocol: Document 12/17/23 02:00 AR (Rec: 12/17/23 03:27 AR [id number]) Wound/Incision Assessment Under Breasts Wound Assessment Shift Assessment Wound Type excoriation Wound Stage Non Pressure Wound General Appearance Open to air,Clean/Dry,Reddened Wound Bed Greatest Portion Pale [place] Surrounding Tissue [place] Comment excoriation under both breasts , nystatin powder applied. Abdomen Wound Assessment Shift Assessment Wound Type excoriation Wound Stage Non Pressure Wound General Appearance Open to air,Clean/Dry,Reddened Wound Bed Greatest Portion Pale [place] Surrounding Tissue [place] Comment Excoriation in abdominal folds . cleaned with warm water and patted dry, nystatin powder applied. Pillow cases are in abdominal folds to keep skin from rubbing, change as needed . Inner thighs Wound Assessment Shift Assessment Wound Type excoriation Wound Stage Non Pressure Wound General Appearance Open to air,Clean/Dry,Reddened Wound Bed Greatest Portion Pale [place] Surrounding Tissue [place] Comment inner thighs have excoriation, very painful for patient. Areas were dried with towel and nystatin powder applied. Wound Photo Photo Taken No Eye Exam: PERRL, EOMI, eyes nml inspection Ears, Nose, Throat Exam: normal ENT inspection, pharynx normal, moist mucous membranes Neck Exam: normal inspection, non-tender, supple, full range of motion Respiratory Exam: normal breath sounds, lungs clear, No respiratory distress Cardiovascular Exam: regular rate/rhythm, normal heart sounds Gastrointestinal/Abdomen Exam: soft, No tenderness, No mass Extremity Exam: normal inspection, normal range of motion Back Exam: normal inspection, normal range of motion, No CVA tenderness, No vertebral tenderness Pelvic Exam: deferred Rectal Exam: deferred Objective Data Vital Signs: Vital Signs - 24 hr Temp Pulse Resp BP Pulse Ox 12/17/23 08:01 72 18 95 12/17/23 07:25 97.6 F 62 16 99/52 95 12/17/23 04:00 97.6 F 63 20 102/58 98 12/16/23 23:36 97.6 F 89 20 90/52 96 12/16/23 21:10 84 18 99 12/16/23 19:37 97.0 F 89 20 119/74 98 12/16/23 17:50 97.4 F 73 18 145/71 99 12/16/23 11:46 97.1 F 72 18 131/68 99 Pain Assessment - Last Documented Pain Intensity 8 Pain Scale Used 0-10 Pain Scale Intake and Output: Intake & Output 12/14/23 12/15/23 12/16/23 12/17/23 11:59 11:59 11:59 11:59 Intake Total 450 3302 Output Total 450 Balance 450 2852 Weight 170.7 kg Lab Results: Lab Results-Last 24 Hours 12/16/23 12/16/23 12/16/23 Range/Units 05:45 10:23 11:44 WBC (4.0-10.5) x10^3/uL RBC (4.1-5.4) x10^6/uL Hgb (12.0-16.0) g/dL Hct (35-47) % MCV (78-100) fL MCH (26-32) pg MCHC (32-36) g/dL RDW (11.5-14.0) % Plt Count (150-450) x10^3/uL MPV (7.5-11.0) fL Sodium (135-145) mmol/L Potassium 3.3 L (3.5-5.1) mmol/L Chloride (98-107) mmol/L Carbon Dioxide (22-30) mmol/L Anion Gap (5-15) MEQ/L BUN (7-17) mg/dL Creatinine (0.52-1.04) mg/dL Estimated GFR ML/MIN Glucose (74-106) mg/dL POC Glucometer 99 (74 to 106) mg/dL Calcium (8.4-10.2) mg/dL Magnesium (1.6-2.3) mg/dL Total Bilirubin (0.2-1.3) mg/dL AST (14-36) U/L ALT (0-35) U/L Alkaline Phosphatase (38-126) U/L Serum Total Protein (6.3-8.2) g/dL Albumin (3.5-5.0) g/dL Prealbumin 4.30 L (17.6-36.0) mg/dL Urine Color (Yellow) Urine Appearance (Clear) Urine pH (4.6-8.0) Ur Specific [place] (1.005-1.030) Urine Protein (Negative) Urine Glucose (UA) (Negative) mg/dL Urine Ketones (Negative) Urine Blood (Negative) Urine Nitrite (Negative) Urine Bilirubin (Negative) Urine Urobilinogen (0.2) mg/dL Ur Leukocyte Esterase (Negative) U Hyaline Cast (Auto) (0-2) /LPF Urine Microscopic RBC (0-5) /HPF Urine Microscopic WBC (0-5) /HPF Ur Epithelial Cells (None Seen) /HPF Urine Bacteria (None Seen) /HPF Urine Culture Reflexed (NO) Slides for Path Review 12/16/23 12/16/23 12/16/23 Range/Units 13:20 17:37 21:35 WBC (4.0-10.5) x10^3/uL RBC (4.1-5.4) x10^6/uL Hgb (12.0-16.0) g/dL Hct (35-47) % MCV (78-100) fL MCH (26-32) pg MCHC (32-36) g/dL RDW (11.5-14.0) % Plt Count (150-450) x10^3/uL MPV (7.5-11.0) fL Sodium (135-145) mmol/L Potassium 3.8 (3.5-5.1) mmol/L Chloride (98-107) mmol/L Carbon Dioxide (22-30) mmol/L Anion Gap (5-15) MEQ/L BUN (7-17) mg/dL Creatinine (0.52-1.04) mg/dL Estimated GFR ML/MIN Glucose (74-106) mg/dL POC Glucometer 116 H (74 to 106) mg/dL Calcium (8.4-10.2) mg/dL Magnesium (1.6-2.3) mg/dL Total Bilirubin (0.2-1.3) mg/dL AST (14-36) U/L ALT (0-35) U/L Alkaline Phosphatase (38-126) U/L Serum Total Protein (6.3-8.2) g/dL Albumin (3.5-5.0) g/dL Prealbumin (17.6-36.0) mg/dL Urine Color Dark Yellow A (Yellow) Urine Appearance Clear (Clear) Urine pH 5.0 (4.6-8.0) Ur Specific [place] 1.025 (1.005-1.030) Urine Protein 30 (Negative) Urine Glucose (UA) Negative (Negative) mg/dL Urine Ketones Trace A (Negative) Urine Blood Negative (Negative) Urine Nitrite Negative (Negative) Urine Bilirubin Small A (Negative) Urine Urobilinogen 1.0 A (0.2) mg/dL Ur Leukocyte Esterase Trace A (Negative) U Hyaline Cast (Auto) 20-50 (0-2) /LPF Urine Microscopic RBC 0-2 (0-5) /HPF Urine Microscopic WBC 6-10 A (0-5) /HPF Ur Epithelial Cells Few (None Seen) /HPF Urine Bacteria None Seen (None Seen) /HPF Urine Culture Reflexed ORDERED SEPARATELY (NO) Slides for Path Review 12/16/23 12/17/23 12/17/23 Range/Units 21:35 04:10 04:10 WBC 6.0 (4.0-10.5) x10^3/uL RBC 3.92 L (4.1-5.4) x10^6/uL Hgb 10.3 L (12.0-16.0) g/dL Hct 35.7 (35-47) % MCV 91.1 (78-100) fL MCH 26.3 (26-32) pg MCHC 28.9 L (32-36) g/dL RDW 14.8 H (11.5-14.0) % Plt Count 206 (150-450) x10^3/uL MPV 10.0 (7.5-11.0) fL Sodium 137 (135-145) mmol/L Potassium 3.9 (3.5-5.1) mmol/L Chloride 98 (98-107) mmol/L Carbon Dioxide 36 H (22-30) mmol/L Anion Gap 6.3 (5-15) MEQ/L BUN 16 (7-17) mg/dL Creatinine 1.41 H (0.52-1.04) mg/dL Estimated GFR 43.2 ML/MIN Glucose 90 (74-106) mg/dL POC Glucometer 107 H (74 to 106) mg/dL Calcium 7.4 L (8.4-10.2) mg/dL Magnesium 1.5 L (1.6-2.3) mg/dL Total Bilirubin 0.80 (0.2-1.3) mg/dL AST 23 (14-36) U/L ALT 8 (0-35) U/L Alkaline Phosphatase 72 (38-126) U/L Serum Total Protein 5.7 L (6.3-8.2) g/dL Albumin 2.3 L (3.5-5.0) g/dL Prealbumin (17.6-36.0) mg/dL Urine Color (Yellow) Urine Appearance (Clear) Urine pH (4.6-8.0) Ur Specific [place] (1.005-1.030) Urine Protein (Negative) Urine Glucose (UA) (Negative) mg/dL Urine Ketones (Negative) Urine Blood (Negative) Urine Nitrite (Negative) Urine Bilirubin (Negative) Urine Urobilinogen (0.2) mg/dL Ur Leukocyte Esterase (Negative) U Hyaline Cast (Auto) (0-2) /LPF Urine Microscopic RBC (0-5) /HPF Urine Microscopic WBC (0-5) /HPF Ur Epithelial Cells (None Seen) /HPF Urine Bacteria (None Seen) /HPF Urine Culture Reflexed (NO) Slides for Path Review YES 12/17/23 Range/Units 07:20 WBC (4.0-10.5) x10^3/uL RBC (4.1-5.4) x10^6/uL Hgb (12.0-16.0) g/dL Hct (35-47) % MCV (78-100) fL MCH (26-32) pg MCHC (32-36) g/dL RDW (11.5-14.0) % Plt Count (150-450) x10^3/uL MPV (7.5-11.0) fL Sodium (135-145) mmol/L Potassium (3.5-5.1) mmol/L Chloride (98-107) mmol/L Carbon Dioxide (22-30) mmol/L Anion Gap (5-15) MEQ/L BUN (7-17) mg/dL Creatinine (0.52-1.04) mg/dL Estimated GFR ML/MIN Glucose (74-106) mg/dL POC Glucometer 78 (74 to 106) mg/dL Calcium (8.4-10.2) mg/dL Magnesium (1.6-2.3) mg/dL Total Bilirubin (0.2-1.3) mg/dL AST (14-36) U/L ALT (0-35) U/L Alkaline Phosphatase (38-126) U/L Serum Total Protein (6.3-8.2) g/dL Albumin (3.5-5.0) g/dL Prealbumin (17.6-36.0) mg/dL Urine Color (Yellow) Urine Appearance (Clear) Urine pH (4.6-8.0) Ur Specific [place] (1.005-1.030) Urine Protein (Negative) Urine Glucose (UA) (Negative) mg/dL Urine Ketones (Negative) Urine Blood (Negative) Urine Nitrite (Negative) Urine Bilirubin (Negative) Urine Urobilinogen (0.2) mg/dL Ur Leukocyte Esterase (Negative) U Hyaline Cast (Auto) (0-2) /LPF Urine Microscopic RBC (0-5) /HPF Urine Microscopic WBC (0-5) /HPF Ur Epithelial Cells (None Seen) /HPF Urine Bacteria (None Seen) /HPF Urine Culture Reflexed (NO) Slides for Path Review Assessment/Plan (1) Cellulitis Current Visit: Yes Status: Acute Code(s): L03.90 - CELLULITIS, UNSPECIFIED (2) Candidiasis Current Visit: Yes Status: Acute Code(s): B37.9 - CANDIDIASIS, UNSPECIFIED (3) LISETTE (acute kidney injury) Current Visit: Yes Status: Acute Code(s): N17.9 - ACUTE KIDNEY FAILURE, UNSPECIFIED (4) Elevated procalcitonin Current Visit: Yes Status: Acute Code(s): R79.89 - OTHER SPECIFIED ABNORMAL FINDINGS OF BLOOD CHEMISTRY (5) Hypokalemia Current Visit: Yes Status: Acute Code(s): E87.6 - HYPOKALEMIA (6) Morbid obesity Current Visit: No Status: Chronic Code(s): E66.01 - MORBID (SEVERE) OBESITY DUE TO EXCESS CALORIES (7) Restless legs Current Visit: No Status: Chronic (8) COPD (chronic obstructive pulmonary disease) Current Visit: Yes Status: Chronic (9) History of pulmonary embolism Current Visit: Yes Status: Acute Code(s): Z86.711 - PERSONAL HISTORY OF PULMONARY EMBOLISM (10) Obstructive sleep apnea Current Visit: Yes Status: Chronic Assessment & Plan: (1) Cellulitis Current Visit: Yes Status: Acute Assessment & Plan: -Clindamycin IV - probiotics - Ramachandran placed to aide in skin healing as pt is also incontinent. - CHG bath daily - good hygiene - Pillow cases between skin folds so skin not touching - WBC 12.0 - Tylenol for pain control / - WBC 6.0 Code(s): L03.90 - CELLULITIS, UNSPECIFIED (2) Candidiasis Current Visit: Yes Status: Acute Assessment & Plan: - Fluconazole IV daily - Nystatin powder after bath daily - BMI 60.7 - most recent A1C- 5.23 on 09/26/23 Code(s): B37.9 - CANDIDIASIS, UNSPECIFIED (3) LISETTE (acute kidney injury) Current Visit: Yes Status: Acute Assessment & Plan: - Creat 1.43 - baseline normal - IVF - trend /6 - creat 1.41 - Ramachandran to be flushed as not draining well Code(s): N17.9 - ACUTE KIDNEY FAILURE, UNSPECIFIED (4) Elevated procalcitonin Current Visit: Yes Status: Acute Assessment & Plan: - Procal 13.10 - most likely 2:2 cellulitis - UA/ UC negative - denies Abd pain or SOB. Code(s): R79.89 - OTHER SPECIFIED ABNORMAL FINDINGS OF BLOOD CHEMISTRY (5) Hypokalemia Current Visit: Yes Status: Acute Assessment & Plan: - K+ 3.0 in ER- replaced - repeat K+ 3.3- replaced trend /6 - K+ 3.9- resolved Code(s): E87.6 - HYPOKALEMIA (6) Morbid obesity Current Visit: No Status: Chronic Assessment & Plan: - BMI 60.7 - advised diet and exercise control - pt states she is bed bound at home- consider HHC - will discuss with CM tomorrow - may need placement as pt had poor hygiene. - PT/OT eval Code(s): E66.01 - MORBID (SEVERE) OBESITY DUE TO EXCESS CALORIES (7) Restless legs Current Visit: No Status: Chronic Assessment & Plan: - Continue requip (8) COPD (chronic obstructive pulmonary disease) Current Visit: Yes Status: Chronic Assessment & Plan: - Continue 4lNC- this is pt's baseline - Carbon dioxide 32 - CPAP at night (9) History of pulmonary embolism Current Visit: Yes Status: Acute Assessment & Plan: - Continue Eliquis 5mg BID Code(s): Z86.711 - PERSONAL HISTORY OF PULMONARY EMBOLISM (10) Obstructive sleep apnea Current Visit: Yes Status: Chronic Assessment & Plan: - Continue CPAP at night - BMI 60.7 Code(s): G47.33 - OBSTRUCTIVE SLEEP APNEA (ADULT) (PEDIATRIC) (11) Hypomagnesemia Current Visit: Yes Status: Acute Assessment & Plan: - Mg+ 1.5 replaced VTE: Eliquis PPI: pantoprazole Next of KIN: Ellis Shaw [phone] D/C plan: 1-2 days Code status: Full Code(s): E83.42 - HYPOMAGNESEMIA
[2023-12-18 04:57] LABS: Hematocrit 37.6 % (35-47); Hemoglobin 10.8 g/dL (12.0-16.0); Mean Cell Volume 92.2 fL (78-100); Mean Corpuscular Hemoglobin 26.5 pg (26-32); Mean Corpuscular Hgb Concent. 28.7 g/dL (32-36); Mean Platelet Volume 9.7 fL (7.5-11.0); Platelet Count 228 x10^3/uL (150-450); Red Blood Count 4.08 x10^6/uL (4.1-5.4); Red Cell Distribution Width 14.8 % (11.5-14.0); White Blood Count 8.2 x10^3/uL (4.0-10.5)
[2023-12-18 05:19] LABS: ALBUMIN 2.5 g/dL (3.5-5.0); ANION GAP 8.6 MEQ/L (5-15); BILIRUBIN,TOTAL 0.6 mg/dL (0.2-1.3); Calcium 7.5 mg/dL (8.4-10.2); Creatinine 1 1.35 mg/dL (0.52-1.04); EST GLOMERULAR FILTRATION RATE 45.6 ML/MIN; Potassium 4.3 mmol/L (3.5-5.1); Total Protein 6.1 g/dL (6.3-8.2)
[2023-12-18 05:44] LABS: Slide Review YES
--- NOTE | 2023-12-18 08:38 | PCM.NOTE ---
Date and Time: 12/18/23 0833 Subjective Assessment: 12/16/23 is a 58 year old female with PMHX of morbid obesity, oxygen use at home of 4lNC, type II DM, COPD, HTN, hyperlipidemia, CHF, migraines, PE, OA, and peripheral neuropathy. She was brought to the emergency department by the paramedics on 12/13/23 for c/o significant pain and redness to areas of skin folds including under both breasts, both antecubital fossae, underneath her pannus and bilateral groins and bilateral upper medial thighs. Patient is noncompliant and has very poor body and skin hygiene. Patient states she has not measured a fever but in the last 3 to 4 days she has noticed feeling feverish and then chills. Patient states typically, she is able to use cornstarch and zinc oxide ointment and these areas improved. However, she states she has been using these medications topically but her symptoms of redness and pain is worsening/expanding. Patient states that she had this before and she was admitted and put on antibiotics and antifungal medication. She was started on Daptomycin in the ER. She was also gave potassium replacement for a K+ of 3.0 on admission. Recheck of K+ was 3.3- again replaced and will recheck. Antibiotics changed to Clindamycin and fluconazole IV started. Ramachandran placed to aide in skin healing. Nursing to bath with CHG and place nystatin powder in folds, then advised pillow cases in between folds so skin not touching. Pt denies CP, SOB, abd. pain, N/V/D. 12/17/23 Pt resting in bed. She continues to have pain from cellulitis. Discussed with pt case with case management as she most likely will need placement. Ramachandran not draining well asked nurse to flush ramachandran. If this continues to not drain well will further investigate. LISETTE slightly improving but not at baseline. Mg+ 1.5 and replaced. Pt denies CP, SOB, abd. pain, N/V/D. 12/18/23 Pt resting in the chair. She was able to get up with the assist of 2 yesterday. All areas of cellulitis improving and skin starting to peel. She states it is itching and burning. Discussed OP care and d/c plans and she is willing to go to rehab for a short period of time if needed. She does not want home health care. LISETTE improving, will hold lasix today. Continue antibiotics. UC and BC results negative. She denies CP, SOB, abd. pain, N/V/D. - Review of Systems Constitutional: No Fever, No Chills Eyes: No Symptoms Ears, Nose, & Throat: No Symptoms Respiratory: No Cough, No Short Of Breath Cardiac: No Chest Pain, No Edema, No Syncope Abdominal/Gastrointestinal: No Abdominal Pain, No Nausea, No Vomiting, No Diarrhea Genitourinary Symptoms: No Dysuria Musculoskeletal: No Back Pain, No Neck Pain Skin: Dryness, Other (with cellulitis of breasts, both antecubital fossae, underneath her pannus and bilateral groins and bilateral upper medial thighs.), No Rash Neurological: No Dizziness, No Focal Weakness, No Sensory Changes Psychological: No Symptoms Endocrine: No Symptoms Hematologic/Lymphatic: No Symptoms Immunological/Allergic: No Symptoms Objective Exam General Appearance: no apparent distress, alert, obese Neurologic Exam: alert, oriented x 3, cooperative, normal mood/affect, nml cerebellar function, sensation nml, No motor deficits Skin Exam: normal color, warm, dry, other (with cellulitis of breasts, both antecubital fossae, underneath her pannus and bilateral groins and bilateral upper medial thighs.) Wound Assessment: Skin/Wound Assessment Wound/Incision Assessment Start: 12/16/23 08:46 Text: Status: Active Freq: Q6H Protocol: Document 12/18/23 02:00 (Rec: 12/18/23 02:33 [id number]) Wound/Incision Assessment Under Breasts Wound Assessment Shift Assessment Wound Type excoriation Wound Stage Non Pressure Wound General Appearance Open to air,Clean/Dry,Reddened Wound Bed Greatest Portion Pale Dailey Surrounding Tissue Dailey Comment areas cleansed, nystatin applied and clean pillow case Abdomen Wound Assessment Shift Assessment Wound Type excoriation Wound Stage Non Pressure Wound General Appearance Open to air,Clean/Dry,Reddened Wound Bed Greatest Portion Pale Dailey Surrounding Tissue Dailey Comment areas cleansed, pat dry, nystatin applied and dry clean pillow case applied Inner thighs Wound Assessment Shift Assessment Wound Type excoriation Wound Stage Non Pressure Wound General Appearance Open to air,Clean/Dry,Reddened Wound Bed Greatest Portion Pale Dailey Surrounding Tissue Dailey Comment areas cleansed, pat dry, nystatin powder applied and pillow cases used to prevent further skin irritation. Wound Photo Photo Taken No Eye Exam: PERRL, EOMI, eyes nml inspection Ears, Nose, Throat Exam: normal ENT inspection, pharynx normal, moist mucous membranes Neck Exam: normal inspection, non-tender, supple, full range of motion Respiratory Exam: normal breath sounds, lungs clear, No respiratory distress Cardiovascular Exam: regular rate/rhythm, normal heart sounds Gastrointestinal/Abdomen Exam: soft, No tenderness, No mass Extremity Exam: normal inspection, normal range of motion Back Exam: normal inspection, normal range of motion, No CVA tenderness, No vertebral tenderness Pelvic Exam: deferred Rectal Exam: deferred Objective Data Vital Signs: Vital Signs - 24 hr Temp Pulse Resp BP Pulse Ox 12/18/23 07:57 63 18 93 L 12/18/23 07:53 97.2 F 62 17 110/57 96 12/18/23 04:00 96.4 F 65 18 103/61 95 12/18/23 00:09 62 107/54 12/17/23 23:11 96.6 F 62 18 87/55 99 12/17/23 19:33 100 12/17/23 19:19 96.5 F 58 L 18 124/73 99 12/17/23 16:30 97.9 F 91 H 20 96/55 99 12/17/23 12:00 97.6 F 70 20 104/61 99 Pain Assessment - Last Documented Pain Intensity 0 Pain Scale Used 0-10 Pain Scale Intake and Output: Intake & Output 12/15/23 12/16/23 12/17/23 12/18/23 11:59 11:59 11:59 11:59 Intake Total 450 3782 2240 Output Total 450 900 Balance 450 3332 1340 Weight 170.7 kg Lab Results: Lab Results-Last 24 Hours 12/17/23 12/17/23 12/17/23 Range/Units 11:14 16:30 21:01 WBC (4.0-10.5) x10^3/uL RBC (4.1-5.4) x10^6/uL Hgb (12.0-16.0) g/dL Hct (35-47) % MCV (78-100) fL MCH (26-32) pg MCHC (32-36) g/dL RDW (11.5-14.0) % Plt Count (150-450) x10^3/uL MPV (7.5-11.0) fL Sodium (135-145) mmol/L Potassium (3.5-5.1) mmol/L Chloride (98-107) mmol/L Carbon Dioxide (22-30) mmol/L Anion Gap (5-15) MEQ/L BUN (7-17) mg/dL Creatinine (0.52-1.04) mg/dL Estimated GFR ML/MIN Glucose (74-106) mg/dL POC Glucometer 73 L 116 H 110 H (74 to 106) mg/dL Calcium (8.4-10.2) mg/dL Total Bilirubin (0.2-1.3) mg/dL AST (14-36) U/L ALT (0-35) U/L Alkaline Phosphatase (38-126) U/L Serum Total Protein (6.3-8.2) g/dL Albumin (3.5-5.0) g/dL Slides for Path Review 12/18/23 12/18/23 12/18/23 Range/Units 04:05 04:05 07:41 WBC 8.2 (4.0-10.5) x10^3/uL RBC 4.08 L (4.1-5.4) x10^6/uL Hgb 10.8 L (12.0-16.0) g/dL Hct 37.6 (35-47) % MCV 92.2 (78-100) fL MCH 26.5 (26-32) pg MCHC 28.7 L (32-36) g/dL RDW 14.8 H (11.5-14.0) % Plt Count 228 (150-450) x10^3/uL MPV 9.7 (7.5-11.0) fL Sodium 137 (135-145) mmol/L Potassium 4.3 (3.5-5.1) mmol/L Chloride 99 (98-107) mmol/L Carbon Dioxide 34 H (22-30) mmol/L Anion Gap 8.6 (5-15) MEQ/L BUN 13 (7-17) mg/dL Creatinine 1.35 H (0.52-1.04) mg/dL Estimated GFR 45.6 ML/MIN Glucose 103 (74-106) mg/dL POC Glucometer 88 (74 to 106) mg/dL Calcium 7.5 L (8.4-10.2) mg/dL Total Bilirubin 0.60 (0.2-1.3) mg/dL AST 22 (14-36) U/L ALT 9 (0-35) U/L Alkaline Phosphatase 80 (38-126) U/L Serum Total Protein 6.1 L (6.3-8.2) g/dL Albumin 2.5 L (3.5-5.0) g/dL Slides for Path Review YES Multi-Disciplinary Progress Notes: Multi-Disciplinary Progress Notes 12/17/23 14:10 (created 12/17/23 14:39) Respiratory Note by Peyton Strickland Patient's O2 sat is 92% on O2 at 4lpm at rest. Patient placed on room air at this time. Patient's O2 sat on Room air at rest is 85% on room air at rest. Patient placed back on O2 at 2lpm per NC. O2 sat 92% on 2lpm per NC at rest. Initialized on 12/17/23 14:39 - END OF NOTE 12/17/23 13:43 Case Management Note by Jewels Pate S/W [facility] IN PT- PATIENT HAS AN OTPT APT WITH PHYSICAL THERAPY ON 12/26. Initialized on 12/17/23 13:43 - END OF NOTE 12/17/23 12:21 OT Plan of Care Note by Dolores Flanagan OT Eval OT Inpatient Eval and POC Start: 12/16/23 11:46 Freq: ROUTINE Status: Complete Protocol: Created 12/16/23 11:47 EUGENE (Rec: 12/16/23 11:47 [id number]) Document 12/17/23 11:47 YURI (Rec: 12/17/23 12:20 YURI [id number]) OT Evaluation Subjective Chencho is agreeable to session, reports she was hospitalized in September due to foot surgery and was NWB. She is not WBAT. Pertinent Past Medical History Noncompliance with medical plan of care, morbid obesity, O2 use (4LPM at home), migraines, PE, OA, neuropathy Patient was brought by EMS to ER due to worsening rash and redness over skin folds. Per ER note, patient with poor hygiene and skin care routine. Prior Level of Function Patient lives at home independently utilizing standard walker for mobility, owns a manual w/c but never uses it, independent with meal prep, laundry, and driving. She completes approximately 2 showers/week and will complete a sponge bath on the other days. Equipment at Home Prior to Admission Special Bed,Walker,Long handed sponge,Tub Transfer Bench Home Setup Tub/Shower Combination Date 12/17/23 Feeding WFL Grooming WFL Toileting Impaired Comment ramachandran catheter present to protect skin integrity due to rash. Bed Mobility Impaired Comment Patient currently in air mattress for skin protection/ wound prevention. Patient declines to t/f out of bed; however, able to roll side to side and pull self up in bed with hospital bed features but no assist from therapist. Toilet Transfers Impaired Comment SUBHASH: Patient reports that she is too fearful to t/f out of bed due to height of bariatric bed. Range of Motion WFL Coordination WFL Functional Strength BUE strength: WFL (MMT completed for BUE) Functional Endurance Verbal report: baseline Cognition Alert and oriented x 4 Pain 0/10 (no reported pain) Objective Data/Standardized Assessment(s Chencho is limited with transfers ) this date due to hospital bed , but is adamant that she is return home. Education provided on hygiene and adaptive equpiment to utilized to facilitate safety insight while dressing. Chencho presents with functional UB strength and near baseline with her grooming and bathing despite poor thoroughness OT Plan Of Care Date of Evaluation 12/17/23 Treatment Diagnosis cellulitis Teaching Recipient Patient Patient is Aware of Diagnosis and Yes Prognosis Patient is receptive to Plan of Care and Yes contributory towards OT goals Discharge Recommendations/Plan Patient's ADL status limited due to mobility impairements and bariatric bed use during hospitalization, OT to defer mobility treatments to PT. Additionally, patient is noncompliant to medical plan of care and hygiene. Patient declines education on education regarding caregivers to assist with bathing and skin hygiene. Initialized on 12/17/23 12:21 - END OF NOTE Assessment/Plan (1) Cellulitis Current Visit: Yes Status: Acute Code(s): L03.90 - CELLULITIS, UNSPECIFIED (2) Candidiasis Current Visit: Yes Status: Acute Code(s): B37.9 - CANDIDIASIS, UNSPECIFIED (3) LISETTE (acute kidney injury) Current Visit: Yes Status: Acute Code(s): N17.9 - ACUTE KIDNEY FAILURE, UNSPECIFIED (4) Elevated procalcitonin Current Visit: Yes Status: Acute Code(s): R79.89 - OTHER SPECIFIED ABNORMAL FINDINGS OF BLOOD CHEMISTRY (5) Hypokalemia Current Visit: Yes Status: Acute Code(s): E87.6 - HYPOKALEMIA (6) Morbid obesity Current Visit: No Status: Chronic Code(s): E66.01 - MORBID (SEVERE) OBESITY DUE TO EXCESS CALORIES (7) Restless legs Current Visit: No Status: Chronic (8) COPD (chronic obstructive pulmonary disease) Current Visit: Yes Status: Chronic (9) History of pulmonary embolism Current Visit: Yes Status: Acute Code(s): Z86.711 - PERSONAL HISTORY OF PULMONARY EMBOLISM (10) Obstructive sleep apnea Current Visit: Yes Status: Chronic Code(s): G47.33 - OBSTRUCTIVE SLEEP APNEA (ADULT) (PEDIATRIC) (11) Hypomagnesemia Current Visit: Yes Status: Acute Assessment & Plan: (1) Cellulitis Current Visit: Yes Status: Acute Assessment & Plan: -Clindamycin IV - probiotics - Ramachandran placed to aide in skin healing as pt is also incontinent. - CHG bath daily - good hygiene - Pillow cases between skin folds so skin not touching - WBC 12.0 - Tylenol for pain control /6 - WBC 6.0 / - overall skin improving - Skin now peeling Code(s): L03.90 - CELLULITIS, UNSPECIFIED (2) Candidiasis Current Visit: Yes Status: Acute Assessment & Plan: - Fluconazole IV daily - Nystatin powder after bath daily - BMI 60.7 - most recent A1C- 5.23 on 09/26/23 Code(s): B37.9 - CANDIDIASIS, UNSPECIFIED (3) LISETTE (acute kidney injury) Current Visit: Yes Status: Acute Assessment & Plan: - Creat 1.43 - baseline normal - IVF - trend 5/6 - creat 1.41 - Ramachandran to be flushed as not draining well 5/7 - Hold lasix today - Creat 1.35- improved - flush ramachandran if needed Code(s): N17.9 - ACUTE KIDNEY FAILURE, UNSPECIFIED (4) Elevated procalcitonin Current Visit: Yes Status: Acute Assessment & Plan: - Procal 13.10 - most likely 2:2 cellulitis - UA/ UC negative - denies Abd pain or SOB. Code(s): R79.89 - OTHER SPECIFIED ABNORMAL FINDINGS OF BLOOD CHEMISTRY (5) Hypokalemia Current Visit: Yes Status: Acute Assessment & Plan: - K+ 3.0 in ER- replaced - repeat K+ 3.3- replaced trend 5/6 - K+ 3.9- resolved Code(s): E87.6 - HYPOKALEMIA (6) Morbid obesity Current Visit: No Status: Chronic Assessment & Plan: - BMI 60.7 - advised diet and exercise control - pt states she is bed bound at home- consider HHC - will discuss with CM tomorrow - may need placement as pt had poor hygiene. - PT/OT eval Code(s): E66.01 - MORBID (SEVERE) OBESITY DUE TO EXCESS CALORIES (7) Restless legs Current Visit: No Status: Chronic Assessment & Plan: - Continue requip (8) COPD (chronic obstructive pulmonary disease) Current Visit: Yes Status: Chronic Assessment & Plan: - Continue 4lNC- this is pt's baseline - trend Carbon dioxide - CPAP at night (9) History of pulmonary embolism Current Visit: Yes Status: Acute Assessment & Plan: - Continue Eliquis 5mg BID Code(s): Z86.711 - PERSONAL HISTORY OF PULMONARY EMBOLISM (10) Obstructive sleep apnea Current Visit: Yes Status: Chronic Assessment & Plan: - Continue CPAP at night - BMI 60.7 Code(s): G47.33 - OBSTRUCTIVE SLEEP APNEA (ADULT) (PEDIATRIC) (11) Hypomagnesemia Current Visit: Yes Status: Acute Assessment & Plan: - Mg+ 1.5 replaced 5/7 - Mg+ - pending VTE: Eliquis PPI: pantoprazole Next of KIN: Ellis Shaw [phone] D/C plan: tomorrow Code status: Full Code(s): E83.42 - HYPOMAGNESEMIA
[2023-12-18] MEDS: MAGNESIUM SULF 2 G/50 ML BAG 2 GM/50 ML PIGGYBACK IV ONE (17:54)
[2023-12-19 03:56] VITALS: RESP 20
[2023-12-19 05:10] LABS: Hematocrit 31.9 % (35-47); Hemoglobin 9.3 g/dL (12.0-16.0); Mean Cell Volume 92.2 fL (78-100); Mean Corpuscular Hemoglobin 26.9 pg (26-32); Mean Corpuscular Hgb Concent. 29.2 g/dL (32-36); Mean Platelet Volume 9.6 fL (7.5-11.0); Platelet Count 197 x10^3/uL (150-450); Red Blood Count 3.46 x10^6/uL (4.1-5.4); Red Cell Distribution Width 14.6 % (11.5-14.0); White Blood Count 6.8 x10^3/uL (4.0-10.5)
[2023-12-19 05:11] LABS: ANION GAP 6.5 MEQ/L (5-15); BILIRUBIN,TOTAL 0.4 mg/dL (0.2-1.3); Calcium 6.9 mg/dL (8.4-10.2); Creatinine 1 1.08 mg/dL (0.52-1.04); EST GLOMERULAR FILTRATION RATE 59.5 ML/MIN; MAGNESIUM 1.6 mg/dL (1.6-2.3); Potassium 4.2 mmol/L (3.5-5.1); Total Protein 4.9 g/dL (6.3-8.2)
[2023-12-19 07:31] VITALS: PULSE 64
--- NOTE | 2023-12-19 10:16 | PCM.DS ---
Discharge Summary Date of Admission: 12/16/23 12:06 Date of Discharge: 12/19/23 Admitting Physician: NAZANIN MARTINEZ MD Consults: Consults on Case 12/16/23 08:46 Case Management [facility] Needs Assessment ROUTINE Primary Care Provider: JOLEEN BECKER Allergies Allergies albuterol Allergy (Intermediate, Verified 12/16/23 08:54) Difficulty Breathing adhesive Allergy (Verified 12/16/23 08:54) codeine [Codeine] Allergy (Verified 12/16/23 08:54) Headache INCREASE HTN latex Allergy (Verified 12/16/23 08:54) Penicillins Allergy (Verified 12/16/23 08:54) Nausea and Vomiting SWELLING pineapple [Pineapple] Allergy (Verified 12/16/23 08:54) vancomycin Adverse Reaction (Mild, Verified 12/16/23 08:54) Itching Hospital Summary - Hospital Course Hospital Course: 12/16/23 is a 58 year old female with PMHX of morbid obesity, oxygen use at home of 4lNC, type II DM, COPD, HTN, hyperlipidemia, CHF, migraines, PE, OA, and peripheral neuropathy. She was brought to the emergency department by the paramedics on 12/13/23 for c/o significant pain and redness to areas of skin folds including under both breasts, both antecubital fossae, underneath her pannus and bilateral groins and bilateral upper medial thighs. Patient is noncompliant and has very poor body and skin hygiene. Patient states she has not measured a fever but in the last 3 to 4 days she has noticed feeling feverish and then chills. Patient states typically, she is able to use cornstarch and zinc oxide ointment and these areas improved. However, she states she has been using these medications topically but her symptoms of redness and pain is worsening/expanding. Patient states that she had this before and she was admitted and put on antibiotics and antifungal medication. She was started on Daptomycin in the ER. She was also gave potassium replacement for a K+ of 3.0 on admission. Recheck of K+ was 3.3- again replaced and will recheck. Antibiotics changed to Clindamycin and fluconazole IV started. Ramachandran placed to aide in skin healing. Nursing to bath with CHG and place nystatin powder in folds, then advised pillow cases in between folds so skin not touching. Pt denies CP, SOB, abd. pain, N/V/D. 12/17/23 Pt resting in bed. She continues to have pain from cellulitis. Discussed with pt case with case management as she most likely will need placement. Ramachandran not draining well asked nurse to flush ramachandran. If this continues to not drain well will further investigate. LISETTE slightly improving but not at baseline. Mg+ 1.5 and replaced. Pt denies CP, SOB, abd. pain, N/V/D. 12/18/23 Pt resting in the chair. She was able to get up with the assist of 2 yesterday. All areas of cellulitis improving and skin starting to peel. She states it is itching and burning. Discussed OP care and d/c plans and she is willing to go to rehab for a short period of time if needed. She does not want home health care. LISETTE improving, will hold lasix today. Continue antibiotics. UC and BC results negative. She denies CP, SOB, abd. pain, N/V/D. 12/19/23 Pt resting in bed. Overall Skin has improved. Pt is not able to go to rehab facility as she used all her days recently per her insurance. She is refusing home health care. She states she can take care of herself at home. Advised pt to bath and put medication on affected areas today. If she is unable to do so OT can provide recommendations for assistive devices for proper home care. She denies CP, SOB, Abd. pain, N/V/D. - Vitals & Intake/Output Vital Signs: Vital Signs Temperature 97.4 F 12/19/23 07:30 Pulse Rate 64 12/19/23 07:30 Respiratory Rate 20 12/19/23 07:30 Blood Pressure 94/50 12/19/23 07:30 O2 Sat by Pulse Oximetry 91 L 12/19/23 07:30 Intake & Output: Intake & Output 12/16/23 12/17/23 12/18/23 12/19/23 11:59 11:59 11:59 11:59 Intake Total 450 3782 2360 3058 Output Total 045 408 3926 Balance 450 3332 1460 58 Weight 170.7 kg - Lab Result Diagrams: 12/19/23 04:41 12/19/23 04:41 Lab Results-Last 24 Hrs: Lab Results-Last 24 Hours 12/18/23 12/18/23 12/18/23 Range/Units 11:49 17:13 21:28 WBC (4.0-10.5) x10^3/uL RBC (4.1-5.4) x10^6/uL Hgb (12.0-16.0) g/dL Hct (35-47) % MCV (78-100) fL MCH (26-32) pg MCHC (32-36) g/dL RDW (11.5-14.0) % Plt Count (150-450) x10^3/uL MPV (7.5-11.0) fL Sodium (135-145) mmol/L Potassium (3.5-5.1) mmol/L Chloride (98-107) mmol/L Carbon Dioxide (22-30) mmol/L Anion Gap (5-15) MEQ/L BUN (7-17) mg/dL Creatinine (0.52-1.04) mg/dL Estimated GFR ML/MIN Glucose (74-106) mg/dL POC Glucometer 90 82 74 (74 to 106) mg/dL Calcium (8.4-10.2) mg/dL Magnesium (1.6-2.3) mg/dL Total Bilirubin (0.2-1.3) mg/dL AST (14-36) U/L ALT (0-35) U/L Alkaline Phosphatase (38-126) U/L Serum Total Protein (6.3-8.2) g/dL Albumin (3.5-5.0) g/dL 12/19/23 12/19/23 12/19/23 Range/Units 04:41 04:41 07:17 WBC 6.8 (4.0-10.5) x10^3/uL RBC 3.46 L (4.1-5.4) x10^6/uL Hgb 9.3 L (12.0-16.0) g/dL Hct 31.9 L (35-47) % MCV 92.2 (78-100) fL MCH 26.9 (26-32) pg MCHC 29.2 L (32-36) g/dL RDW 14.6 H (11.5-14.0) % Plt Count 197 (150-450) x10^3/uL MPV 9.6 (7.5-11.0) fL Sodium 134 L (135-145) mmol/L Potassium 4.2 (3.5-5.1) mmol/L Chloride 98 (98-107) mmol/L Carbon Dioxide 34 H (22-30) mmol/L Anion Gap 6.5 (5-15) MEQ/L BUN 10 (7-17) mg/dL Creatinine 1.08 H (0.52-1.04) mg/dL Estimated GFR 59.5 ML/MIN Glucose 93 (74-106) mg/dL POC Glucometer 85 (74 to 106) mg/dL Calcium 6.9 L (8.4-10.2) mg/dL Magnesium 1.6 (1.6-2.3) mg/dL Total Bilirubin 0.40 (0.2-1.3) mg/dL AST 18 (14-36) U/L ALT 8 (0-35) U/L Alkaline Phosphatase 71 (38-126) U/L Serum Total Protein 4.9 L (6.3-8.2) g/dL Albumin 2.0 L (3.5-5.0) g/dL Micro Results-Entire Visit: Microbiology 12/16/23 13:20 Urine Culture - Final Catherized NO GROWTH 12/16/23 05:45 Blood Culture - Preliminary Blood 12/16/23 05:40 Blood Culture - Preliminary Blood Accuchecks Date 12/19/23 Date 12/18/23 Date 12/18/23 Time 17:21 Time 11:59 - Procedures and Test Procedures and Tests throughout Hospitalization: Therapy Orders & Screens 12/16/23 08:23 Respiratory Therapy Consult ONCE Comment: Reason For Exam: 12/16/23 08:46 PT Screen per Nursing Assess ONCE Comment: Protocol Order Physician Instructions: Greater than 3 points order PT Admission Screenin Reason For Exam: Triggered on Admission Diagnosis: Celulitis Open Wound/Cellutlitis/Pressure Ulcers: Yes Acute Fx/ORIF/Change in wt bearing status: No Severe MUSCULOSKELETAL pain: No ADL Dysfunction: Yes Acute CVA w/Hemiparesis/Hemiplegia: No Decreased Functional Mobility/Strength: Yes Sprain/Strain: No Acute Post-op Mobility Dysfunction: No Total Points: 9 RT Screen per Nursing Assess ONCE Comment: Protocol Order Physician Instructions: Greater than 3 points order RT Admission Screen Reason For Exam: Triggered on Admission Diagnosis: Celulitis Diagnosis: Celulitis Pneumonia: No Home O2: Yes: doesn't use Asthma: Yes CHF: No Home CPAP/BIPAP: Yes: CPAP Home Nebs/MDI: Yes Total Points: 19 12/16/23 09:11 Respiratory Therapy Assessment DAILY Comment: Diagnosis: Celulitis 12/16/23 09:14 BiPap/CPAP ROUTINE Comment: Diagnosis: Celulitis 12/16/23 11:42 RT Miscellaneous Order ROUTINE Comment: Physician Instructions: Reason For Exam: continue CPAP at night Diagnosis: Celulitis 12/16/23 11:46 PT Eval & Treat (MD Order) ONCE Reason for Eval:: Morbibd obesity, possible need for placement Diagnosis: Celulitis OT Eval and Treat (MD Order) ROUTINE Comment: Physician Instructions: Reason For Exam: Diagnosis: Celulitis 12/16/23 21:04 Oxygen Nasal Cannula 4 lpm Comment: Diagnosis: Celulitis 12/17/23 13:51 Qualify for Home Oxygen TODAY Comment: FOR DAYTIME O2 Diagnosis: Celulitis Discharge Exam General Appearance: no apparent distress, alert Neurologic Exam: alert, oriented x 3, cooperative, normal mood/affect, nml cerebellar function, sensation nml, No motor deficits Eye Exam: PERRL, EOMI, eyes nml inspection Ears, Nose, Throat Exam: normal ENT inspection, pharynx normal, moist mucous membranes Neck Exam: normal inspection, non-tender, supple, full range of motion Respiratory Exam: normal breath sounds, lungs clear, No respiratory distress Cardiovascular Exam: regular rate/rhythm, normal heart sounds Gastrointestinal/Abdomen Exam: soft, No tenderness, No mass Pelvic Exam: deferred Rectal Exam: deferred Back Exam: normal inspection, normal range of motion, No CVA tenderness, No vertebral tenderness Extremity Exam: normal inspection, normal range of motion Skin Exam: normal color, warm, dry, other (with cellulitis of breasts, both antecubital fossae, underneath her pannus and bilateral groins and bilateral upper medial thighs.) Wound Assessment: Skin/Wound Assessment Wound/Incision Assessment Start: 12/16/23 08:46 Text: Status: Active Freq: Q6H Protocol: Document 12/19/23 08:00 AR (Rec: 12/19/23 09:21 AR [id number]) Wound/Incision Assessment Under Breasts Wound Assessment Shift Assessment Wound Type excoriation Wound Stage Non Pressure Wound General Appearance Open to air,Clean/Dry,Reddened Wound Bed Greatest Portion Pale [place] Surrounding Tissue [place] Comment AREAS CLEANSED WITH HIBICLENS, NYSTATIN APPLIED ORDERED AND PILLOW CASES Abdomen Wound Assessment Shift Assessment Wound Type excoriation Wound Stage Non Pressure Wound General Appearance Open to air,Clean/Dry,Reddened Surrounding Tissue [place] Comment AREAS CLEANSED WITH HIBICLENS, NYSTATIN APPLIED ORDERED AND PILLOW CASES Inner thighs Wound Assessment Shift Assessment Wound Type excoriation Wound Stage Non Pressure Wound General Appearance Open to air,Clean/Dry,Reddened Surrounding Tissue [place] Comment AREAS CLEANSED WITH HIBICLENS, NYSTATIN APPLIED ORDERED AND PILLOW CASES Wound Photo Photo Taken Yes Final Diagnosis/Problem List - Final Discharge Diagnosis/Problem (1) Cellulitis Current Visit: Yes Status: Acute Code(s): L03.90 - CELLULITIS, UNSPECIFIED (2) Candidiasis Current Visit: Yes Status: Acute Code(s): B37.9 - CANDIDIASIS, UNSPECIFIED (3) LISETTE (acute kidney injury) Current Visit: Yes Status: Acute Code(s): N17.9 - ACUTE KIDNEY FAILURE, UNSPECIFIED (4) Elevated procalcitonin Current Visit: Yes Status: Acute Code(s): R79.89 - OTHER SPECIFIED ABNORMAL FINDINGS OF BLOOD CHEMISTRY (5) Hypokalemia Current Visit: Yes Status: Acute Code(s): E87.6 - HYPOKALEMIA (6) Morbid obesity Current Visit: No Status: Chronic Code(s): E66.01 - MORBID (SEVERE) OBESITY DUE TO EXCESS CALORIES (7) Restless legs Current Visit: No Status: Chronic (8) COPD (chronic obstructive pulmonary disease) Current Visit: Yes Status: Chronic (9) History of pulmonary embolism Current Visit: Yes Status: Acute Code(s): Z86.711 - PERSONAL HISTORY OF PU LMONARY EMBOLISM (10) Obstructive sleep apnea Current Visit: Yes Status: Chronic Code(s): G47.33 - OBSTRUCTIVE SLEEP APNEA (ADULT) (PEDIATRIC) (11) Hypomagnesemia Current Visit: Yes Status: Acute Assessment & Plan: (1) Cellulitis Current Visit: Yes Status: Acute Assessment & Plan: -Clindamycin IV - probiotics - Ramachandran placed to aide in skin healing as pt is also incontinent. - CHG bath daily - good hygiene - Pillow cases between skin folds so skin not touching - WBC 12.0 - Tylenol for pain control 12/16 - WBC 6.0 12/17 - overall skin improving - Skin now peeling 12/18 - Skin overall improving - Continue Op antibiotics - Pt refuses HHC - D/C ramachandran Code(s): L03.90 - CELLULITIS, UNSPECIFIED (2) Candidiasis Current Visit: Yes Status: Acute Assessment & Plan: - Fluconazole IV daily - Nystatin powder after bath daily - BMI 60.7 - most recent A1C- 5.23 on 09/26/23 Code(s): B37.9 - CANDIDIASIS, UNSPECIFIED (3) LISETTE (acute kidney injury) Current Visit: Yes Status: Acute Assessment & Plan: - Creat 1.43 - baseline normal - IVF - trend 12/16 - creat 1.41 - Ramachandran to be flushed as not draining well 12/17 - Hold lasix today - Creat 1.35- improved - flush ramachandran if needed 12/18 - Creat 1.08- BL normal- improved - Will need OP f/u labs Code(s): N17.9 - ACUTE KIDNEY FAILURE, UNSPECIFIED (4) Elevated procalcitonin Current Visit: Yes Status: Acute Assessment & Plan: - Procal 13.10 - most likely 2:2 cellulitis - UA/ UC negative - denies Abd pain or SOB. Code(s): R79.89 - OTHER SPECIFIED ABNORMAL FINDINGS OF BLOOD CHEMISTRY (5) Hypokalemia Current Visit: Yes Status: Acute Assessment & Plan: - K+ 3.0 in ER- replaced - repeat K+ 3.3- replaced trend 12/16 - K+ 3.9- resolved Code(s): E87.6 - HYPOKALEMIA (6) Morbid obesity Current Visit: No Status: Chronic Assessment & Plan: - BMI 60.7 - advised diet and exercise control - pt states she is bed bound at home- consider C - will discuss with CM tomorrow - may need placement as pt had poor hygiene. - PT/OT eval Code(s): E66.01 - MORBID (SEVERE) OBESITY DUE TO EXCESS CALORIES (7) Restless legs Current Visit: No Status: Chronic Assessment & Plan: - Continue requip (8) COPD (chronic obstructive pulmonary disease) Current Visit: Yes Status: Chronic Assessment & Plan: - Continue 4lNC- this is pt's baseline - trend Carbon dioxide - CPAP at night (9) History of pulmonary embolism Current Visit: Yes Status: Acute Assessment & Plan: - Continue Eliquis 5mg BID Code(s): Z86.711 - PERSONAL HISTORY OF PULMONARY EMBOLISM (10) Obstructive sleep apnea Current Visit: Yes Status: Chronic Assessment & Plan: - Continue CPAP at night - BMI 60.7 Code(s): G47.33 - OBSTRUCTIVE SLEEP APNEA (ADULT) (PEDIATRIC) (11) Hypomagnesemia Current Visit: Yes Status: Acute Assessment & Plan: - Mg+ 1.5 replaced 5/7 - Mg+ 1.5- replaced 5/8 - Mg+ 1.6 resolved Code(s): E83.42 - HYPOMAGNESEMIA - Discharge Discharge Date: 12/19/23 Disposition: Home, Self-Care Condition: Stable Prescriptions: New Apixaban [Eliquis] 5 mg PO BID 30 Days #60 tablet Apixaban [Eliquis 2.5 mg Tablet] 5 mg PO BID 30 Days #60 tablet Nystatin Powder 15 gm [Nystop Powder 15 gm] 1 gm TP BID 7 Days #2 pkt Continue Ropinirole 2Mg [Requip 2Mg Tab] 2 mg PO HS Duloxetine HCl 30 mg [Cymbalta 30 MG Capsule] 30 mg PO BID Amlodipine Besylate 5 mg [Norvasc 5 mg] 5 mg PO DAILY Potassium Chloride 20 meq PO DAILY PANTOPRAZOLE 40 mg Tablet [Protonix 40MG Tablet] 40 mg PO QAM Furosemide 40 mg [Lasix 40 MG] 40 mg PO DAILY Folic Acid 1 mg [Folate 1 mg] 1,000 units PO DAILY Hydrocodone/Acetaminophen [Hydrocodone-Acetamin 5-325 mg] 1 tab PO Q6HPRN PRN MDD 4 PRN Reason: Pain Trazodone HCl 50 mg [Desyrel 50 mg] 150 mg PO HS Discontinued Cefdinir 300 mg PO CLARIFY Nitrofurantoin Macro 100 mg [Macrobid 100MG Capsule] 100 mg PO BID 7 Days #14 cap Instructions: Oxygen Therapy, Adult (DC) Additional Instructions: WEAR 2L/NC AT ALL TIMES, ALSO CONNECT THIS TO YOUR CPAP WHEN USING IT CALL [facility] DAVIL[facility] AT [phone] WHEN YOU LEAVE [facility] SO THEY CAN MEET YOU AT YOUR HOME TO DELIVER YOUR HOME CONCENTRATOR. IF YOU STRUGGLE TO AFFORD YOUR MEDS OR GROCERIES- REACH OUT TO YOUR CARE COORDINATION NURSEMICHAEL [phone] Follow up with: JOLEEN BECKER NP [Primary Care Provider] -
[2023-12-19 13:01] VITALS: BP 114/58; TEMP 96.9; O2SAT 99
== END 2023-12-19 16:19 | disposition home or self-care (01) | DRG 603 ==
LOC: ED 04:33 → MED SURG 08:09 → OBSVTOIN 12:06
PROVIDERS: ADMIT Internal Medicine; ATTEND Internal Medicine
DX: L03.319 Cellulitis of trunk, unspecified (principal); L03.116 Cellulitis of left lower limb; L03.115 Cellulitis of right lower limb; N17.9 Acute kidney failure, unspecified; B37.9 Candidiasis, unspecified; R79.89 Other specified abnormal findings of blood chemistry; E87.6 Hypokalemia; E66.01 Morbid (severe) obesity due to excess calories; G25.81 Restless legs syndrome; J44.9 Chronic obstructive pulmonary disease, unspecified; G47.33 Obstructive sleep apnea (adult) (pediatric); E83.42 Hypomagnesemia; D72.829 Elevated white blood cell count, unspecified; E11.9 Type 2 diabetes mellitus without complications; I11.0 Hypertensive heart disease with heart failure; I50.9 Heart failure, unspecified; Z86.711 Personal history of pulmonary embolism; Z99.81 Dependence on supplemental oxygen; Z79.899 Other long term (current) drug therapy
CPT/HCPCS: 36000; 36415; 80053; 81001; 82550; 82947; 83735; 84132; 84134; 84145; 85025; 85027; 87040; 87086; 94003; 94660; 94760; 96374; 96375; 97110; 97161; 97165; 97168; 97530; 99284; Q3014; J0878; J1450; J2270; J2405; A9270-GY; J3475